=== PATIENT | female | born 1940 | race Caucasian/White ===

== ENCOUNTER 2021-05-22 10:22 | Outpatient (CLI) | payer MEDICARE, SELFPAY ==
--- NOTE | 2021-05-22 10:28 | XRR_ITS ---
PROCEDURE INFORMATION: Exam: XR Chest Exam date and time: 05/22/2021 10:28 AM Age: 80 years old Clinical indication: Cough and shortness of breath; Additional info: Chronic cough TECHNIQUE: Imaging protocol: XR of the chest. Views: 2 views. COMPARISON: CR XR ribs RT mn 3V w CXR1V [id number] 08/30/2020 3:00 PM FINDINGS: Lungs: Unremarkable. No consolidation. Pleural spaces: Unremarkable. No pleural effusion. No pneumothorax. Heart/Mediastinum: Unremarkable. No cardiomegaly. Bones/joints: Unremarkable. XR/XR chest 2V* [id number] IMPRESSION: No acute findings. Radiation Dose CTDIVOL = (mGy): DLP = (mGy-cm)
== END 2021-05-22 10:23 | disposition home or self-care (01) ==
PROVIDERS: PCP Family Medicine; Visit Provider Otolaryngology
DX: R05.3 Chronic cough (principal)
CPT/HCPCS: 71046

== ENCOUNTER 2021-08-13 15:11 | Observation (INO) | payer MEDICARE, OTHER, SELFPAY ==
[2021-08-13] VITALS (14 sets, daily range): BP systolic 135–150; BP diastolic 61–90; PULSE 74–78; RESP 16–24; TEMP 36.1–36.8; O2SAT 91–99; BMI 36.1
--- NOTE | 2021-08-13 15:16 | CTR_ITS ---
PROCEDURE INFORMATION: Exam: CT Head Without Contrast Exam date and time: 08/13/2021 3:16 PM Age: 81 years old Clinical indication: Weakness, extremity; Left; Additional info: Left sided weakness TECHNIQUE: Imaging protocol: Computed tomography of the head without contrast. Radiation optimization: All CT scans at this facility use at least one of these dose optimization techniques: automated exposure control; mA and/or kV adjustment per patient size (includes targeted exams where dose is matched to clinical indication); or iterative reconstruction. Other technique: STROKE PROTOCOL was implemented. COMPARISON: No relevant prior studies available. RADIATION DOSE METRICS: Total DLP (mGy-cm): 630.07 FINDINGS: Brain: No hemorrhage. No edema. Moderate diffuse cerebral atrophy and sequela of chronic small vessel ischemic disease. No mass effect. Cerebral ventricles: No ventriculomegaly. Paranasal sinuses: Visualized sinuses are unremarkable. No fluid levels. Mastoid air cells: Visualized mastoid air cells are well aerated. Bones/joints: Unremarkable. No acute fracture. Soft tissues: Unremarkable. CT/CT head wo con* [id number] IMPRESSION: No acute intracranial abnormality. ASSESSMENT: ASPECTS ([place] Stroke Program Early CT Score) is 10.
--- NOTE | 2021-08-13 15:17 | CTR_ITS ---
PROCEDURE INFORMATION: Exam: CT Angiography Head With Contrast, Arteriography Exam date and time: 08/13/2021 3:17 PM Age: 81 years old Clinical indication: Weakness; Additional info: Weakness; Left side weakness and expressive aphasia, potential CVA TECHNIQUE: Imaging protocol: Computed tomography angiography of the head with contrast. Exam focused on the arteries. 3D rendering (Not supervised by radiologist): MIP and/or 3D reconstructed images were created by the technologist. Radiation optimization: All CT scans at this facility use at least one of these dose optimization techniques: automated exposure control; mA and/or kV adjustment per patient size (includes targeted exams where dose is matched to clinical indication); or iterative reconstruction. Contrast material: VISI 320; Contrast volume: 95 ml; Contrast route: INTRAVENOUS (IV); COMPARISON: CT head wo con* [id number] 08/13/2021 3:15 PM RADIATION DOSE METRICS: Total DLP (mGy-cm): 2172.98 FINDINGS: ANTERIOR CIRCULATION: Right internal carotid artery: Unremarkable. Intracranial segment is patent with no significant stenosis. No aneurysm. Right middle cerebral artery: Unremarkable. No occlusion or significant stenosis. No aneurysm. Right anterior cerebral artery: Unremarkable. No occlusion or significant stenosis. No aneurysm. Left internal carotid artery: Unremarkable. Intracranial segment is patent with no significant stenosis. No aneurysm. Left middle cerebral artery: Unremarkable. No occlusion or significant stenosis. No aneurysm. Left anterior cerebral artery: Unremarkable. No occlusion or significant stenosis. No aneurysm. POSTERIOR CIRCULATION: Right vertebral artery: Unremarkable. No occlusion or significant stenosis. No aneurysm. Left vertebral artery: Unremarkable. No occlusion or significant stenosis. No aneurysm. Basilar artery: Unremarkable. No occlusion or significant stenosis. No aneurysm. Right posterior cerebral artery: Unremarkable. No occlusion or significant stenosis. No aneurysm. Left posterior cerebral artery: Unremarkable. No occlusion or significant stenosis. No aneurysm. Brain: No definite mass, mass effect, or midline shift. Cerebral ventricles: No ventriculomegaly. Bones/joints: Unremarkable. No acute fracture. Soft tissues: Unremarkable. PROCEDURE INFORMATION: Exam: CT Angiography Neck With Contrast Exam date and time: 08/13/2021 3:17 PM Age: 81 years old Clinical indication: Weakness; Additional info: Weakness; Left side weakness and expressive aphasia, potential CVA TECHNIQUE: Imaging protocol: Computed tomography angiography of the neck with contrast. 3D rendering (Not supervised by radiologist): MIP and/or 3D reconstructed images were created by the technologist. Radiation optimization: All CT scans at this facility use at least one of these dose optimization techniques: automated exposure control; mA and/or kV adjustment per patient size (includes targeted exams where dose is matched to clinical indication); or iterative reconstruction. Contrast material: VISI 320; Contrast volume: 95 ml; Contrast route: INTRAVENOUS (IV); COMPARISON: CT head wo con* [id number] 08/13/2021 3:15 PM RADIATION DOSE METRICS: Total DLP (mGy-cm): 2172.98 FINDINGS: Right common carotid artery: No stenosis. No dissection or occlusion. Right internal carotid artery: Mild stenosis at the origin of the right internal carotid artery with less than 50% luminal narrowing. No dissection or occlusion. Right external carotid artery: No occlusion or stenosis of the origin. Left common carotid artery: No stenosis. No dissection or occlusion. Left internal carotid artery: Mild stenosis at the origin of the left internal carotid artery with less than 50% luminal narrowing. No dissection or occlusion. Left external carotid artery: No occlusion or stenosis of the origin. Right vertebral artery: No stenosis. No dissection or occlusion. Left vertebral artery: No stenosis. No dissection or occlusion. Soft tissues: Normal. No significant soft tissue swelling. Bones/joints: No acute fracture. CT/CT angio headneck* [id number] IMPRESSION: No large vessel stenosis or occlusion. IMPRESSION: Mild stenosis at the origins of both internal carotid arteries. No significant stenosis or occlusion. REFERENCES: NASCET CRITERIA. The degree of internal carotid artery stenosis is based on NASCET criteria. Normal is no stenosis. Mild is less than 50% stenosis. Moderate is 50-69% stenosis. Severe is 70% to 99% stenosis. Total occlusion is no detectable patent lumen.
--- NOTE | 2021-08-13 15:18 | ECG_ITS ---
[facility] Test Date: 2021-08-13 Pat Name: Shena Moreno Department: Room: Gender: Female Splitter Head: : 1940 Requested By: Hieu Yost Order Number: [id number] Monika MD: Roland Colunga M.D. 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 [id number]
--- NOTE | 2021-08-13 15:18 | XRR_ITS ---
PROCEDURE INFORMATION: Exam: XR Chest Exam date and time: 08/13/2021 3:18 PM Age: 81 years old Clinical indication: Other: Weakness; Additional info: L side weakness TECHNIQUE: Imaging protocol: XR of the chest. Views: 1 view. COMPARISON: CR XR chest 2V* [id number] 05/22/2021 10:39 AM FINDINGS: Lungs: Diffuse coarsening of the lung parenchyma. No consolidation. Pleural spaces: No pleural effusion. No pneumothorax. Heart/Mediastinum: Mild cardiomegaly. Bones/joints: Visualized osseous structures are intact. XR/XR chest 1V portable [id number] IMPRESSION: Mild cardiomegaly. No acute findings.
--- NOTE | 2021-08-13 15:21 | W.ED.NEUROSD ---
HPI - Neuro Symptoms/Deficit General: Chief Complaint: Neuro Symptoms/Deficit Stated Complaint: LEFT SIDED WEAKNESS; DYSPHASIA Time Seen by Provider: 08/13/21 15:18 Source: EMS Mode of arrival: EMS Limitations: no limitations History of Present Illness: Due toAccording to EMS, patient had witnessed left upper and lower extremity weakness with expressive aphasia the started at 1420 today. Patient reportedly had blood pressure 150/78 in route with heart rate of 80 and atrial fibrillation with occasional PVCs on their monitor. Oxygen saturation was 92% on room air for them. When paramedics, possible history includes hypothyroidism, anxiety, hypertension. Patient states that when she was at home she was having trouble putting a bag in the freezer with her left hand. She states she felt numbness in her left upper extremity and hand. She states she has chronic numbness and tingling in her feet. Diabetic neuropathy. She is a insulin-dependent diabetic. see nursing assessment. Last Observed Normal: 14:20 Associated symptoms: Reports headache(s) (Behind the left brow); Deny chest pain, nausea or vomiting Review of Systems Narrative: Patient awake alert and oriented x3 at this time. According to family, patient had expressive aphasia earlier but this is cleared now. Const: Denies: fever(s) or chills Eyes: Denies: change in vision ENMT: Denies: throat pain Card: Denies: chest pain, palpitations, edema or lightheadedness Resp: Denies: dyspnea GI: Denies: abdominal pain, nausea or vomiting : Denies: flank pain Musc: Denies: neck pain, back pain, extremity pain, extremity swelling or joint pain Skin/Breast: Denies: rash or pruritus Neuro: Reports: headache(s) (Behind the left brow), weakness in extremities, lack of coordination and other (Expressive aphasia; paresthesias and weakness to the left upper extremity) Psych: Denies: anxiety Aaron/Lymph: Denies: enlarged lymph nodes PFSH ED PFSH: Family History Other Diabetes Heart disease NIH stroke score NIHSS: Level Of Consciousness - 1a: 0 Level Of Consciousness Questions - 1b: Both Correct Level Of Consciousness Commands - 1c: Both Correct Best Gaze - 2: Normal Visual Keyes - 3: No Visual Loss Facial Palsy - 4: Minor Paralysis Motor Arm Right - 5: No Drift Motor Arm Left - 5: Drift (Mild) Motor Leg Right - 6: No Drift Motor Leg Left - 6: No Drift Limb Ataxia - 7: Present In One Limb (Mild) Sensory - 8: Mild To Moderate Loss Best Language - 9: No Aphasia Dysarthia - 10: Normal Extinction And Inattention - 11: 0 Score: Total Score: 4 Physical Exam Const: COMMON NORMALS: no acute distress, patient oriented x3, no limitations, alert and well nourished GENERAL APPEARANCE: cooperative NUTRITIONAL APPEARANCE: obese ORIENTATION/CONSCIOUSNESS: Yes oriented to person and Yes oriented to time HENMT: COMMON NORMALS: normocephalic and atraumatic HEAD & SCALP: normocephalic and atraumatic FACE & SINUS: normal facial exam Eye: COMMON NORMALS: EOMs intact bilaterally Neck/C-Spine: COMMON NORMALS: full ROM, no lymphadenopathy, supple and no meningeal signs GENERAL: Yes normal visual inspection CAROTIDS: No bruit Lymph: LYMPHATIC: no lymphadenopathy noted Chest: COMMONS NORMALS: normal inspection of the chest and normal palpation of entire chest wall CHEST: No Ecchymosis present and No rash Resp: COMMON NORMALS: normal respiratory effort, No retractions and clear to auscultation bilaterally EFFORT & INSPECTION: No respiratory distress AUSCULTATION: clear to auscultation bilaterally Cardio: COMMON NORMALS: regular rate, regular rhythm and Peripheral pulses 2+ throughout JUGULAR VENOUS DISTENTION: no JVD RATE: regular rate RHYTHM: regular rhythm and other (Occasional ectopy) PERIPHERAL PULSES: Peripheral pulses 2+ throughout GI: COMMON NORMALS: Normal to inspection, nondistended, normoactive bowel sounds present and non-tender (Obese) : COMMON NORMALS: Yes no CVA tenderness BLADDER/KIDNEY EXAM: Yes no CVA tenderness Back/Pelvis: COMMON NORMALS: no CVA tenderness Extremity: COMMON NORMALS: normal to inspection, full ROM and capillary refill normal Neuro: LYNSEY COMA SCALE: other (15) COMMON NORMALS: patient oriented x3, CN's II-XII intact bilaterally, no focal motor deficits and no sensory deficits noted SENSORIUM/ORIENTATION: Yes alert, Yes oriented to person and Yes oriented to time MENINGEAL SIGNS: Yes no meningeal signs OTHER: Patient has minimal ataxia to the left upper extremity. Patient has 4+ out of 5 strength in the left upper and lower extremity. Patient states she has numbness in the left upper extremity. She also has chronic numbness and tingling in both feet due to diabetic neuropathy. She has minimal flattening of the nasolabial fold to the left side of the face with smile. Speech is normal. Psych: COMMON NORMALS: mental status grossly normal and Normal thought process present THOUGHT PROCESS: Normal thought process present Skin: COMMON NORMALS: no rashes or lesions noted and no wounds GENERAL SKIN EXAM: no rashes or lesions noted Course Vital Signs: Vital signs: Vital Signs Temperature 98.2 F 08/13/21 15:31 Pulse Rate 77 08/13/21 17:10 Respiratory Rate 18 08/13/21 17:10 Blood Pressure 150/72 08/13/21 17:10 Pulse Oximetry 94 08/13/21 17:10 MDM - Neuro Symptoms/Deficit Medical Decision Making Family states patient did have expressive aphasia earlier. Family states speech is normal now. Family also states use of the left upper and lower extremities have improved dramatically. Patient still has deficits minimally in the left lower extremity. Patient has mild deficit in the left upper extremity. Lab Data I reviewed the patient's lab results. : 08/13/21 15:00 08/13/21 15:[address] 08/13/21 15:16 IMPRESSION: No acute intracranial abnormality. ASSESSMENT: ASPECTS ([place] Stroke Program Early CT Score) is 10. Head/Neck CTA 08/13/21 15:17 IMPRESSION: No large vessel stenosis or occlusion. IMPRESSION: Mild stenosis at the origins of both internal carotid arteries. No significant stenosis or occlusion. REFERENCES: NASCET CRITERIA. The degree of internal carotid artery stenosis is based on NASCET criteria. Normal is no stenosis. Mild is less than 50% stenosis. Moderate is 50-69% stenosis. Severe is 70% to 99% stenosis. Total occlusion is no detectable patent lumen. Chest X-Ray 08/13/21 15:18 IMPRESSION: Mild cardiomegaly. No acute findings. Laboratory Results WBC 10.6 10^3/uL (4.0-10.0) H 08/13/21 15:00 RBC 5.08 10^6/uL (4.1-5.3) 08/13/21 15:00 Hgb 14.4 g/dL (11.5-15.3) 08/13/21 15:00 Hct 44.1 % (37.0-47.0) 08/13/21 15:00 MCV 86.8 fl (81-99) 08/13/21 15:00 MCH 28.3 pg (28.0-34.0) 08/13/21 15:00 MCHC 32.7 g/dL (30.0-36.0) 08/13/21 15:00 RDW 14.0 % (12.1-15.1) 08/13/21 15:00 Plt Count 313 10^3/cmm (130-400) 08/13/21 15:00 MPV 10.2 fL (7.4-10.4) 08/13/21 15:00 Neut % (Auto) 57.9 % 08/13/21 15:00 Lymph % (Auto) 27.2 % 08/13/21 15:00 Dickey % (Auto) 9.1 % 08/13/21 15:00 Eos % (Auto) 4.6 % 08/13/21 15:00 Baso % (Auto) 0.8 % 08/13/21 15:00 Neut # (Auto) 6.16 10^3/uL (1.8-7.7) 08/13/21 15:00 Lymph # (Auto) 2.9 10^3/uL (0.8-4.8) 08/13/21 15:00 Dickey # (Auto) 1.0 10^3/uL (0.2-0.9) H 08/13/21 15:00 Eos # (Auto) 0.5 10^3/uL (0.0-0.8) 08/13/21 15:00 Baso # (Auto) 0.1 10^3/uL (0.0-0.1) 08/13/21 15:00 Nucleated RBC % (auto) 0 % 08/13/21 15:00 Nucleated RBCs # 0.0 /100WBC 08/13/21 15:00 PT 13.80 SECONDS (12.1-14.9) 08/13/21 15:00 INR 1.03 (0.8-1.2) 08/13/21 15:00 APTT 27.4 SECONDS (23.9-36.7) 08/13/21 15:00 Sodium 137 mmol/L (136-145) 08/13/21 15:00 Potassium 3.5 mmol/L (3.5-5.1) 08/13/21 15:00 Chloride 99 mmol/L (98-107) 08/13/21 15:00 Carbon Dioxide 27 mmol/L (22-29) 08/13/21 15:00 Anion Gap 14.5 (5-19) 08/13/21 15:00 BUN 13 mg/dL (8-23) 08/13/21 15:00 Creatinine 0.5 mg/dL (0.5-0.9) 08/13/21 15:00 GFR Calculation Not Reportable 08/13/21 15:00 Glucose 207 mg/dL (65-115) H 08/13/21 15:00 POC Glucose 172 mg/dL (70-110) H 08/13/21 15:26 Calculated Osmolality 290 mOsm/kg (285-295) 08/13/21 15:00 Calcium 9.6 mg/dL (8.5-10.5) 08/13/21 15:00 Magnesium 1.7 mg/dL (1.7-2.3) 08/13/21 15:00 Total Bilirubin 0.5 mg/dL (0.15-1.2) 08/13/21 15:00 AST 14 U/L (0-32) 08/13/21 15:00 ALT 15 U/L (0-33) 08/13/21 15:00 Alkaline Phosphatase 97 IU/L (35-105) 08/13/21 15:00 Troponin T Baseline 15 ng/L (0-10) H 08/13/21 15:00 Total Protein 6.7 g/dL (6.6-8.7) 08/13/21 15:00 Albumin 4.2 g/dL (3.5-5.2) 08/13/21 15:00 Globulin 2.5 g/dL (1.3-4.6) 08/13/21 15:[address] Head: Radiologist's impression: PROCEDURE INFORMATION: Exam: CT Head Without Contrast Exam date and time: 08/13/2021 3:16 PM Age: 81 years old Clinical indication: Weakness, extremity; Left; Additional info: Left sided weakness TECHNIQUE: Imaging protocol: Computed tomography of the head without contrast. Radiation optimization: All CT scans at this facility use at least one of these dose optimization techniques: automated exposure control; mA and/or kV adjustment per patient size (includes targeted exams where dose is matched to clinical indication); or iterative reconstruction. Other technique: STROKE PROTOCOL was implemented. COMPARISON: No relevant prior studies available. RADIATION DOSE METRICS: Total DLP (mGy-cm): 630.07 FINDINGS: Brain: No hemorrhage. No edema. Moderate diffuse cerebral atrophy and sequela of chronic small vessel ischemic disease. No mass effect. Cerebral ventricles: No ventriculomegaly. Paranasal sinuses: Visualized sinuses are unremarkable. No fluid levels. Mastoid air cells: Visualized mastoid air cells are well aerated. Bones/joints: Unremarkable. No acute fracture. Soft tissues: Unremarkable. CT/CT head wo con* [id number] IMPRESSION: No acute intracranial abnormality. ? ASSESSMENT: ASPECTS ([place] Stroke Program Early CT Score) is 10. ? Dictated By: Thierno Pryor DO Signed By: Thierno Pryor DO Signed Date/Time: 08/13/[address]: Radiologist's impression: PROCEDURE INFORMATION: Exam: CT Angiography Neck With Contrast Exam date and time: 08/13/2021 3:17 PM Age: 81 years old Clinical indication: Weakness; Additional info: Weakness; Left side weakness and expressive aphasia, potential CVA TECHNIQUE: Imaging protocol: Computed tomography angiography of the neck with contrast. 3D rendering (Not supervised by radiologist): MIP and/or 3D reconstructed images were created by the technologist. Radiation optimization: All CT scans at this facility use at least one of these dose optimization techniques: automated exposure control; mA and/or kV adjustment per patient size (includes targeted exams where dose is matched to clinical indication); or iterative reconstruction. Contrast material: VISI 320; Contrast volume: 95 ml; Contrast route: INTRAVENOUS (IV);? COMPARISON: CT head wo con* [id number] 08/13/2021 3:15 PM RADIATION DOSE METRICS: Total DLP (mGy-cm): 2172.98 FINDINGS: Right common carotid artery: No stenosis. No dissection or occlusion. Right internal carotid artery: Mild stenosis at the origin of the right internal carotid artery with less than 50% luminal narrowing. No dissection or occlusion. Right external carotid artery: No occlusion or stenosis of the origin.? Left common carotid artery: No stenosis. No dissection or occlusion. Left internal carotid artery: Mild stenosis at the origin of the left internal carotid artery with less than 50% luminal narrowing. No dissection or occlusion. Left external carotid artery: No occlusion or stenosis of the origin.? Right vertebral artery: No stenosis. No dissection or occlusion. Left vertebral artery: No stenosis. No dissection or occlusion. Soft tissues: Normal. No significant soft tissue swelling. Bones/joints: No acute fracture. CT/CT angio headneck* [id number] IMPRESSION: No large vessel stenosis or occlusion. ? ? IMPRESSION: Mild stenosis at the origins of both internal carotid arteries. No significant stenosis or occlusion. ? REFERENCES: NASCET CRITERIA. The degree of internal carotid artery stenosis is based on NASCET criteria. Normal is no stenosis. Mild is less than 50% stenosis. Moderate is 50-69% stenosis. Severe is 70% to 99% stenosis. Total occlusion is no detectable patent lumen. ? Dictated By: Thierno Pryor DO Signed By: Thierno Pryor DO Signed Date/Time: 08/13/21 1541 CXR: Radiologist's impression: PROCEDURE INFORMATION: Exam: XR Chest Exam date and time: 08/13/2021 3:18 PM Age: 81 years old Clinical indication: Other: Weakness; Additional info: L side weakness TECHNIQUE: Imaging protocol: XR of the chest. Views: 1 view. COMPARISON: CR XR chest 2V* [id number] 05/22/2021 10:39 AM FINDINGS: Lungs: Diffuse coarsening of the lung parenchyma. No consolidation. Pleural spaces: No pleural effusion. No pneumothorax. Heart/Mediastinum: Mild cardiomegaly. Bones/joints: Visualized osseous structures are intact. XR/XR chest 1V portable [id number] IMPRESSION: Mild cardiomegaly. No acute findings. ? Dictated By: Thierno Pryor DO Signed By: Thierno Pryor DO Signed Date/Time: 08/13/21 1609 EKG Data EKG 1: I personally reviewed and interpreted this EKG as follows: EKG interpretation date: 08/13/21 EKG interpretation time: 15:45 Prior EKG tracings: not available for review Interpretation: EKG shows normal sinus rhythm with first-degree AV block, early repolarization. Normal P wave, normal T wave. Nonspecific ST-T changes with early repolarization. Prolonged QT interval of QT of 0.445 seconds. Normal axis. Other Data 1541: Telemetry shows normal sinus rhythm with occasional PACs heart rate 78. 1626: nurse states pt passed dysphagia screen. awaiting tele-neuro consult. 1730: Dr. Ornelas teleneurologist from [facility] examined the patient via telemedicine. He stated the patient had NIH score or of 1 at the time of his exam. He said there was mild ataxia in the left upper extremity. He states the rest of the symptoms had resolved. He does not right recommend thrombolytics. He does recommend observation in the hospital. I did discuss the case with the hospitalist Dr. Whitfield. He will see the patient emergency room. I did write bridge orders. Discharge Plan Discharge Patient Disposition: Placed in Observation Clinical Impression: Cerebrovascular accident Qualifiers: CVA mechanism: unspecified Qualified Code(s): I63.9 - Cerebral infarction, unspecified Diabetes mellitus Qualifiers: Diabetes mellitus type: type 2 Diabetes mellitus senior living insulin use: with senior living use Diabetes mellitus complication status: with hyperglycemia Qualified Code(s): E11.65 - Type 2 diabetes mellitus with hyperglycemia Coding Level of Care Code ED Polishing Wheel Setter for g Fwd Exam Comprehensive
[2021-08-13] MEDS: iodixanol 320 mg/mL 100mL Btl IV (15:22)
[2021-08-13 15:28] LABS: Basophils # 0.1 10^3/uL (0.0-0.1); Basophils % 0.8 %; Eosinophils # 0.5 10^3/uL (0.0-0.8); Eosinophils % 4.6 %; Hematocrit 44.1 % (37.0-47.0); Hemoglobin 14.4 g/dL (11.5-15.3); Lymphocytes # 2.9 10^3/uL (0.8-4.8); Lymphocytes % 27.2 %; Mean Corpuscular HGB Conc 32.7 g/dL (30.0-36.0); Mean Corpuscular Hemoglobin 28.3 pg (28.0-34.0); Mean Corpuscular Volume 86.8 fl (81-99); Mean Platelet Volume 10.2 fL (7.4-10.4); Monocytes % 9.1 %; Neutrophils # 6.16 10^3/uL (1.8-7.7); Neutrophils % 57.9 %; Nucleated Red Blood Cells % 0 %; Platelet Count 313 10^3/cmm (130-400); Red Blood Count 5.08 10^6/uL (4.1-5.3); White Blood Count 10.6 10^3/uL (4.0-10.0)
[2021-08-13 15:30] LABS: Glucose Point of Care 172 mg/dL (70-110)
[2021-08-13 15:48] LABS: INR 1.03 (0.8-1.2)
[2021-08-13 15:50] LABS: Partial Thromboplastin Time 27.4 SECONDS (23.9-36.7)
[2021-08-13 15:59] LABS: Alanine Aminotransferase 15 U/L (0-33); Albumin Level 4.2 g/dL (3.5-5.2); Alkaline Phosphatase 97 IU/L (35-105); Anion Gap 14.5 (5-19); Aspartate Amino Transferase 14 U/L (0-32); Blood Urea Nitrogen 13 mg/dL (8-23); Calcium 9.6 mg/dL (8.5-10.5); Carbon Dioxide 27 mmol/L (22-29); Chloride 99 mmol/L (98-107); Globulin 2.5 g/dL (1.3-4.6); Glucose 207 mg/dL (65-115); Magnesium 1.7 mg/dL (1.7-2.3); Osmolality Calculated 290 mOsm/kg (285-295); Potassium 3.5 mmol/L (3.5-5.1); Sodium 137 mmol/L (136-145); Total Bilirubin 0.5 mg/dL (0.15-1.2); Total Protein 6.7 g/dL (6.6-8.7); Troponin(5th) Baseline 15 ng/L (0-10)
[2021-08-13] MEDS: acetaminophen 325 mg Tablet 650 MG PO (17:10)
--- NOTE | 2021-08-13 17:11 | PC.NURSE ---
Telehealth in process with [facility] .
--- NOTE | 2021-08-13 17:40 | PC.NURSE ---
patient assisted to bed nathan per myself and Kale Rn with no difficulties. patient urinated approx 200 ml of clear, yellow urine. patient re-positioned in bed . patient in no obivous distress. Patinet on case monitor. Side rails raised x 2 and bed inl ow, locked position. call light within reach. Family at bedside.
[2021-08-13 17:42] LABS: Troponin 5 2HR 13.46 ng/L (0-10)
[2021-08-13 17:47] LABS: Troponin 5 2HR Delta -1.54 ABS# (0-10)
[2021-08-13] MEDS: clopidogrel 75 mg Tablet PO (17:58)
--- NOTE | 2021-08-13 18:18 | P.HP_ITS ---
Providers/Chief Complaint Primary Care Provider: Nuris Moran DO Chief Complaint: LEFT SIDED WEAKNESS; DYSPHASIA History of Present Illness History as per patient,communication with ERP and chart review. Shena Moreno is a 81 year old female with past medical history of hypertension, hypothyroidism, insulin-dependent type 2 diabetes mellitus, migraine headache who was brought into the ER via EMS today after history taken through the patient, patient had witnessed left upper and lower extremity weakness with expressive aphasia the started at 1420 today. During the stay in the ER patient remained hemodynamically stable and continued to improve. By the time I had seen the patient patient's weakness had improved and had minimal weakness in the left upper extremities. 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 CT imaging ordered as below. Timeframe as per my review of the chart is as follows: 162: Nurse states pt passed dysphagia screen.? Awaiting tele-neuro consult. 1729:? Dr. Ornelas teleneurologist from [facility] examined the patient via telemedicine.? He stated the patient had NIH score or of 1 at the time of his exam.? He said there was mild ataxia in the left upper extremity.? He states the rest of the symptoms had resolved.? He does not right recommend thrombolytics.? He does recommend observation in the hospital.? Review of Systems General: Reports: 10 or more systems reviewed and unremarkable except in HPI and below Const: Denies: fever(s), chills, body aches, change in appetite, change in weight, malaise, night sweats, diaphoresis, change in sleep pattern, daytime s leepiness or snoring Eyes: Denies: change in vision, blurry vision, photophobia, eye discomfort or eye discharge ENMT: Denies: throat pain, enlarged tonsils, hoarseness, mouth pain, oral sores, dry mouth, tinnitus, nasal congestion or post nasal drip Card: Denies: chest pain, palpitations, irregular heart rhythm, edema, swelling of feet/ankles, lightheadedness, syncope, pre-syncope, dyspnea on exertion, orthopnea, leg pain with exertion or acrocyanosis Resp: Denies: dyspnea, productive cough, non-productive cough, wheezing, stridor, pain on inspiration, change in phlegm color, hemoptysis or chest congestion GI: Denies: abdominal pain, nausea, vomiting, hematemesis, coffee ground emesis, dysphagia, heartburn, diarrhea, constipation, bloating, GI cramping, change in bowel habits, pain on defecation, hematochezia or melena : Denies: flank pain, dysuria, urinary frequency, urinary urgency, urinary hesitancy, nocturia or hematuria Musc: Denies: neck pain, back pain, extremity pain, joint pain, joint swelling, joint redness, joint stiffness or limited range of motion Neuro: Denies: headache(s), numbness in extremities, weakness in extremities, sensory changes, lack of coordination, difficulty walking, frequent falls, dizziness, vertigo, confusion, Slurred speech present, difficulty communicating thoughts or seizure-like activity Psych: Denies: anxiety, depression, mood swings, panic attacks, hopelessness or irritability Endo: Denies: polyuria, polydipsia, tired all the time, cold intolerance, excessive sweating, flushing or heat intolerance Aaron/Lymph: Denies: easy bruising or easy bleeding All/Imm: Denies: tongue swelling, facial swelling or acute wheezing Medications/Allergies Home Medications Medication Instructions Recorded Confirmed Last Taken Type albuterol sulfate 90 mcg/actuation 2 puff INHALATION Q4H PRN gm 07/10/19 08/13/21 Unknown History aerosol inhaler (Proventil HFA) blood sugar diagnostic (OneTouch #10 each 07/10/19 08/13/21 Unknown History Ultra Blue Test Strip) cetirizine 10 mg tablet (All Day 10 mg PO DAILY tab 07/10/19 08/13/21 08/12/21 History Allergy (cetirizine)) cholecalciferol (vitamin D3) 125 5,000 unit PO .COMPLEX cap 07/10/19 08/13/21 Unknown History mcg (5,000 unit) capsule dapagliflozin 10 mg tablet 10 mg PO QAM 07/10/19 08/13/21 08/13/21 History (Farxiga) fluticasone propionate 50 2 spray INTRANASAL QDAY 07/10/19 08/13/21 Unknown History mcg/actuation nasal spray,suspension hard/soft/gas permeable prods #12 ml 07/10/19 08/13/21 Unknown History (Systane Contacts) losartan 25 mg tablet (Cozaar) 25 mg PO DAILY 07/10/19 08/13/21 08/12/21 History pantoprazole 20 mg tablet,delayed 20 mg PO DAILY 07/10/19 08/13/21 08/12/21 History release pen needle, diabetic 31 gauge x #30 each 07/10/19 08/13/21 Unknown History 11/06 (Comfort EZ Pen [place]) polyethylene glycol 3350 17 17 gm PO DAILY PRN 07/10/19 08/13/21 Unknown History gram/dose oral powder (Miralax) hydroxyzine HCl 25 mg tablet 25 mg PO ONCE PRN #30 tab 07/14/19 08/13/21 Unknown Rx atorvastatin 10 mg tablet 10 mg PO DAILY 08/13/21 08/13/21 08/12/21 History duloxetine 30 mg capsule,delayed 30 mg PO BEDTIME 08/13/21 08/13/21 08/12/21 History release insulin glargine U-300 conc 300 36 unit SUBCUT QDAY 08/13/21 08/13/21 08/13/21 History unit/mL (3 mL) subcutaneous pen (Toujeo Max U-300 SoloStar) levothyroxine 50 mcg tablet 50 mcg PO DAILY 08/13/21 08/13/21 08/13/21 History semaglutide (Ozempic) 0.5 mg SUBCUT Q7D 08/13/21 08/13/21 08/13/21 History Allergies Allergy/AdvReac Type Severity Reaction Status Date / Time CLEMENTE Inhibitors Allergy ADR-Cough Verified 01/27/20 13:27 aspirin Allergy ADR-Nausea Verified 01/27/20 13:27 codeine Allergy ALGY-Swell Verified 01/27/20 13:27 Lip/Tongue/Throat metformin Allergy ADR-Diarrhe Verified 01/27/20 13:27 a nitrofurantoin Allergy ALGY-Rash Verified 01/27/20 13:27 [From Macrobid] PFSH Acute PFSH: Medical History Anxiety Bile reflux esophagitis Diabetes mellitus type 2 in obese DJD (degenerative joint disease) Hypertension, benign Hypothyroidism Insulin long-term use Myalgia Family History Other Diabetes Heart disease Vitals/I&O/Wt Last Vital Signs Temp 98.2 F 08/13/21 15:31 Pulse 77 08/13/21 17:10 Resp 18 08/13/21 17:10 BP 150/72 08/13/21 17:10 Pulse Ox 94 08/13/21 17:10 Weight last 48 hrs Weight 89.63 kg Physical Exam Narrative: General: No acute distress, AO x3 HEENT: PERRLA, pupils bilaterally equal and reactive Chest: Normal vesicular breath sounds, no added sounds, equal good air entry bilaterally CVS: S1-S2 regular, no murmurs, no tachycardia, no gallops, no rubs Abdomen: Soft, nontender, no organomegaly, bowel sounds present Neuro: patient oriented x3, CN's II-XII intact bilaterally, no focal motor deficits and no sensory deficits noted? SENSORIUM/ORIENTATION: Yes alert, Yes oriented to person and Yes oriented to time? MENINGEAL SIGNS: No meningeal signs? OTHER: Patient has minimal ataxia to the left upper extremity.? Patient has 4+ out of 5 strength in the left upper and lower extremity.? Patient states she has numbness in the left upper extremity.? She also has chronic numbness and tingling in both feet due to diabetic neuropathy.? She has minimal flattening of the nasolabial fold to the left side of the face with smile.? Speech is normal. Data : 08/14/21 02:37 08/14/21 02:37 Other Labs: Radiology Impressions Head CT 08/13/21 15:16 IMPRESSION: No acute intracranial abnormality. ASSESSMENT: ASPECTS ([place] Stroke Program Early CT Score) is 10. Head/Neck CTA 08/13/21 15:17 IMPRESSION: No large vessel stenosis or occlusion. IMPRESSION: Mild stenosis at the origins of both internal carotid arteries. No significant stenosis or occlusion. REFERENCES: NASCET CRITERIA. The degree of internal carotid artery stenosis is based on NASCET criteria. Normal is no stenosis. Mild is less than 50% stenosis. Moderate is 50-69% stenosis. Severe is 70% to 99% stenosis. Total occlusion is no detectable patent lumen. Chest X-Ray 08/13/21 15:18 IMPRESSION: Mild cardiomegaly. No acute findings. Laboratory Results WBC 10.6 10^3/uL (4.0-10.0) H 08/13/21 15:00 RBC 5.08 10^6/uL (4.1-5.3) 08/13/21 15:00 Hgb 14.4 g/dL (11.5-15.3) 08/13/21 15:00 Hct 44.1 % (37.0-47.0) 08/13/21 15:00 MCV 86.8 fl (81-99) 08/13/21 15:00 MCH 28.3 pg (28.0-34.0) 08/13/21 15:00 MCHC 32.7 g/dL (30.0-36.0) 08/13/21 15:00 RDW 14.0 % (12.1-15.1) 08/13/21 15:00 Plt Count 313 10^3/cmm (130-400) 08/13/21 15:00 MPV 10.2 fL (7.4-10.4) 08/13/21 15:00 Neut % (Auto) 57.9 % 08/13/21 15:00 Lymph % (Auto) 27.2 % 08/13/21 15:00 [place] % (Auto) 9.1 % 08/13/21 15:00 Eos % (Auto) 4.6 % 08/13/21 15:00 Baso % (Auto) 0.8 % 08/13/21 15:00 Neut # (Auto) 6.16 10^3/uL (1.8-7.7) 08/13/21 15:00 Lymph # (Auto) 2.9 10^3/uL (0.8-4.8) 08/13/21 15:00 [place] # (Auto) 1.0 10^3/uL (0.2-0.9) H 08/13/21 15:00 Eos # (Auto) 0.5 10^3/uL (0.0-0.8) 08/13/21 15:00 Baso # (Auto) 0.1 10^3/uL (0.0-0.1) 08/13/21 15:00 Nucleated RBC % (auto) 0 % 08/13/21 15:00 Nucleated RBCs # 0.0 /100WBC 08/13/21 15:00 PT 13.80 SECONDS (12.1-14.9) 08/13/21 15:00 INR 1.03 (0.8-1.2) 08/13/21 15:00 APTT 27.4 SECONDS (23.9-36.7) 08/13/21 15:00 Sodium 137 mmol/L (136-145) 08/13/21 15:00 Potassium 3.5 mmol/L (3.5-5.1) 08/13/21 15:00 Chloride 99 mmol/L (98-107) 08/13/21 15:00 Carbon Dioxide 27 mmol/L (22-29) 08/13/21 15:00 Anion Gap 14.5 (5-19) 08/13/21 15:00 BUN 13 mg/dL (8-23) 08/13/21 15:00 Creatinine 0.5 mg/dL (0.5-0.9) 08/13/21 15:00 GFR Calculation Not Reportable 08/13/21 15:00 Glucose 207 mg/dL (65-115) H 08/13/21 15:00 POC Glucose 172 mg/dL (70-110) H 08/13/21 15:26 Calculated Osmolality 290 mOsm/kg (285-295) 08/13/21 15:00 Calcium 9.6 mg/dL (8.5-10.5) 08/13/21 15:00 Magnesium 1.7 mg/dL (1.7-2.3) 08/13/21 15:00 Total Bilirubin 0.5 mg/dL (0.15-1.2) 08/13/21 15:00 AST 14 U/L (0-32) 08/13/21 15:00 ALT 15 U/L (0-33) 08/13/21 15:00 Alkaline Phosphatase 97 IU/L (35-105) 08/13/21 15:00 Troponin T Baseline 15 ng/L (0-10) H 08/13/21 15:00 Troponin T 120 Minute 13.46 ng/L (0-10) H 08/13/21 16:56 Delta Troponin T -1.54 ABS# (0-10) L 08/13/21 16:56 Total Protein 6.7 g/dL (6.6-8.7) 08/13/21 15:00 Albumin 4.2 g/dL (3.5-5.2) 08/13/21 15:00 Globulin 2.5 g/dL (1.3-4.6) 08/13/21 15:00 A&P Assessment and plan (1) Cerebrovascular accident: Status: Acute Qualifiers: CVA mechanism: unspecified Qualified Code(s): I63.9 - Cerebral infarction, unspecified (2) Diabetes mellitus: Status: Acute Qualifiers: Diabetes mellitus complication status: with hyperglycemia Diabetes mellitus fci insulin use: with middle or intermediate school principal use Diabetes mellitus type: type 2 Qualified Code(s): E11.65 - Type 2 diabetes mellitus with hyperglycemia; 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 Recommendations of not to give TPA as patient is improving with NIH scale resolving. Aspirin 325 mg stat followed by 81 mg daily, Plavix 75 mg daily, statin [address] head, CTA head and neck results. MRI brain, echocardiogram. Check liver panel, A1c. Telemetry monitoring to rule out arrhythmia/A. fib. PT/OT/speech evaluation. Diet as per swallow evaluation. Every 4 neurochecks. Permissible hypertension. Goal blood pressure less than 180/100 mmHg. Hypertension: Permissive hypertension as above. Hold antihypertensives Will restart antihypertensives after 24 hours. Type 2 diabetes mellitus: Insulin sliding scale high-dose protocol. Continue Lantus at home dose. Lovenox for DVT prophylaxis. Cardiac carb consistent mechanical soft diet. Change as per swallow evaluation. Protonix for PUD prophylaxis. Case management consult for possible placement Attestations Medical Necessity Statement*: Less than 2 MN for CVA work up. 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
[2021-08-13 18:35] LABS: Iron 64 ug/dL (37-145); Percent Saturation 23.7 % (20-50); Thyroid Stimulating Hormone 6.06 uIU/mL (0.27-4.20); Total Iron Binding Capacity 269 mcg/dl; Unsaturated Iron Binding 205 ug/dL (112-347)
[2021-08-13 18:45] LABS: INR 0.97 (0.8-1.2)
[2021-08-13] MEDS: enoxaparin 40 mg/0.4 mL Syringe SUBCUT (19:10)
[2021-08-13] MEDS: duloxetine 20 mg Capsule PO (19:10)
[2021-08-13] MEDS: ferrous gluconate 324 mg Tablet PO (19:11)
[2021-08-13 19:30] LABS: Amphetamines Screen Urine Negative (Negative); Barbiturates Screen Urine Negative (Negative); Benzodiazepines Screen Urine Negative (Negative); Cocaine Screen Urine Negative (Negative); Opiate Screen Urine Negative (Negative); PCP Screen Urine Negative (Negative); THC Screen Urine Negative (Negative)
[2021-08-13 20:38] LABS: Glucose Point of Care 136 mg/dL (70-110)
[2021-08-13] MEDS: atorvastatin 40 mg Tablet 80 MG PO (20:45)
[2021-08-13 21:20] LABS: Add Urine Microscopic? YES; Bilirubin Urine Neg (Negative); Blood Urine Neg (Negative); Glucose Urine UA 4+ (Normal); Ketones Urine Negative (Negative); Leukocyte Esterase Urine Negative (Negative); Nitrate Urine Positive (Negative); Protein Urine Neg (Negative); Specific Gravity, Urine 1.005 (1.005-1.030); Urine Appearance Clear (CLEAR); Urine Color Yellow (Yellow); Urobilinogen Urine Norm (Negative); pH Urine 5 (5-7)
[2021-08-13 21:22] LABS: Add Urine Culture? Yes; Bacteria Urine 4+ /hpf; Squamous Epithelial Cell Urine 0-4 /hpf (0-5)
[2021-08-13 21:56] LABS: Troponin 5 6HR 14.82 ng/L (0-10)
[2021-08-13 22:10] LABS: Troponin 5 6HR Delta -0.18 ng/L (0-12)
[2021-08-13] MEDS: cefTRIAXone 1,000 MG in sodium chloride 0.9% (plus) 50 ML 100 MG IV (23:52)
[2021-08-14] VITALS (16 sets, daily range): BP systolic 138–178; BP diastolic 61–94; PULSE 65–81; RESP 15–26; TEMP 36.1–37; O2SAT 87–96
[2021-08-14] MEDS: sodium chloride 0.9% (100 ml) 100 ML (00:20)
[2021-08-14 03:36] LABS: Basophils # 0.1 10^3/uL (0.0-0.1); Basophils % 0.8 %; Eosinophils # 0.4 10^3/uL (0.0-0.8); Eosinophils % 4.8 %; Hematocrit 41.8 % (37.0-47.0); Hemoglobin 13.5 g/dL (11.5-15.3); Lymphocytes # 2.6 10^3/uL (0.8-4.8); Lymphocytes % 29.5 %; Mean Corpuscular HGB Conc 32.3 g/dL (30.0-36.0); Mean Corpuscular Hemoglobin 28.4 pg (28.0-34.0); Mean Corpuscular Volume 87.8 fl (81-99); Mean Platelet Volume 10.3 fL (7.4-10.4); Monocytes # 0.9 10^3/uL (0.2-0.9); Neutrophils # 4.72 10^3/uL (1.8-7.7); Neutrophils % 54.4 %; Nucleated Red Blood Cells % 0 %; Platelet Count 284 10^3/cmm (130-400); Red Blood Count 4.76 10^6/uL (4.1-5.3); Red Cell Distribution Width 14.2 % (12.1-15.1); White Blood Count 8.7 10^3/uL (4.0-10.0)
[2021-08-14 03:58] LABS: Estmated Average Glucose 183
[2021-08-14 04:10] LABS: Alanine Aminotransferase 12 U/L (0-33); Albumin Level 3.8 g/dL (3.5-5.2); Alkaline Phosphatase 81 IU/L (35-105); Anion Gap 12.5 (5-19); Aspartate Amino Transferase 12 U/L (0-32); Blood Urea Nitrogen 13 mg/dL (8-23); Calcium 9.1 mg/dL (8.5-10.5); Carbon Dioxide 29 mmol/L (22-29); Chloride 104 mmol/L (98-107); Chol HDL Ratio 3.02 mg/dL (0.0-4.40); Cholesterol 190 mg/dL (0-200); Globulin 2.4 g/dL (1.3-4.6); Glucose 147 mg/dL (65-115); HDL Cholesterol 63 mg/dL (60-100); LDL Cholesterol Calculated 103 mg/dL (50-129); Osmolality Calculated 297 mOsm/kg (285-295); Potassium 3.5 mmol/L (3.5-5.1); Sodium 142 mmol/L (136-145); Total Bilirubin 0.4 mg/dL (0.15-1.2); Total Protein 6.2 g/dL (6.6-8.7); Triglycerides 122 mg/dL (0-150); VLDL Cholestrol Calculation 24 mg/dL (0-30)
--- NOTE | 2021-08-14 06:00 | USCV_ITS ---
Shena Moreno Age: 81 Gender: F : 1940 Exam Date: 08/14/2021 06:12 Ordering Phys: Wilder Whitfield MD Technologist: Exam Location: [facility] [place] Indication: CVA BP: 156 / 81 HR: 67 Rhythm: Atrial fibrillation Technical Quality: Adequate MEASUREMENTS (Male / Female) Normal Values 2D ECHO LV Diastolic Diameter PLAX 3.2 cm 4.2 - 5.9 / 3.9 - 5.3 cm LV Systolic Diameter PLAX 2.1 cm IVS Diastolic Thickness 1.1 cm 0.6 - 1.0 / 0.6 - 0.9 cm IVS Systolic Thickness 1.7 cm LVPW Diastolic Thickness 1.1 cm 0.6 - 1.0 / 0.6 - 0.9 cm LVPW Systolic Thickness 1.2 cm LVOT Diameter 2.0 cm LV Ejection Fraction 2D Teich 64.7 % LV Ejection Fraction MOD 2C 44.3 % LV Ejection Fraction 2C AL 47.0 % LA Diameter 3.5 cm Aorta at Sinotubular Diameter 2.9 cm M-MODE Aortic Annulus Diameter 4.1 cm LA Ao Ratio MM 0.8 DOPPLER AV Peak Velocity 191.0 cm/s LVOT Peak Velocity 97.0 cm/s AV Area Cont Eq vti 1.6 cm squared AV Area Cont Eq pk 1.6 cm squared MV Area PHT 3.9 cm squared Mitral E to A Ratio 1.0 MV E' Velocity 60.0 cm/s Mitral E to MV E' Ratio 16.7 Mitral E to LV E' Lateral Ratio 13.5 Mitral E to LV E' Septal Ratio 22.4 TR Peak Velocity 195.0 cm/s TR Peak Gradient 15.2 mmHg TV Peak E Velocity 69.0 cm/s Right Atrial Pressure 3.0 mmHg Pulmonary Artery Systolic Pressu 18.2 mmHg PV Peak Velocity 103.0 cm/s FINDINGS Left Ventricle Normal left ventricular cavity size. Low normal left ventricular systolic function. Left ventricular ejection fraction is estimated at 50- 55 %. Although no diagnostic regional wall motion normality could be artifact, this possibility cannot be completely excluded based on the study. Grade II diastolic dysfunction, moderately elevated filling pressures. Right Ventricle Normal right ventricular size and systolic function. Right ventricular systolic pressure 18.2 mmHg. Right Atrium Normal right atrial size. Left Atrium Moderately increased left atrial size. Mitral Valve Moderate mitral annular calcification. Thickened mitral valve. No mitral valve stenosis. Trace mitral valve regurgitation. Aortic Valve Thickened and calcified trileaflet aortic valve. Mild aortic valve stenosis, mean gradient 7.3 mmHg, RERE 1.6 cm squared. No aortic valve regurgitation. Tricuspid Valve Structurally normal tricuspid valve. Trace tricuspid valve regurgitation. Pulmonic Valve Pulmonic valve not well visualized. Pericardium No pericardial effusion. Aorta Normal size aortic root and proximal ascending aorta. CONCLUSIONS 1. Normal left ventricular cavity size and low normal systolic function. Left ventricular ejection fraction is estimated at 50- 55 %. Although no diagnostic regional wall motion normality could be artifact, this possibility cannot be completely excluded based on the study. Grade II diastolic dysfunction, moderately elevated filling pressures. 2. Normal right ventricular size and systolic function. 3. Mild aortic valve stenosis, mean gradient 7.3 mmHg, RERE 1.6 cm squared. 4. No prior similar studies to compare. Day Whitley MD (Electronically Signed) Final Date: 14 August 2021 12:41 S
[2021-08-14 06:47] LABS: Glucose Point of Care 112 mg/dL (70-110)
[2021-08-14] MEDS: aspirin 81 mg EC Tablet PO (09:09)
[2021-08-14] MEDS: levothyroxine 75 mcg Tablet PO (09:09)
[2021-08-14] MEDS: ferrous gluconate 324 mg Tablet PO (09:09)
[2021-08-14] MEDS: acetaminophen 325 mg Tablet 650 MG PO (09:09)
[2021-08-14] MEDS: duloxetine 20 mg Capsule PO (09:09)
--- NOTE | 2021-08-14 09:13 | PC.CHAP ---
Pastoral Care Encounter/Spiritual Assessment Type of Contact [] Declined marketing sales representative visit [] Patient/Family/Request visit [] Outpatient visit [] Follow-up visit [] Physician referral [] Code/Alert [x] Routine visit [] Staff referral [] Actively dying [] Patient sleeping [x] Family support [] [] Out of room [] Palliative care [] [x] Receiving care in room [] Pre-surgical visit [] Trauma [] Long length of stay [] ICU visit [] Other: Relational/Emotional Strength [] Patient feels connected with others/family/visitors/staff [] Distress [] Loneliness/isolation [] Abandonment Spirituality of Patient [] Person of Marsha [] Attends Gnosticism of their Marsha [] Believes in Prayer [] Reads Bible or Yazdanism materials [] There are Spiritual issues to be addressed Floor Mechanic Interventions [x] Prayer [] Active listening [] Non-anxious presence [] Spiritual/emotional support [] Crisis/trauma care [] Spiritual counseling [] Bereavement support [] Provided bereavement packet [] Provided Bible/devotional materials [] Provided toy/stuffed animal, coloring book to patient or family member [] Provided Communion [] Anointing/[place] [] Salvation [x] Completed spiritual assessment [] Other: Impact on Illness or Injury [] Angry [] Fearful [] Anxious [] Often cries [] Exhaustion [] Unable to work [] Unable to attend bahai [] Unable to walk/stand [] Unable to read [] Unable to drive [] Unable to eat/drink [] Unable to sleep [] Unable to be with family [] Patient intubated [] Other: Summary Time spent with patient
--- NOTE | 2021-08-14 09:57 | PC.NURSE ---
Patient is resting in bed with visitors at bedside.
--- NOTE | 2021-08-14 10:15 | MR_ITS ---
WS: [id number] MRI HEAD WITH CONTRAST TECHNIQUE: Sagittal T1, T2 axial, T2 axial FLAIR, axial susceptibility weighted imaging, axial diffus ion weighted images, and coronal T2 images were obtained. Pre and post-T1 axial and post T1 coronal i mages. ADC and FSPGR images. CLINICAL INFORMATION: stroke COMPARISON: None. FINDINGS: Patchy areas of restricted diffusion involving the RIGHT frontoparietal junction extending into the R IGHT parietal cortex consistent with acute ischemia. Additional punctate foci of restricted diffusion involving the posterior RIGHT parietal lobe and RIGHT temporal lobe. Additional punctate focus of re stricted diffusion within the LEFT cerebellum. Ischemia within the RIGHT MCA and LEFT vertebral arter y territories. Consider embolic etiologies. Mild associated edema with the larger areas of ischemia at the RIGHT frontoparietal junction. No sign ificant mass effect or midline shift. No acute intracranial hemorrhage. No hemosiderin on susceptibly weighted images. Normal vascular flow voids at the skull base. No extra -axial fluid collections. Mild mucosal thickening in the paranasal sinuses with a small amount of flu id. Mastoid air cells well aerated. Moderate small vessel changes with mild parenchymal volume loss. Chronic lacunar infarct RIGHT basal ganglia. Moderate symmetric atrophy temporal lobes and hippocampal formations. Normal optic chiasm an d pituitary infundibulum. No abnormal gadolinium enhancement. Normal dural venous sinuses. MR/MR head wo/w con [id number] IMPRESSION: 1. Patchy restricted diffusion consistent with acute ischemia involving the RI GHT frontoparietal cortex, RIGHT parietal lobe, and RIGHT temporal lobe. Single additional punctate focus of acute ischemia in the LEFT cerebellum. Consider e mbolic infarcts. 2. Mild edema associated with the larger areas of acute ischemia in the RIGHT frontoparietal junction. No mass effect or midline shift. 3. No intracranial hemorrhage. 4. Moderate small vessel changes with moderate parenchymal volume loss. 5. No other acute findings. Notified Wilder Whitfield MD at 08/14/2021 11:59 AM.
[2021-08-14 11:50] LABS: NT Pro B Type Natriuretic Pept 321 pg/mL (0-450)
[2021-08-14 11:55] LABS: Glucose Point of Care 167 mg/dL (70-110)
[2021-08-14] MEDS: clopidogrel 75 mg Tablet PO (12:10)
[2021-08-14] MEDS: insulin lispro 100 unit/1 mL SUBCUT (12:10)
[2021-08-14] MEDS: predniSONE 20 mg Tablet 40 MG PO (12:11)
[2021-08-14 12:19] LABS: Free T4 Free Thyroxine 1.07 ng/dL (0.82-1.77); T3 Free 2.3 PG/ML (2.0-4.4)
--- NOTE | 2021-08-14 12:56 | PC.NURSE ---
SN Elsi gave patient PO morning meds under my supervision.
[2021-08-14] MEDS: FUROsemide 20 mg Tablet PO (13:44)
[2021-08-14 14:36] LABS: Adenovirus Not Detected (NOT DETECT); Chlamydia Pneumoniae Not Detected (NOT DETECT); Coronavirus 229E,HKU1,NL63,OC4 Not Detected (NOT DETECT); Human Metapneumovirus Not Detected (NOT DETECT); Human Rhinovirus/Enterovirus Not Detected (NOT DETECT); Influenza A Not Detected (NOT DETECT); Influenza A H1 Not Detected (NOT DETECT); Influenza A H1-2009 Not Detected (NOT DETECT); Influenza A H3 Not Detected (NOT DETECT); Influenza B Not Detected (NOT DETECT); Mycoplasma Pneumoniae Not Detected (NOT DETECT); Parainfluenza Virus Type 1 Not Detected (NOT DETECT); Parainfluenza Virus Type 2 Not Detected (NOT DETECT); Parainfluenza Virus Type 3 Not Detected (NOT DETECT); Parainfluenza Virus Type 4 Not Detected (NOT DETECT); Respiratory Syncytial Virus A Not Detected (NOT DETECT); Respiratory Syncytial Virus B Not Detected (NOT DETECT); SARS-COV-2 Not Detected (NOT DETECT)
--- NOTE | 2021-08-14 15:19 | P.DS_ITS ---
Discharge Providers Date of Admission: 08/13/21 17:35 Date of Discharge: August 14, 2021 Attending Provider at Admission: Wilder Whitfield MD Attending Provider at Discharge: Wilder Whitfield MD Primary Care Provider: Nuris Moran DO Diagnoses at Discharge Discharge Diagnosis (1) Embolic stroke: Status: Acute (2) Cerebrovascular accident: Status: Acute Qualifiers: CVA mechanism: unspecified Qualified Code(s): I63.9 - Cerebral infarcti on, unspecified (3) Afib: Status: Suspected (4) Hypoxia: Status: Acute (5) Diabetes mellitus: Status: Acute Qualifiers: Diabetes mellitus complication status: with hyperglycemia Diabetes mellitus fpc insulin use: with manager intermediate use Diabetes mellitus type: type 2 Qualified Code(s): E11.65 - Type 2 diabetes mellitus with hyperglycemia; 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 Shena Moreno is a 81 year old female with past medical history of hypertension, hypothyroidism, insulin-dependent type 2 diabetes mellitus, migraine headache who was brought into the ER via EMS today after history taken through the patient, patient had witnessed left upper and lower extremity weakness with expressive aphasia the started at 1420 today.? During the stay in the ER patient remained hemodynamically stable and continued to improve.? By the time I had seen the patient patient's weakness had improved and had minimal weakness in the left upper extremities.? Patient did have some PVCs on the shelter monitor. Patient has remote past history of smoking. She does state that she has significant exposure to secondhand smoke with her parents, ex- and brother. She complains of occasional difficulty in breathing more so when she lies down. Denies any chest pain on exertion. Denies any difficulty in breathing on exertion. Has never been diagnosed of sleep apnea. Complains of occasional wheezing. CT imaging ordered as below. Timeframe as per my review of the chart is as follows: 162: Nurse states pt passed dysphagia screen.? Awaiting tele-neuro consult. 1729:? Dr. Ornelas teleneurologist from [facility] examined the patient via telemedicine.? He stated the patient had NIH score or of 1 at the time of his exam.? He said there was mild ataxia in the left upper extremity.? He states the rest of the symptoms had resolved.? He does not right recommend thrombolytics.? He does recommend observation in the hospital.? Hospital Course Hospital Course Patient admitted to hospital further evaluation and management of stroke. She was evaluated by neurologist, PT and speech therapy. Patient did not have any further neurological complications during hospitalization. She remains on sinus rhythm on telemetry. MRI was done which was consistent with multiple acute infarcts consistent with the possibility of embolic stroke. During hospitalization patient was found to be mildly hypoxic overnight. Chest x-ray was done which was negative for consolidation. COVID-19 was ruled out. proBNP was within normal limits. Echocardiogram was done which showed a normal EF with grade 2 diastolic dysfunction. Hypoxia is believed to be secondary to undiagnosed diastolic heart failure and COPD given history of primary and secondary smoking exposure. She is discharged hemodynamically stable condition with advised to follow-up sustainable communities designer, broadcast program director and neurologist within next 2 weeks. She is being discharged with event monitor. Pulmonary function test has been ordered as an outpatient. She is advised to follow-up with a primary care provider within next 2 weeks for repeat BMP. She is to take Lasix and potassium every other day. She has been discharged on prednisone for 5 days for possibility of COPD exacerbation along with inhalation treatment with Advair and Spiriva. Physical Exam Narrative: General: No acute distress, AO x3 HEENT: PERRLA, pupils bilaterally equal and reactive Chest: Normal vesicular breath sounds, no added sounds, equal good air entry bilaterally CVS: S1-S2 regular, no murmurs, no tachycardia, no gallops, no rubs Abdomen: Soft, nontender, no organomegaly, bowel sounds present Neuro: patient oriented x3, CN's II-XII intact bilaterally, no focal motor defic its and no sensory deficits noted? SENSORIUM/ORIENTATION: Yes alert, Yes oriented to person and Yes oriented to time? MENINGEAL SIGNS: No meningeal signs? OTHER: Patient has minimal ataxia to the left upper extremity.? Patient has 4+ out of 5 strength in the left upper and lower extremity.? Patient states she has numbness in the left upper extremity.? She also has chronic numbness and tingling in both feet due to diabetic neuropathy.? She has minimal flattening of the nasolabial fold to the left side of the face with smile.? Speech is normal. Discharge Data Studies Completed and Pending Completed Studies During Hospitalization Category Date Time Status CT angio headneck* [id number] Stat Cat Scan 08/13/21 15:[address] head wo con* [id number] Urgent Cat Scan 08/13/21 15:16 Completed XR chest 1V portable [id number] Stat Exams 08/13/21 15:18 Completed MR head wo/w con [id number] Routine MRI 08/14/21 10:15 Completed CV. echo complete* [id number] Routine Ultrasound 08/14/21 06:00 Completed Radiology Impressions Head CT 08/13/21 15:16 IMPRESSION: No acute intracranial abnormality. ASSESSMENT: ASPECTS ([place] Stroke Program Early CT Score) is 10. Head/Neck CTA 08/13/21 15:17 IMPRESSION: No large vessel stenosis or occlusion. IMPRESSION: Mild stenosis at the origins of both internal carotid arteries. No significant stenosis or occlusion. REFERENCES: NASCET CRITERIA. The degree of internal carotid artery stenosis is based on NASCET criteria. Normal is no stenosis. Mild is less than 50% stenosis. Moderate is 50-69% stenosis. Severe is 70% to 99% stenosis. Total occlusion is no detectable patent lumen. Chest X-Ray 08/13/21 15:18 IMPRESSION: Mild cardiomegaly. No acute findings. Head MRI 08/14/21 10:15 IMPRESSION: 1. Patchy restricted diffusion consistent with acute ischemia involving the RIGHT frontoparietal cortex, RIGHT parietal lobe, and RIGHT temporal lobe. Single additional punctate focus of acute ischemia in the LEFT cerebellum. Consider embolic infarcts. 2. Mild edema associated with the larger areas of acute ischemia in the RIGHT frontoparietal junction. No mass effect or midline shift. 3. No intracranial hemorrhage. 4. Moderate small vessel changes with moderate parenchymal volume loss. 5. No other acute findings. Notified Wilder Whitfield MD at 08/14/2021 11:59 AM. Echocardiogram: CONCLUSIONS ?1. Normal left ventricular cavity size and low normal systolic?function. Left ventricular ejection fraction is estimated at 50-?55 %.? Although no diagnostic regional wall motion normality?could be artifact, this possibility cannot be completely?excluded based on the study.? Grade II diastolic dysfunction,?moderately elevated filling pressures. ?2. Normal right ventricular size and systolic function. ?3. Mild aortic valve stenosis, mean gradient 7.3 mmHg, RERE 1.6?cm squared. ?4. No prior similar studies to compare. ?Day Whitley MD ?(Electronically Signed) ?Final Date:? ? ? 14 August 2021 ? 12:41 Laboratory Results WBC 8.7 10^3/uL (4.0-10.0) 08/14/21 02:37 RBC 4.76 10^6/uL (4.1-5.3) 08/14/21 02:37 Hgb 13.5 g/dL (11.5-15.3) 08/14/21 02:37 Hct 41.8 % (37.0-47.0) 08/14/21 02:37 MCV 87.8 fl (81-99) 08/14/21 02:37 MCH 28.4 pg (28.0-34.0) 08/14/21 02:37 MCHC 32.3 g/dL (30.0-36.0) 08/14/21 02:37 RDW 14.2 % (12.1-15.1) 08/14/21 02:37 Plt Count 284 10^3/cmm (130-400) 08/14/21 02:37 MPV 10.3 fL (7.4-10.4) 08/14/21 02:37 Neut % (Auto) 54.4 % 08/14/21 02:37 Lymph % (Auto) 29.5 % 08/14/21 02:37 [place] % (Auto) 10.0 % 08/14/21 02:37 Eos % (Auto) 4.8 % 08/14/21 02:37 Baso % (Auto) 0.8 % 08/14/21 02:37 Neut # (Auto) 4.72 10^3/uL (1.8-7.7) 08/14/21 02:37 Lymph # (Auto) 2.6 10^3/uL (0.8-4.8) 08/14/21 02:37 [place] # (Auto) 0.9 10^3/uL (0.2-0.9) 08/14/21 02:37 Eos # (Auto) 0.4 10^3/uL (0.0-0.8) 08/14/21 02:37 Baso # (Auto) 0.1 10^3/uL (0.0-0.1) 08/14/21 02:37 Nucleated RBC % (auto) 0 % 08/14/21 02:37 Nucleated RBCs # 0.0 /100WBC 08/14/21 02:37 PT 13.10 SECONDS (12.1-14.9) 08/13/21 18:29 INR 0.97 (0.8-1.2) 08/13/21 18:29 APTT 27.4 SECONDS (23.9-36.7) 08/13/21 15:00 Sodium 142 mmol/L (136-145) 08/14/21 02:37 Potassium 3.5 mmol/L (3.5-5.1) 08/14/21 02:37 Chloride 104 mmol/L (98-107) 08/14/21 02:37 Carbon Dioxide 29 mmol/L (22-29) 08/14/21 02:37 Anion Gap 12.5 (5-19) 08/14/21 02:37 BUN 13 mg/dL (8-23) 08/14/21 02:37 Creatinine 0.5 mg/dL (0.5-0.9) 08/14/21 02:37 GFR Calculation Not Reportable 08/14/21 02:37 Glucose 147 mg/dL (65-115) H 08/14/21 02:37 POC Glucose 167 mg/dL (70-110) H 08/14/21 11:42 Estimat Average Glucose 183 08/14/21 02:37 Hemoglobin A1c 8.0 % (4.0-6.0) H 08/14/21 02:37 Calculated Osmolality 297 mOsm/kg (285-295) H 08/14/21 02:37 Calcium 9.1 mg/dL (8.5-10.5) 08/14/21 02:37 Magnesium 1.7 mg/dL (1.7-2.3) 08/13/21 15:00 Iron 64 ug/dL (37-145) 08/13/21 16:56 TIBC 269 mcg/dl 08/13/21 16:56 % Saturation 23.7 % (20-50) 08/13/21 16:56 Unsat Iron Binding 205 ug/dL (112-347) 08/13/21 16:56 Total Bilirubin 0.4 mg/dL (0.15-1.2) 08/14/21 02:37 AST 12 U/L (0-32) 08/14/21 02:37 ALT 12 U/L (0-33) 08/14/21 02:37 Alkaline Phosphatase 81 IU/L (35-105) 08/14/21 02:37 Troponin T Baseline 15 ng/L (0-10) H 08/13/21 15:00 Troponin T 120 Minute 13.46 ng/L (0-10) H 08/13/21 16:56 Delta Troponin T -1.54 ABS# (0-10) L 08/13/21 16:56 Troponin T Hi Sens 6Hr 14.82 ng/L (0-10) H 08/13/21 21:05 Troponin T Hi Sens 6Hr Delta -0.18 ng/L (0-12) L 08/13/21 21:05 NT-Pro-B Natriuret Pep 321 pg/mL (0-450) 08/14/21 02:37 Total Protein 6.2 g/dL (6.6-8.7) L 08/14/21 02:37 Albumin 3.8 g/dL (3.5-5.2) 08/14/21 02:37 Globulin 2.4 g/dL (1.3-4.6) 08/14/21 02:37 Triglycerides 122 mg/dL (0-150) 08/14/21 02:37 Cholesterol 190 mg/dL (0-200) 08/14/21 02:37 LDL Cholesterol, Calc 103 mg/dL (50-129) 08/14/21 02:37 Total VLDL Cholesterol 24 mg/dL (0-30) 08/14/21 02:37 HDL Cholesterol 63 mg/dL (60-100) 08/14/21 02:37 Cholesterol/HDL Ratio 3.02 mg/dL (0.0-4.40) 08/14/21 02:37 TSH 6.06 uIU/mL (0.27-4.20) H 08/13/21 16:56 Free T4 1.07 ng/dL (0.82-1.77) 08/14/21 02:37 Free T3 2.3 PG/ML (2.0-4.4) 08/14/21 02:37 Urine Color Yellow (Yellow) 08/13/21 19:15 Urine Appearance Clear (CLEAR) 08/13/21 19:15 Urine pH 5 (5-7) 08/13/21 19:15 Ur Specific [place] 1.005 (1.005-1.030) 08/13/21 19:15 Urine Protein Neg (Negative) 08/13/21 19:15 Urine Glucose (UA) 4+ (Normal) H 08/13/21 19:15 Urine Ketones Negative (Negative) 08/13/21 19:15 Urine Blood Neg (Negative) 08/13/21 19:15 Urine Nitrate Positive (Negative) H 08/13/21 19:15 Urine Bilirubin Neg (Negative) 08/13/21 19:15 Urine Urobilinogen Norm mg/dL (Negative) 08/13/21 19:15 Ur Leukocyte Esterase Negative (Negative) 08/13/21 19:15 Urine RBC 5-10 /hpf (0-2) H 08/13/21 19:15 Urine WBC 5-10 /hpf (0-5) H 08/13/21 19:15 Ur Squamous Epith Cells 0-4 /hpf (0-5) H 08/13/21 19:15 Amorphous Sediment Not Reportable 08/13/21 19:15 Urine Bacteria 4+ /hpf (NONE) H 08/13/21 19:15 Urine Yeast Trace /hpf 08/13/21 19:15 Urine Opiates Screen Negative ng/mL (Negative) 08/13/21 19:15 Ur Barbiturates Screen Negative ng/mL (Negative) 08/13/21 19:15 Ur Phencyclidine Scrn Negative ng/mL (Negative) 08/13/21 19:15 Ur Amphetamines Screen Negative ng/mL (Negative) 08/13/21 19:15 U Benzodiazepines Scrn Negative ng/mL (Negative) 08/13/21 19:15 Urine Cocaine Screen Negative ng/mL (Negative) 08/13/21 19:15 U Marijuana (THC) Screen Negative ng/mL (Negative) 02/20/22 19:15 Coronavirus 229E (PCR) Not detected (NOT DETECT) 08/14/21 12:05 SARS-CoV-2 (PCR) Not detected (NOT DETECT) 08/14/21 12:05 Vitals Last Vital Signs Temp 98.0 F 08/14/21 07:05 Pulse 79 08/14/21 14:00 Resp 19 H 08/14/21 14:00 BP 163/94 08/14/21 14:00 Pulse Ox 95 08/14/21 10:01 Discharge Plan Discharge Patient Disposition: Home Health Service Condition: Stable Prescriptions: New levothyroxine 75 mcg Tablet 75 mcg PO DAILY 30 Days Qty: 30 0RF Plavix 75 mg tablet 75 mg PO DAILY Qty: 90 0RF Xarelto 20 mg tablet 20 mg PO DAILY Qty: 90 0RF Rx Instructions: must administer with evening meal atorvastatin 40 mg tablet 40 mg PO DAILY Qty: 90 0RF Advair Diskus 250-50 mcg/dose Blister With Device 1 puff inhalation BID.RESPIRATORY Qty: 60 0RF prednisone 20 mg Tablet 40 mg PO DAILY Qty: 5 0RF Lasix 20 mg tablet 20 mg PO Q48H Qty: 30 0RF potassium chloride 10 mEq capsule, extended release 10 meq PO Q48H Qty: 30 0RF Rx Instructions: On the days of lasix Continued (DME) OneTouch Ultra Blue Test Strip Strip See Rx Instructions .ROUTE .MEDSUPPLY Qty: 10 0RF Rx Instructions: As directed (DME) pen needle, diabetic [Comfort EZ Pen [place]] 31 gauge x 5/16 needle See Rx Instructions .ROUTE .MEDSUPPLY Qty: 30 0RF Rx Instructions: As directed pantoprazole 20 mg tablet,delayed release (DR/EC) 20 mg PO DAILY 0RF albuterol sulfate [Proventil HFA] 90 mcg/actuation HFA aerosol inhaler 2 puff INHALATION Q4H PRN (Reason: Shortness Of Breath) 0RF Farxiga 10 mg tablet 10 mg PO QAM 0RF polyethylene glycol 3350 [Miralax] 17 gram/dose powder 17 gm PO DAILY PRN (Reason: Constipation) 0RF cholecalciferol (vitamin D3) 5,000 unit capsule 5,000 unit PO .COMPLEX 0RF Rx Instructions: 5,000 units PO 1 cap on the and of each month; losartan [Cozaar] 25 mg tablet 25 mg PO DAILY 0RF fluticasone propionate 50 mcg/actuation spray,suspension 2 spray INTRANASAL QDAY 0RF cetirizine [All Day Allergy (cetirizine)] 10 mg tablet 10 mg PO DAILY 0RF (DME) Systane Contacts Drops See Rx Instructions .ROUTE .MEDSUPPLY Qty: 12 0RF Rx Instructions: As directed hydroxyzine HCl 25 mg tablet 25 mg PO ONCE PRN (Reason: anxiety) Qty: 30 2RF duloxetine 30 mg capsule,delayed release(DR/EC) 30 mg PO BEDTIME 0RF Ozempic 0.25 mg or 0.5 mg(2 mg/1.5 mL) Pen Injector 0.5 mg SUBCUT Q7D 0RF Rx Instructions: ON SUNDAYS Toujeo Max U-300 SoloStar 300 unit/mL (3 mL) insulin pen 36 unit SUBCUT QDAY 0RF Changed Toujeo Max U-300 SoloStar 300 unit/mL (3 mL) insulin pen 40 unit SUBCUT QDAY Qty: 0 0RF Discontinued levothyroxine 50 mcg tablet 50 mcg PO DAILY 0RF atorvastatin 10 mg tablet 10 mg PO DAILY 0RF Discharge Orders: Discharge Order (Routine); Ordered 08/14/21 Ordered By: Wilder Whitfield Other Ambulatory Orders: MCT/Event Monitor 21 Days (Routine) Timeframe: 1 Week Facility: [facility] - Location: Radiology Ordered By: Wilder Whitfield Pulmonary Function Screen with Bronchodilator (Routine) Timeframe: 1 Week Facility: [facility] - Location: Respiratory Therapy Ordered By: Wilder Whitfield Referrals: [facility] [Outside] [facility] [Outside] Maribel Pringle MD [Physician] - 2 weeks JenniferrCb MD [Physician] - 2 weeks (SOB, possible COPD, chronic primary and secondary smoking exposure) Omar Michael MD [Physician] - 2 weeks Day Whitley MD [Physician] - 1 month (embolic stroke, cardiac event monitor, possible afib) Discharge Diet: Cardiac and Diabetic Discharge Activity: Resume usual activity and Increase activity as tolerated Patient Instructions: Diabetes and Diet, Self Care Measures After a Stroke (DC), Diabetic Hyperglycemia (DC), Opioid Safety Activity Restrictions/Additional Instructions: Please follow-up with the specialists including broadcast program director, sustainable communities designer and neurologist within next 2 weeks in 1 month onset appointment. Please get event monitor check in 3 weeks. Please get pulmonary function test done in 1 week before you follow-up with your broadcast program director. Xarelto is a blood thinner which he should be on going forward. Please check BMP in next 1 week. Take Lasix 20 mg every other day. On the day of Lasix also take 10 mEq of potassium. Discharge Attestations Time Spent in Discharge Care*: greater than 30 min Specific Discharge Activities: educating patient, educating and/or supporting family/caregiver, discussing with pcp/other providers, discussing with briefcase sewer/social workers/dc planners, documenting/other paperwork and evaluating patient/reviewing data Status at Discharge: Cognitive status at discharge: cognitively intact , Behavioral status at discharge: cooperative , Functional status at discharge: independent ambulation , Overall status at discharge: patient is progressing back to baseline Quality Metrics Clinical Quality Measures [ Cerebrovascular Accident { Contraindication to Antithrombotic: None; antithrombotic prescribed; Contraindication to Anticoagulation: None; anticoagulation prescribed; Contraindication to Statin: None; Statin prescribed; Contraindication to tPA: Treatment not indicated;}] Coding Level of Care Code Acute g FW VT note History Comprehensive Exam Comprehensive Medical Decision Making High Complexity Diagnoses Cerebrovascular accident I63.9 CVA mechanism: unspecified Diabetes mellitus E11.65; Z79.4 Diabetes mellitus complication status: with hyperglycemia Diabetes mellitus fpc insulin use: with fpc use Diabetes mellitus type: type 2 Hypertension, benign I10 Hypothyroidism E03.9 Embolic stroke I63.9 Afib I48.91 Hypoxia R09.02 Diastolic heart failure I50.30 COPD (chronic obstructive pulmonary disease) J44.9
--- NOTE | 2021-08-14 17:21 | PC.NURSE ---
Discharge Note Patient discharged to home via private vehicle accompanied by family. Discharge instructions and patient education reviewed with patient and family. Mobile pharmacy medications and/or prescriptions provided. Patient and family member verbalized understanding of all teaching. All lines removed. Belongings/home medications returned.
== END 2021-08-14 17:48 | disposition home health service (06) ==
LOC: ER 17:37 → CSU 18:21
PROVIDERS: Admitting Provider Student in an Organized Health Care Education/Training Program; Emergency Provider Family Medicine; PCP Family Medicine; Visit Provider Student in an Organized Health Care Education/Training Program
DX: I63.9 Cerebral infarction, unspecified (principal); R29.701 NIHSS score 1; E11.65 Type 2 diabetes mellitus with hyperglycemia; Z79.4 Long term (current) use of insulin; E03.9 Hypothyroidism, unspecified; I48.91 Unspecified atrial fibrillation; R09.02 Hypoxemia; I11.0 Hypertensive heart disease with heart failure; I50.30 Unspecified diastolic (congestive) heart failure; J44.9 Chronic obstructive pulmonary disease, unspecified; M79.10 Myalgia, unspecified site; M19.90 Unspecified osteoarthritis, unspecified site; I44.0 Atrioventricular block, first degree
CPT/HCPCS: 36415; 36416; 70450; 70496; 70498; 70553; 71045; 80053; 80061; 80306; 81001; 82962; 83036; 83540; 83550; 83735; 83880; 84439; 84443; 84481; 84484; 85025; 85610; 85730; 87635; 92523; 92610; 93005; 93306; 94664; 96365; 96372; 97110; 97116; 97161; 97165; 99285; G0378; J0696; J1650; J1815; J7512; Q9967

== ENCOUNTER → 2021-08-23 10:46 | Outpatient (BNVA) | payer MEDICARE, SELFPAY | PROVIDERS: PCP Family Medicine; Visit Provider Internal Medicine Cardiovascular Disease | DX: I48.91 Unspecified atrial fibrillation (principal) ==

== ENCOUNTER → 2021-08-30 08:17 | Outpatient (BNVA) | payer MEDICARE, OTHER, SELFPAY | PROVIDERS: PCP Family Medicine; Referring Provider Student in an Organized Health Care Education/Training Program; Visit Provider Specialist | DX: I50.30 Unspecified diastolic (congestive) heart failure (principal); J44.9 Chronic obstructive pulmonary disease, unspecified; I10 Essential (primary) hypertension; Z86.73 Personal history of transient ischemic attack (TIA), and cerebral infarction without residual deficits; G47.10 Hypersomnia, unspecified; E11.9 Type 2 diabetes mellitus without complications; Z79.4 Long term (current) use of insulin | CPT/HCPCS: 99205 ==

== ENCOUNTER → 2021-09-04 10:54 | Outpatient (BNVA) | payer MEDICARE, SELFPAY | PROVIDERS: PCP Family Medicine; Visit Provider Internal Medicine Pulmonary Disease | DX: J44.9 Chronic obstructive pulmonary disease, unspecified (principal); M25.641 Stiffness of right hand, not elsewhere classified; M25.642 Stiffness of left hand, not elsewhere classified; R09.02 Hypoxemia; Z87.891 Personal history of nicotine dependence; E11.9 Type 2 diabetes mellitus without complications; I10 Essential (primary) hypertension; E03.9 Hypothyroidism, unspecified; Z79.4 Long term (current) use of insulin; F41.9 Anxiety disorder, unspecified | CPT/HCPCS: 85651; 86038; 86140; 86200; 86225; 86235; 86431; 99204 ==

== ENCOUNTER → 2021-10-12 09:55 | Outpatient (BNVA) | payer MEDICARE, OTHER, SELFPAY | PROVIDERS: PCP Family Medicine; Visit Provider Internal Medicine Cardiovascular Disease | DX: I63.9 Cerebral infarction, unspecified (principal); R06.00 Dyspnea, unspecified; I11.0 Hypertensive heart disease with heart failure; I50.30 Unspecified diastolic (congestive) heart failure; E03.9 Hypothyroidism, unspecified; J44.9 Chronic obstructive pulmonary disease, unspecified; Z87.891 Personal history of nicotine dependence | CPT/HCPCS: 99204 ==

== ENCOUNTER 2021-10-19 14:19 | Outpatient (CLI) | payer MEDICARE, OTHER, SELFPAY ==
--- NOTE | 2021-10-19 14:33 | XR_ITS ---
WS: [id number] CHEST 2 VIEWS HISTORY: COUGH COMPARISON: 08/13/2021 Lungs: Mild interstitial thickening in the mid and lower lung stiles. Hyperexpanded lungs with flatte dylan diaphragms. No focal area of dense consolidation. The opacifications have increased since the ricki or study. Cardiac size: Normal. Mediastinum/Aorta: Mild atherosclerosis aorta. Bones: Osteopenia. XR/XR chest 2V* [id number] IMPRESSION: 1. Prominent interstitial markings in the lower lung stiles. Findings most con sistent with mild pneumonitis. 2. Chronic emphysema.
== END 2021-10-19 14:20 | disposition home or self-care (01) ==
LOC: RAD 14:24
PROVIDERS: PCP Family Medicine; Visit Provider Family Medicine
DX: R05.9 Cough, unspecified (principal); J18.9 Pneumonia, unspecified organism; J43.9 Emphysema, unspecified; I70.0 Atherosclerosis of aorta; M85.80 Other specified disorders of bone density and structure, unspecified site
CPT/HCPCS: 71046

== ENCOUNTER 2021-11-13 11:01 | Outpatient (CLI) | payer MEDICARE, OTHER, SELFPAY ==
--- NOTE | 2021-11-13 11:20 | XR_ITS ---
WS: [id number] RIGHT ANKLE: 3 VIEW(S) TECHNIQUE: AP, oblique(s) and lateral. HISTORY: PAIN IN R ANKLE JOINTS OF R FOOT COMPARISON: 11/22/2020. Osteopenia. Joint space narrowing at the ankle. No fractures or dislocation. No osteochondral lesion. No joint effusion. Mild soft tissue edema along the medial malleolus. Moderate degenerative changes noted at the midfoot. Hypertrophic osteophytes extend to the dorsal yaquelin face of the foot. Moderate size calcaneal spur. Scattered vascular calcifications. XR/XR ankle RT min 3V* [id number] IMPRESSION: 1. No acute fracture. 2. Soft tissue edema medially. 3. 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
== END 2021-11-13 11:02 | disposition home or self-care (01) ==
PROVIDERS: PCP Family Medicine; Visit Provider Family Medicine
DX: M25.571 Pain in right ankle and joints of right foot (principal); M19.071 Primary osteoarthritis, right ankle and foot; M77.31 Calcaneal spur, right foot
CPT/HCPCS: 73610

== ENCOUNTER → 2021-11-21 15:08 | Outpatient (BNVA) | payer MEDICARE, SELFPAY | PROVIDERS: PCP Family Medicine; Visit Provider Internal Medicine Pulmonary Disease | DX: J44.9 Chronic obstructive pulmonary disease, unspecified (principal); M25.641 Stiffness of right hand, not elsewhere classified; M25.642 Stiffness of left hand, not elsewhere classified; R06.00 Dyspnea, unspecified; R09.02 Hypoxemia; E11.8 Type 2 diabetes mellitus with unspecified complications; I10 Essential (primary) hypertension | CPT/HCPCS: 99214 ==

== ENCOUNTER 2021-11-29 07:45 | Outpatient (CLI) | payer MEDICARE, SELFPAY ==
--- NOTE | 2021-11-29 14:18 | PFTS_ITS ---
Date of Study:11/29/21 Date of Dictation: MECHANICS: Forced vital capacity (FVC) is reduced. Forced expiratory volume in one second (FEV1) is normal. FEV1/FVC is normal. FLOW VOLUME LOOP: Narrow. LUNG VOLUMES: Not measured DIFFUSING CAPACITY FOR CARBON MONOXIDE: Mild reduced. INTERPRETATION: The prebronchodilator spirometry is consistent with mild restriction. No postbronchodilator spirometry was performed. Lung volumes are not measured due to claustrophobia. Gas exchange (DLCO) is mildly reduced. MTDD
== END 2021-11-29 07:46 | disposition home or self-care (01) ==
LOC: RT 07:46
PROVIDERS: PCP Family Medicine; Visit Provider Internal Medicine Pulmonary Disease
DX: J44.9 Chronic obstructive pulmonary disease, unspecified (principal); R06.00 Dyspnea, unspecified; R09.02 Hypoxemia
CPT/HCPCS: 94010; 94729

== ENCOUNTER → 2021-12-04 15:01 | Outpatient (BNVA) | payer MEDICARE, OTHER, SELFPAY | PROVIDERS: PCP Family Medicine; Visit Provider Specialist | DX: I48.91 Unspecified atrial fibrillation (principal); Z79.01 Long term (current) use of anticoagulants; Z86.73 Personal history of transient ischemic attack (TIA), and cerebral infarction without residual deficits; Z87.891 Personal history of nicotine dependence | CPT/HCPCS: 99214 ==

== ENCOUNTER → 2022-01-18 09:59 | Outpatient (BNVA) | payer MEDICARE, OTHER, SELFPAY | PROVIDERS: PCP Family Medicine; Visit Provider Internal Medicine Cardiovascular Disease | DX: R06.00 Dyspnea, unspecified (principal); Z86.73 Personal history of transient ischemic attack (TIA), and cerebral infarction without residual deficits; I11.0 Hypertensive heart disease with heart failure; I50.32 Chronic diastolic (congestive) heart failure | CPT/HCPCS: 99214 ==

== ENCOUNTER → 2022-06-22 10:25 | Outpatient (BNVA) | payer MEDICARE, OTHER, SELFPAY | PROVIDERS: PCP Family Medicine; Visit Provider Internal Medicine Cardiovascular Disease | DX: R06.00 Dyspnea, unspecified (principal); I11.0 Hypertensive heart disease with heart failure; I50.30 Unspecified diastolic (congestive) heart failure; E03.9 Hypothyroidism, unspecified; J44.9 Chronic obstructive pulmonary disease, unspecified; Z86.73 Personal history of transient ischemic attack (TIA), and cerebral infarction without residual deficits; Z87.891 Personal history of nicotine dependence | CPT/HCPCS: 99214 ==

== ENCOUNTER 2022-08-05 23:00 | Emergency (ER) | payer MEDICARE, OTHER, SELFPAY ==
[2022-08-05 23:00] VITALS: BP 151/127; PULSE 80; RESP 20; TEMP 36.8; O2SAT 93; BMI 34.0
--- NOTE | 2022-08-05 23:04 | CTR_ITS ---
PROCEDURE INFORMATION: Exam: CT Head Without Contrast Exam date and time: 08/05/2022 11:03 PM Age: 81 years old Clinical indication: Stroke-like symptoms; Lt upper extremity weakness; Additional info: L sided weakness TECHNIQUE: Imaging protocol: Computed tomography of the head without contrast. Radiation optimization: All CT scans at this facility use at least one of these dose optimization techniques: automated exposure control; mA and/or kV adjustment per patient size (includes targeted exams where dose is matched to clinical indication); or iterative reconstruction. Other protocol: This patient has received 2 known CTs and 0 known cardiac nuclear medicine studies in the 12 months prior to the current study. Other technique: STROKE PROTOCOL was implemented. COMPARISON: MR head wo/w con [id number] 08/14/2021 10:34 AM RADIATION DOSE METRICS: Total DLP (mGy-cm): 1165.28 FINDINGS: Brain: Chronic right frontoparietal encephalomalacia is unchanged. No acute infarct. No hemorrhage. Involutional changes of the brain, commensurate with age. No mass effect. Cerebral ventricles: No ventriculomegaly. Paranasal sinuses: Mild left maxillary sinus mucosal thickening with air-fluid level. Mastoid air cells: Visualized mastoid air cells are well aerated. Bones/joints: Unremarkable. No acute fracture. Soft tissues: Unremarkable. CT/CT head thrombolytic [id number] IMPRESSION: 1. No acute intracranial abnormality. 2. Possible acute left maxillary sinusitis changes. ASSESSMENT: ASPECTS ([place] Stroke Program Early CT Score) is 10.
[2022-08-05 23:06] LABS: Glucose Point of Care 89 mg/dL (70-110)
[2022-08-05 23:13] VITALS: BP 151/127; BP 176/80; PULSE 81; RESP 19; O2SAT 94
--- NOTE | 2022-08-05 23:15 | ECG_ITS ---
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 Measurements Intervals [place] Rate: 78 P: 63 TN: 263 QRS: 33 QRSD: 98 T: 72 QT: 385 QTc: 439 Interpretive Statements SINUS RHYTHM WITH FIRST DEGREE AV BLOCK WITH OCCASIONAL VENTRICULAR PREMATURE COMPLEXES MINIMAL ST DEPRESSION [0.025+ mV ST DEPRESSION] Compared to ECG 08/13/2021 15:41:06 ST (T wave) deviation now present Prolonged QT interval no longer present Electronically Signed On 08-06-2022 8:52:12 ART CRITIC by Roland Colunga M.D. [id number]
--- NOTE | 2022-08-05 23:26 | W.ED.NEUROSD ---
HPI - Neuro Symptoms/Deficit General: Chief Complaint: Neuro Symptoms/Deficit Stated Complaint: possible stroke Time Seen by Provider: 08/05/22 23:01 Source: patient and EMS History of Present Illness: 81-year-old female who evidently was in her normal state of health until around 10 PM. She was at home and awake. She developed a coarse left-sided upper extremity tremor at that point, and could not understand why she was striking herself. She also developed paresthesias to the left upper and lower extremity. No vision, language, or speech problems. No other weakness. She has a history of prior stroke, and atrial fibrillation. She is on Xarelto. Onset (ago): minute(s) Last Observed Normal: 22:00 Timing confirmed by: family member Location: left arm and left leg History of same: No Severity: mild Quality: weak, numb and other Relieving factors: none Exacerbating factors: none Associated symptoms: Reports headache(s); Deny chest pain, cough, diaphoresis, fevers/chills, nausea, seizures, vertigo or vomiting Treatments Prior to Arrival: none Review of Systems Const: Denies: diaphoresis Eyes: Denies: change in vision or blurry vision ENMT: Denies: throat pain Card: Denies: chest pain Resp: Denies: dyspnea GI: Denies: abdominal pain, nausea or vomiting Neuro: Reports: headache(s), numbness in extremities and lack of coordination; Denies: vertigo Psych: Reports: anxiety PFS ED PFSH: Medical History Anxiety Bile reflux esophagitis Diabetes mellitus Diabetes mellitus type 2 in obese Diastolic heart failure DJD (degenerative joint disease) Embolic stroke Hypertension, benign Hypothyroidism Insulin long-term use Myalgia Family History Father Heart disease Diabetes Brother Heart disease Diabetes Mother Heart disease Social History Smoking and tobacco status: former smoker Quit status (tobacco): has quit using tobacco Year quit tobacco: 62 years ago Former quit date comment: 1ppd x 3 years Second hand smoke exposure: Yes (parents and spouse ) NIH stroke score NIHSS: Level Of Consciousness - 1a: 0 Level Of Consciousness Questions - 1b: Both Correct Level Of Consciousness Commands - 1c: Both Correct Best Gaze - 2: Normal Visual Keyes - 3: No Visual Loss Facial Palsy - 4: Normal Motor Arm Right - 5: No Drift Motor Arm Left - 5: No Drift Motor Leg Right - 6: No Drift Motor Leg Left - 6: No Drift Limb Ataxia - 7: Present In One Limb Sensory - 8: Mild To Moderate Loss Best Language - 9: No Aphasia Dysarthia - 10: Normal Extinction And Inattention - 11: 0 Score: Total Score: 2 Physical Exam Const: GENERAL APPEARANCE: cooperative and frail appearing (Mildly) HENMT: COMMON NORMALS: normocephalic, atraumatic and Normal external nose present HEAD & SCALP: normocephalic and atraumatic FACE & SINUS: normal facial exam and face symmetric NOSE: Normal external nose present Eye: COMMON NORMALS: Equal, round and reactive pupils present and EOMs intact bilaterally PUPIL: Yes Equal, round and reactive pupils present Neck/C-Spine: GENERAL: Yes trachea midline Chest: CHEST: Yes Symmetrical chest wall rise Resp: COMMON NORMALS: clear to auscultation bilaterally AUSCULTATION: clear to auscultation bilaterally Cardio: COMMON NORMALS: regular rate and regular rhythm RATE: regular rate RHYTHM: regular rhythm GI: COMMON NORMALS: Normal to inspection, nondistended, normoactive bowel sounds present and Soft to palpation PALPATION: Yes Soft to palpation Neuro: DIDI COMA SCALE: document GCS findings [place] coma scale eye opening: Spontaneous [place] coma scale verbal response: Orientated [place] coma scale motor response: Obey commands Didi coma scale total score: 15 CRANIAL NERVES: Yes CN normal except as noted COORDINATION/BALANCE: No [id number] test normal and [id number]-he-[id number] test normal SPEECH: speech normal SENSORY EXAM: Yes extremities (Significant decreased left upper and lower) COORDINATION: [id number]-[id number] test abnormal and ymng-kr-awrd test normal Psych: COMMON NORMALS: mental status grossly normal, cooperative, normal affect and speech normal SPEECH: Yes normal speech Course Consultations: Consultation #1: Yary Time: 23:17 Vital Signs: Vital signs: Vital Signs Temperature 98.3 F 08/05/22 23:00 Pulse Rate 81 08/05/22 23:13 Respiratory Rate 19 H 08/05/22 23:13 Blood Pressure 151/127 08/05/22 23:13 Pulse Oximetry 94 08/05/22 23:13 Oxygen Delivery Me thod 08/05/22 23:13 MDM - Neuro Symptoms/Deficit Medical Decision Making Spoke with neurology on this patient's arrival, after her NIH score was determined. Score is 2. She is anticoagulated. She is therefore not a tPA candidate. Head CT was negative she has been mildly hypertensive here. The coarse tremor to the left upper extremity is resolved. Sensation is improved to the left upper and lower extremity as well. She developed no new symptoms here. She has walked with her walker and was able to tolerate this. She is essentially at baseline at this point. Urinalysis is negative. CBC is not remarkable. BMP is not remarkable. Creatinine is 0.4. She had complained of a headache since arrival. She is given Toradol for this. She will be allowed discharge home. To return for new or worsening symptoms. Lab Data 08/05/22 23:20 08/05/22 23:[address] 08/05/22 23:04 IMPRESSION: 1. No acute intracranial abnormality. 2. Possible acute left maxillary sinusitis changes. ASSESSMENT: ASPECTS ([place] Stroke Program Early CT Score) is 10. ADDENDUM: 08/05/224 Findings were discussed with DESMOND Lynn at 08/05/2022 11:23 PM ELECTRONEURODIAGNOSTIC TECHNICIAN. Laboratory Results WBC 9.2 10^3/uL (4.0-10.0) 08/05/22 23:20 RBC 5.01 10^6/uL (4.1-5.3) 08/05/22 23:20 Hgb 14.1 g/dL (11.5-15.3) 08/05/22:20 Hct 43.4 % (37.0-47.0) 08/05/22: MCV 86.6 fl (81-99) 08/05/22 23: MCH 28.1 pg (28.0-34.0) 08/05/22: MCHC 32.5 g/dL (30.0-36.0) 08/05/22 23:20 RDW 14.5 % (12.1-15.1) 08/05/22 23:20 Plt Count 298 10^3/cmm (130-400) 08/05/22 23:20 MPV 10.4 fL (7.4-10.4) 08/05/22 23:20 Neut % (Auto) 52.1 % 08/05/22 23:20 Lymph % (Auto) 34.0 % 08/05/22 23:20 [place] % (Auto) 8.6 % 08/05/22 23:20 Eos % (Auto) 4.2 % 08/05/22 23:20 Baso % (Auto) 0.8 % 08/05/22 23:20 Neut # (Auto) 4.80 10^3/uL (1.8-7.7) 08/05/22 23:20 Lymph # (Auto) 3.1 10^3/uL (0.8-4.8) 08/05/22 23:20 [place] # (Auto) 0.8 10^3/uL (0.2-0.9) 08/05/22 23:20 Eos # (Auto) 0.4 10^3/uL (0.0-0.8) 08/05/22 23:20 Baso # (Auto) 0.1 10^3/uL (0.0-0.1) 08/05/22 23:20 Nucleated RBC % (auto) 0 % 08/05/22 23:20 Nucleated RBCs # 0.0 /100WBC 08/05/22 23:20 PT 15.80 SECONDS (12.1-14.9) H 08/05/22 23:20 INR 1.22 (0.8-1.2) H 08/05/22 23:20 APTT 31.3 SECONDS (23.9-36.7) 08/05/22 23:20 Sodium 139 mmol/L (136-145) 08/05/22 23:20 Potassium 4.0 mmol/L (3.5-5.1) 08/05/22 23:20 Chloride 102 mmol/L (98-107) 08/05/22 23:20 Carbon Dioxide 26 mmol/L (22-29) 08/05/22 23:20 Anion Gap 15.0 (5-19) 08/05/22 23:20 BUN 10 mg/dL (8-23) 08/05/22 23:20 Creatinine 0.4 mg/dL (0.5-0.9) L 08/05/22 23:20 GFR Calculation Not Reportable 08/05/22 23:20 Glucose 92 mg/dL (65-115) 08/05/22 23:20 POC Glucose 89 mg/dL (70-110) 08/05/22 23:03 Calculated Osmolality 287 mOsm/kg (285-295) 08/05/22 23:20 Calcium 8.9 mg/dL (8.5-10.5) 08/05/22 23:20 Total Bilirubin 0.4 mg/dL (0.15-1.2) 08/05/22 23:20 AST 19 U/L (0-32) 08/05/22 23:20 ALT 13 U/L (0-33) 08/05/22 23:20 Alkaline Phosphatase 90 U/L (35-105) 08/05/22 23:20 Total Protein 6.3 g/dL (6.6-8.7) L 08/05/22 23:20 Albumin 3.9 g/dL (3.5-5.2) 08/05/22 23:20 Globulin 2.4 g/dL (1.3-4.6) 08/05/22 23:20 Urine Color Yellow (Yellow) 08/06/22 01:07 Urine Appearance Clear (CLEAR) 08/06/22 01:07 Urine pH 7 (5-7) 08/06/22 01:07 Ur Specific [place] 1.010 (1.005-1.030) 08/06/22 01:07 Urine Protein Neg (Negative) 08/06/22 01:07 Urine Glucose (UA) 4+ (Normal) H 08/06/22 01:07 Urine Ketones Negative (Negative) 08/06/22 01:07 Urine Blood Neg (Negative) 08/06/22 01:07 Urine Nitrate Negative (Negative) 08/06/22 01:07 Urine Bilirubin Neg (Negative) 08/06/22 01:07 Urine Urobilinogen Neg mg/dL (Negative) 08/06/22 01:07 Ur Leukocyte Esterase Negative (Negative) 08/06/22 01:07 Discharge Plan Discharge Patient Disposition: Home Clinical Impression: Paresthesia and pain of left extremity Condition: Stable Prescriptions: No Action (DME) OneTouch Ultra Blue Test Strip Strip See Rx Instructions .ROUTE .MEDSUPPLY Qty: 10 Rx Instructions: As directed (DME) pen needle, diabetic [Comfort EZ Pen Callery] 31 gauge x 5/16 needle See Rx Instructions .ROUTE .MEDSUPPLY Qty: 30 Rx Instructions: As directed pantoprazole 20 mg tablet,delayed release (DR/EC) 20 mg PO DAILY albuterol sulfate [Proventil HFA] 90 mcg/actuation HFA aerosol inhaler 2 puff INHALATION Q4H PRN (Reason: Shortness Of Breath) Farxiga 10 mg tablet 10 mg PO QAM cholecalciferol (vitamin D3) 5,000 unit capsule 5,000 unit PO .COMPLEX Rx Instructions: 5,000 units PO 1 cap on the and 16th of each month; losartan [Cozaar] 25 mg tablet 25 mg PO DAILY (DME) Systane Contacts Drops See Rx Instructions .ROUTE .MEDSUPPLY Qty: 12 Rx Instructions: As directed hydroxyzine HCl 25 mg tablet 25 mg PO DAILY PRN (Reason: anxiety) Toujeo Max U-300 SoloStar 300 unit/mL (3 mL) insulin pen 36 unit SUBCUT QDAY acetaminophen [Tylenol] 325 mg tablet 325 mg PO QID PRN Xarelto 20 mg tablet 20 mg PO DAILY Qty: 90 1RF Rx Instructions: must administer with evening meal at 340 be levothyroxine 75 mcg tablet 75 mcg PO DAILY duloxetine 30 mg capsule,delayed release(DR/EC) 30 mg PO BEDTIME Ozempic 0.25 mg or 0.5 mg(2 mg/1.5 mL) Pen Injector 0.5 mg SUBCUT Q7D Rx Instructions: ON SUNDAYS atorvastatin 40 mg tablet 40 mg PO DAILY Qty: 90 0RF Advair Diskus 250-50 mcg/dose Blister With Device 1 puff inhalation BID.RESPIRATORY Qty: 60 0RF Lasix 20 mg tablet 20 mg PO Q48H Qty: 30 0RF potassium chloride 10 mEq capsule, extended release 10 meq PO Q48H Qty: 30 0RF Rx Instructions: On the days of lasix Discharge Orders: Discharge ED (Routine); Ordered 08/06/22 Ordered By: Desmond Foster Referrals: Nuris Moran DO [Primary Care Provider] - 1-3 days Patient Instructions: Paresthesia (ED) Activity Restrictions/Additional Instructions: Return to the emergency department for worsening weakness, numbness, problems with speech or language, problems with vision, or any other concerning symptoms. See your doctor this week in follow-up. There may be more outpatient tests they wish to perform. Coding Level of Care Code ED Tie Loader for Barb Gore
[2022-08-05 23:33] LABS: Basophils # 0.1 10^3/uL (0.0-0.1); Basophils % 0.8 %; Eosinophils # 0.4 10^3/uL (0.0-0.8); Eosinophils % 4.2 %; Hematocrit 43.4 % (37.0-47.0); Hemoglobin 14.1 g/dL (11.5-15.3); Lymphocytes # 3.1 10^3/uL (0.8-4.8); Mean Corpuscular HGB Conc 32.5 g/dL (30.0-36.0); Mean Corpuscular Hemoglobin 28.1 pg (28.0-34.0); Mean Corpuscular Volume 86.6 fl (81-99); Mean Platelet Volume 10.4 fL (7.4-10.4); Monocytes # 0.8 10^3/uL (0.2-0.9); Monocytes % 8.6 %; Neutrophils % 52.1 %; Nucleated Red Blood Cells % 0 %; Platelet Count 298 10^3/cmm (130-400); Red Blood Count 5.01 10^6/uL (4.1-5.3); Red Cell Distribution Width 14.5 % (12.1-15.1); White Blood Count 9.2 10^3/uL (4.0-10.0)
[2022-08-05] MEDS: sodium chloride 0.9% 500 ML 999 ML IV (23:45)
[2022-08-05 23:46] LABS: INR 1.22 (0.8-1.2); Partial Thromboplastin Time 31.3 SECONDS (23.9-36.7)
[2022-08-05 23:53] LABS: Albumin Level 3.9 g/dL (3.5-5.2); Alkaline Phosphatase 90 U/L (35-105); Blood Urea Nitrogen 10 mg/dL (8-23); Calcium 8.9 mg/dL (8.5-10.5); Carbon Dioxide 26 mmol/L (22-29); Chloride 102 mmol/L (98-107); Globulin 2.4 g/dL (1.3-4.6); Glucose 92 mg/dL (65-115); Osmolality Calculated 287 mOsm/kg (285-295); Sodium 139 mmol/L (136-145); Total Bilirubin 0.4 mg/dL (0.15-1.2); Total Protein 6.3 g/dL (6.6-8.7)
[2022-08-06] LABS: Alanine Aminotransferase 13 U/L (0-33); Aspartate Amino Transferase 19 U/L (0-32)
[2022-08-06 01:19] LABS: Add Urine Microscopic? NO; Charge for UA Resulting for Rev
[2022-08-06 01:30] LABS: Bilirubin Urine Neg (Negative); Blood Urine Neg (Negative); Glucose Urine UA 4+ (Normal); Ketones Urine Negative (Negative); Leukocyte Esterase Urine Negative (Negative); Nitrate Urine Negative (Negative); Protein Urine Neg (Negative); Urine Appearance Clear (CLEAR); Urine Color Yellow (Yellow); Urobilinogen Urine Neg (Negative); pH Urine 7 (5-7)
--- NOTE | 2022-08-06 02:50 | PC.NURSE ---
Pt instructed to ambulate. Pt tolerated ambulation well with a walker and was able to transition from and to bed. SpO2 saturation 94% after ambulation, pt denied SOB, dizziness. Pt resting in bed.
[2022-08-06 03:35] VITALS: O2SAT 89
[2022-08-06 03:40] VITALS: BP 160/75; O2SAT 91
[2022-08-06] MEDS: ketorolac 30 mg/mL INJ 15 MG IVP (03:42)
[2022-08-06 03:45] VITALS: BP 160/75; O2SAT 93
[2022-08-06 03:50] VITALS: BP 160/75; O2SAT 96
[2022-08-06 03:55] VITALS: BP 160/75; O2SAT 90
[2022-08-06 04:00] VITALS: BP 160/75; O2SAT 92
== END 2022-08-06 04:25 | disposition home or self-care (01) ==
PROVIDERS: Emergency Provider Emergency Medicine; PCP Family Medicine
DX: R20.2 Paresthesia of skin (principal); M79.602 Pain in left arm; Z79.4 Long term (current) use of insulin; Z87.891 Personal history of nicotine dependence; E11.9 Type 2 diabetes mellitus without complications; I11.0 Hypertensive heart disease with heart failure; I50.30 Unspecified diastolic (congestive) heart failure; Z86.73 Personal history of transient ischemic attack (TIA), and cerebral infarction without residual deficits
CPT/HCPCS: 36416; 70450; 80053; 81003; 82962; 85025; 85610; 85730; 93005; 96374; 99285; J1885; J7040

== ENCOUNTER → 2022-08-15 08:27 | Outpatient (BNVA) | payer MEDICARE, OTHER, SELFPAY | PROVIDERS: PCP Family Medicine; Visit Provider Internal Medicine Pulmonary Disease | DX: J44.9 Chronic obstructive pulmonary disease, unspecified (principal); M25.641 Stiffness of right hand, not elsewhere classified; M25.642 Stiffness of left hand, not elsewhere classified; R09.02 Hypoxemia; Z87.891 Personal history of nicotine dependence; I50.30 Unspecified diastolic (congestive) heart failure; R76.8 Other specified abnormal immunological findings in serum | CPT/HCPCS: 99214 ==

== ENCOUNTER → 2022-11-21 10:22 | Outpatient (BNVA) | payer MEDICARE, OTHER, SELFPAY | PROVIDERS: PCP Family Medicine; Visit Provider Internal Medicine Rheumatology | DX: M19.90 Unspecified osteoarthritis, unspecified site (principal); M81.0 Age-related osteoporosis without current pathological fracture; Z79.899 Other long term (current) drug therapy; M19.041 Primary osteoarthritis, right hand; M19.042 Primary osteoarthritis, left hand | CPT/HCPCS: 73130; 73630; 99204 ==

== ENCOUNTER 2022-11-30 12:27 | Outpatient (CLI) | payer MEDICARE, OTHER, SELFPAY ==
--- NOTE | 2022-11-30 14:00 | XR_ITS ---
WS: [id number] SCREENING DEXA SCAN DS [employer] CLINICAL INFORMATION: M81.0 - Age-related osteoporosis without current patholog... COMPARISON: None. FINDINGS: The L1-L4 bone mineral density measures 1.011 g/cm2. This corresponds to a T score score of -1.4 and Z score of -0.1. Left femoral neck bone mineral density measures 0.737 g/cm2. This corresponds to a T score of -2.1 an d Z score of -0.5. Right femoral neck bone mineral density measures 0.743 g/cm2. This corresponds to a T score -2.1of an d Z score of -0.4. Mean femoral neck bone mineral density measures 0.740 g/cm2. This corresponds to a T score of -2.1 an d Z score of -0.5. XR/XR DEXA axial skeleton* [id number] IMPRESSION: Osteopenia lumbar spine. Osteopenia femoral necks. Patient's FRAX calculated 10 year probability for major osteoporotic fracture i s 33.3 % and osteoporotic hip fracture is 12.9%.
== END 2022-11-30 12:28 | disposition home or self-care (01) ==
LOC: RAD 12:30
PROVIDERS: PCP Family Medicine; Visit Provider Internal Medicine Rheumatology
DX: M81.0 Age-related osteoporosis without current pathological fracture (principal); M85.88 Other specified disorders of bone density and structure, other site; M19.072 Primary osteoarthritis, left ankle and foot; M19.071 Primary osteoarthritis, right ankle and foot; M20.42 Other hammer toe(s) (acquired), left foot; M19.042 Primary osteoarthritis, left hand; M19.041 Primary osteoarthritis, right hand
CPT/HCPCS: 73130; 73630; 77080; 99204

== ENCOUNTER → 2023-01-21 13:31 | Outpatient (BNVA) | payer MEDICARE, OTHER, SELFPAY | PROVIDERS: PCP Family Medicine; Visit Provider Internal Medicine Rheumatology | DX: Z79.899 Other long term (current) drug therapy (principal); M19.90 Unspecified osteoarthritis, unspecified site; M19.041 Primary osteoarthritis, right hand; M19.042 Primary osteoarthritis, left hand; M06.041 Rheumatoid arthritis without rheumatoid factor, right hand; M06.042 Rheumatoid arthritis without rheumatoid factor, left hand | CPT/HCPCS: 99214 ==

== ENCOUNTER → 2023-04-15 13:09 | Outpatient (BNVA) | payer MEDICARE, OTHER, SELFPAY | PROVIDERS: PCP Family Medicine; Visit Provider Internal Medicine Cardiovascular Disease | DX: R06.09 Other forms of dyspnea (principal); Z86.73 Personal history of transient ischemic attack (TIA), and cerebral infarction without residual deficits; I11.0 Hypertensive heart disease with heart failure; I50.30 Unspecified diastolic (congestive) heart failure; E03.9 Hypothyroidism, unspecified; J44.9 Chronic obstructive pulmonary disease, unspecified; Z87.891 Personal history of nicotine dependence; Z79.01 Long term (current) use of anticoagulants | CPT/HCPCS: 99214 ==

== ENCOUNTER → 2023-10-07 12:46 | Outpatient (BNVA) | payer MEDICARE, OTHER, SELFPAY | PROVIDERS: PCP Family Medicine; Visit Provider Internal Medicine Cardiovascular Disease | DX: I11.0 Hypertensive heart disease with heart failure (principal); I50.30 Unspecified diastolic (congestive) heart failure; I48.91 Unspecified atrial fibrillation; R06.00 Dyspnea, unspecified; E03.9 Hypothyroidism, unspecified; J44.9 Chronic obstructive pulmonary disease, unspecified; Z86.73 Personal history of transient ischemic attack (TIA), and cerebral infarction without residual deficits; Z87.891 Personal history of nicotine dependence; Z79.01 Long term (current) use of anticoagulants | CPT/HCPCS: 99214 ==

== ENCOUNTER 2023-10-14 09:36 | Outpatient (CLI) | payer MEDICARE, OTHER, SELFPAY ==
--- NOTE | 2023-10-14 09:42 | XRR_ITS ---
PROCEDURE INFORMATION: Exam: XR Cervical Spine Exam date and time: 10/14/2023 9:48 AM Age: 83 years old Clinical indication: Neck pain; Additional info: Neck pain/pain in L shoulder TECHNIQUE: Imaging protocol: Radiologic exam of the cervical spine. Views: 4 or 5 views. COMPARISON: CT angio headneck* [id number] 08/13/2021 3:22 PM FINDINGS: Bones/joints: Moderate disc space narrowing and spurring C4 through C7. Anatomic alignment. The prevertebral soft tissues are normal. No lytic or sclerotic bone lesion. Spondylitic hypertrophy and foraminal narrowing C4 through C7.. No acute fracture. Normal alignment. Soft tissues: Unremarkable. XR/XR cervical spine 4-5V [id number] IMPRESSION: Degenerative changes.
--- NOTE | 2023-10-14 09:49 | XRR_ITS ---
PROCEDURE INFORMATION: Exam: XR Left Shoulder Exam date and time: 10/14/2023 1:26 PM Age: 83 years old Clinical indication: Pain; Shoulder; Left; Additional info: Pain in left shoulder TECHNIQUE: Imaging protocol: Radiologic exam of the left shoulder. Views: 2 or more views. COMPARISON: CR XR cervical spine 4-5V [id number] 10/14/2023 9:48 AM FINDINGS: Bones/joints: Mild acromioclavicular and glenohumeral spurring. No fracture or dislocation. No acute osseous or joint abnormality.. Soft tissues: Normal. XR/XR shoulder LT min 2V* [id number] IMPRESSION: Mild degenerative changes.
== END 2023-10-14 09:37 | disposition home or self-care (01) ==
LOC: RAD 09:37
PROVIDERS: PCP Family Medicine; Visit Provider Family Medicine
DX: M25.512 Pain in left shoulder (principal); M50.30 Other cervical disc degeneration, unspecified cervical region; M19.012 Primary osteoarthritis, left shoulder
CPT/HCPCS: 72050; 73030

== ENCOUNTER → 2023-10-29 13:56 | Outpatient (BNVA) | payer MEDICARE, OTHER, SELFPAY | PROVIDERS: PCP Family Medicine; Referring Provider Family Medicine; Visit Provider Orthopaedic Surgery | DX: M54.2 Cervicalgia (principal) | CPT/HCPCS: 72050; 99204 ==

== ENCOUNTER → 2023-12-12 07:59 | Outpatient (BNVA) | payer MEDICARE, OTHER, SELFPAY | PROVIDERS: PCP Family Medicine; Visit Provider Orthopaedic Surgery | DX: M54.2 Cervicalgia (principal) | CPT/HCPCS: 99213 ==

== ENCOUNTER → 2023-12-13 13:06 | Outpatient (BNVA) | payer MEDICARE, OTHER, SELFPAY | PROVIDERS: PCP Family Medicine; Referring Provider Family Medicine; Visit Provider Student in an Organized Health Care Education/Training Program | DX: M75.42 Impingement syndrome of left shoulder (principal); M25.512 Pain in left shoulder | CPT/HCPCS: 20610; 99204; J3301 ==

== ENCOUNTER 2024-06-09 11:16 | Outpatient (CLI) | payer MEDICARE, OTHER, SELFPAY ==
--- NOTE | 2024-06-09 11:26 | USCV_ITS ---
Shena Moreno Age: 83 Gender: F : 1940 Exam Date: 06/09/2024 12:19 Ordering Phys: Nuris Moran DO Technologist: [place] [facility] [place]: BP: 118 / 60 HR: 71 Rhythm: Sinus Technical Quality: Adequate MEASUREMENTS (Male / Female) Normal Values 2D ECHO LVOT Diameter 2.0 cm LV Ejection Fraction MOD 4C 60.5 % LV Ejection Fraction MOD 2C 63.3 % LV Ejection Fraction 2C AL 65.8 % LA Diameter 4.6 cm RA Systolic Volume 4C AL 31.6 ml RA Systolic Volume 4C MOD 31.6 ml LA Sys Volume AL 76.9 cm cubed LA Sys Volume Index AL 39.8 cm cubed/m squared Aorta at Sinotubular Diameter 2.7 cm IVC Diameter 1.9 cm M-MODE LA Ao Ratio MM 1.4 AV Cusp Separation MM 1.8 cm DOPPLER AV Peak Velocity 226.0 cm/s LVOT Peak Velocity 83.0 cm/s AV Area Cont Eq vti 1.4 cm squared AV Area Cont Eq pk 1.1 cm squared MV Peak Velocity 344.0 cm/s MV Area PHT 3.1 cm squared Mitral E to A Ratio 1.1 TR Peak Velocity 338.0 cm/s TR Peak Gradient 45.7 mmHg TV Peak E Velocity 53.0 cm/s PV Peak Velocity 95.0 cm/s FINDINGS Left Ventricle Normal left ventricular size and systolic function, EF 64%. Moderate concentric left trickle hypertrophy.Grade II/IV diastolic dysfunction, moderately elevated filling pressures. Right Ventricle The right ventricle is normal in size and function. Right Atrium The right atrium is normal in size. Left Atrium Moderately increased left atrial size. Mitral Valve Moderate mitral annular calcification. Mild mitral valve regurgitation. Aortic Valve Thickened aortic valve. Moderate aortic valve calcification. Trace aortic valve regurgitation. Aortic valve sclerosis. Tricuspid Valve Trace tricuspid valve regurgitation. Estimated pulmonary artery peak systolic pressure 49 mmHg Pulmonic Valve No gross abnormalities noted Pericardium Normal pericardium without effusion. Aorta Normal ascending aorta dimension. IVC The inferior vena cava appears normal. CONCLUSIONS Normal left ventricular size and systolic function, EF 64%. Moderate concentric left trickle hypertrophy.Grade II/IV diastolic dysfunction, moderately elevated filling pressures. Moderately increased left atrial size. Moderate mitral annular calcification. .Moderate aortic valve calcification. Trace aortic valve regurgitation. Features of aortic valve sclerosis Trace tricuspid valve regurgitation. Estimated pulmonary artery peak systolic pressure 49 mmHg There is no pericardial effusion. There are no intracardiac masses. Compared to the study from 08/14/2021, there is worsening of the aortic valve sclerosis Dr Dean Rodriguez MD [facility] (Electronically Signed) Final Date: 09 June 2024 23:21 S
== END 2024-06-09 11:17 | disposition home or self-care (01) ==
LOC: RAD 11:19
PROVIDERS: PCP Family Medicine; Visit Provider Family Medicine
DX: I50.30 Unspecified diastolic (congestive) heart failure (principal); I51.7 Cardiomegaly; I34.81 Nonrheumatic mitral (valve) annulus calcification; I70.0 Atherosclerosis of aorta; I35.0 Nonrheumatic aortic (valve) stenosis
CPT/HCPCS: 93306

== ENCOUNTER → 2024-06-26 09:25 | Outpatient (BNVA) | payer MEDICARE, OTHER, SELFPAY | PROVIDERS: PCP Family Medicine; Visit Provider Nurse Practitioner Family | DX: I11.0 Hypertensive heart disease with heart failure (principal); I50.32 Chronic diastolic (congestive) heart failure; I48.0 Paroxysmal atrial fibrillation; E11.9 Type 2 diabetes mellitus without complications; Z86.73 Personal history of transient ischemic attack (TIA), and cerebral infarction without residual deficits; Z87.891 Personal history of nicotine dependence; Z79.85 Long-term (current) use of injectable non-insulin antidiabetic drugs; Z79.4 Long term (current) use of insulin | CPT/HCPCS: 99214 ==

== ENCOUNTER 2024-08-10 09:06 | Outpatient (CLI) | payer MEDICARE, OTHER, SELFPAY ==
--- NOTE | 2024-08-10 09:19 | XR_ITS ---
WS: [id number] Exam: XR chest 2V* [id number] Date/Time of Exam: 08/10/2024 9:19 AM Reason For Exam: COUGH Comparison 10/19/2021. Chronic interstitial changes in the bilateral lung zones. No consolidating infiltrate identified. The lungs are fully inflated. No pleural effusions. Heart size top limits normal. The mediastinum is normal in contour. Bony structures are intact. XR/XR chest 2V* [id number] IMPRESSION: 1. Chronic interstitial changes in the lower lung zones. No acute process ident ified.
== END 2024-08-10 09:07 | disposition home or self-care (01) ==
PROVIDERS: PCP Family Medicine; Visit Provider Family Medicine
DX: R05.8 Other specified cough (principal); R91.8 Other nonspecific abnormal finding of lung field
CPT/HCPCS: 71046

== ENCOUNTER 2024-09-27 17:56 | Emergency (ER) | payer MEDICARE, OTHER, SELFPAY ==
[2024-09-27 18:02] VITALS: BP 172/90; PULSE 79; RESP 16; TEMP 37.1; O2SAT 93; BMI 30.9
--- NOTE | 2024-09-27 18:33 | W.ED.WOUNDLC ---
HPI - Wound/Laceration General: Chief Complaint: Wound/Laceration Stated Complaint: right hand injury Time Seen by Provider: 09/27/24 18:04 Source: patient Mode of arrival: ambulatory Limitations: no limitations History of Present Illness: 84yo female presents for evaluation of a skin tear to the top of the right hand that occurred when her dogs were fighting. Patient and family believe it may have been the dog nail, but are not for certain. Patient does take blood thinners. She reports her tetanus was within the past couple of years. She is able to move her hand with no difficulty. Denies any other injury or concern at this time. Associated symptoms: Denies chills or fever(s) Related Data Home Medications ?Medication ?Instructions ?Recorded ?Confirmed albuterol sulfate 90 mcg/actuation 2 puff inhalation Q4H PRN 07/10/19 06/26/24 aerosol inhaler (Proventil HFA) Shortness Of Breath blood sugar diagnostic (OneTouch #10 ea 07/10/19 06/26/24 Ultra Blue Test Strip) cholecalciferol (vitamin D3) 125 5,000 unit PO .COMPLEX 07/10/19 06/26/24 mcg (5,000 unit) capsule dapagliflozin propanediol 10 mg 10 mg PO QAM 07/10/19 06/26/24 tablet (Farxiga) losartan 25 mg tablet (Cozaar) 25 mg PO DAILY 07/10/19 06/26/24 pantoprazole 20 mg tablet,delayed 20 mg PO DAILY 07/10/19 06/26/24 release pen needle, diabetic 31 gauge x #30 ea 07/10/19 06/26/2411/06 (Comfort EZ Pen [place]) duloxetine 30 mg capsule,delayed 30 mg PO BEDTIME 08/13/21 06/26/24 release semaglutide 0.25 mg or 0.5 mg (2 0.5 mg SUBCUT Q7D 08/13/21 06/26/24 mg/1.5 mL) subcutaneous pen injector (Ozempic) acetaminophen 325 mg tablet 325 mg PO QID PRN 10/12/21 06/26/24 (Tylenol) hydroxyzine HCl 25 mg tablet 25 mg PO DAILY PRN anxiety 10/12/21 06/26/24 insulin glargine U-300 conc 300 36 unit SUBCUT QDAY 10/12/21 06/26/24 unit/mL (3 mL) subcutaneous pen (Toujeo Max U-300 SoloStar) levothyroxine 75 mcg tablet 75 mcg PO DAILY 06/22/22 06/26/24 clopidogrel 75 mg tablet 75 mg PO DAILY 08/15/22 06/26/24 semaglutide 1 mg/dose (4 mg/3 mL) mg SUBCUT 10/29/23 06/26/24 subcutaneous pen injector (Ozempic) Previous Rx's ?Medication ?Instructions ?Recorded atorvastatin 40 mg tablet 40 mg PO DAILY #90 tabs 08/14/21 fluticasone 250 mcg-salmeterol 50 1 puff inhalation BID.RESPIRATORY 08/14/21 mcg/dose blistr powdr for #60 ea inhalation (Advair Diskus) potassium chloride 10 mEq 10 meq PO Q48H #30 caps 08/14/21 capsule,extended release rivaroxaban 20 mg tablet (Xarelto) 20 mg PO DAILY #90 tabs 12/04/21 syringe with needle 1 mL 25 gauge #50 ea 02/07/23 x 5/8 (Monoject TB Safety Syringe) prednisone 20 mg tablet 20 mg PO DAILY Neck Pain #15 tabs 10/29/23 amoxicillin 875 mg-potassium 1 tab PO BID #10 tabs 09/27/24 clavulanate 125 mg tablet Allergies Allergy/AdvReac Type Severity Reaction Status Date / Time CLEMENTE Inhibitors Allergy ADR-Cough Verified 06/26/24 10:04 aspirin Allergy ADR-Nausea Verified 06/26/24 10:04 codeine Allergy ALGY-Swell Verified 06/26/24 10:04 Lip/Tongue/Throat metformin Allergy ADR-Diarrhe Verified 06/26/24 10:04 a nitrofurantoin (From Allergy ALGY-Rash Verified 06/26/24 10:04 Macrobid) Review of Systems Const: Denies: fever(s), chills or body aches Musc: Reports: other (Skin tear right hand); Denies: extremity pain or limited range of motion 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, bilateral High risk medication use Inflammatory arthritis Diastolic heart failure Embolic stroke Diabetes mellitus type 2 in obese DJD (degenerative joint disease) Insulin long-term use Bile reflux esophagitis Myalgia Hypertension, benign Hypothyroidism Anxiety Diabetes mellitus Family History Father Heart disease Diabetes Brother Heart disease Diabetes Mother Heart disease Social History Smoking and tobacco/nicotine status: former use of tobacco/nicotine Quit status (tobacco/nicotine): has quit using Year quit tobacco: 62 years ago Former quit date comment: 1ppd x 3 years Second hand smoke exposure: Yes (parents and spouse ) Physical Exam Const: COMMON NORMALS: no acute distress, patient oriented x3, healthy appearing and alert GENERAL APPEARANCE: cooperative OTHER: Patient is laying reclined on the stretcher no acute distress. She is able to give history with no difficulty. She is interactive with exam appropriately. Family at bedside HENMT: COMMON NORMALS: normocephalic HEAD & SCALP: normocephalic Chest: CHEST: Yes Symmetrical chest wall rise Resp: COMMON NORMALS: normal respiratory effort, No use of accessory muscles and clear to auscultation bilaterally EFFORT & INSPECTION: Yes able to speak in complete sentences and Yes symmetric chest movement AUSCULTATION: clear to auscultation bilaterally Extremity: RIGHT UPPER EXTREMITY: Yes hand & digits (FROM with no difficulty) Neuro: COMMON NORMALS: patient oriented x3 SENSORIUM/ORIENTATION: Yes alert Skin: TRAUMA: other (Skin tear, right hand. 4cm) Course Vital Signs: Vital signs: Vital Signs Temperature 98.7 F 09/27/24 18:02 Pulse Rate 79 09/27/24 18:02 Respiratory Rate 16 09/27/24 18:02 Blood Pressure 172/90 09/27/24 18:02 Pulse Oximetry 93 09/27/24 18:02 Oxygen Delivery Me thod Room Air 09/27/24 18:02 MDM - Wound/Laceration Medical Decision Making 84yo female presents for evaluation of a skin tear to the top of the right hand that occurred when her dogs were fighting. Patient and family believe it may have been the dog nail, but are not for certain. Patient does take blood thinners. She reports her tetanus was within the past couple of years. She is able to move her hand with no difficulty. Denies any other injury or concern at this time. Patient is nontoxic in appearance. Vital signs are stable. Given that the skin tear was from an injury with a dog, wound is loosely approximated due to concern for contamination. Wound was copiously irrigated with saline as well as cleansed with Betadine. Steri-Strips were placed. Augmentin prescribed, first dose provided while in the emergency department. Discussed wound care. Recommend follow-up with primary care for wound recheck. Return precautions provided. Patient states understanding and has no further questions or concerns at this time. No radiology studies performed this visit Discharge Plan Discharge Patient Disposition: Home Clinical Impression: Dog scratch, Skin tear of hand without complication Condition: Stable Prescriptions: New amoxicillin-pot clavulanate 875-125 mg tablet 1 tab PO BID Qty: 10 0RF No Action (DME) OneTouch Ultra Blue Test Strip Strip See Rx Instructions .ROUTE .MEDSUPPLY Qty: 10 Rx Instructions: As directed (DME) pen needle, diabetic [Comfort EZ Pen [place]] 31 gauge x 5/16 needle See Rx Instructions .ROUTE .MEDSUPPLY Qty: 30 Rx Instructions: As directed pantoprazole 20 mg tablet,delayed release (DR/EC) 20 mg PO DAILY albuterol sulfate [Proventil HFA] 90 mcg/actuation HFA aerosol inhaler 2 puff INHALATION Q4H PRN (Reason: Shortness Of Breath) Farxiga 10 mg tablet 10 mg PO QAM cholecalciferol (vitamin D3) 5,000 unit capsule 5,000 unit PO .COMPLEX Rx Instructions: 5,000 units PO 1 cap on the 1st and 16th of each month; losartan [Cozaar] 25 mg tablet 25 mg PO DAILY hydroxyzine HCl 25 mg tablet 25 mg PO DAILY PRN (Reason: anxiety) Toujeo Max U-300 SoloStar 300 unit/mL (3 mL) insulin pen 36 unit SUBCUT QDAY acetaminophen [Tylenol] 325 mg tablet 325 mg PO QID PRN Xarelto 20 mg tablet 20 mg PO DAILY Qty: 90 1RF Rx Instructions: must administer with evening meal at 340 be levothyroxine 75 mcg tablet 75 mcg PO DAILY Ozempic 1 mg/dose (4 mg/3 mL) pen injector SUBCUT prednisone 20 mg tablet 20 mg PO DAILY Qty: 15 0RF Rx Instructions: 60MG for 3 days, 40MG for 2 days, 20MG for 2 days clopidogrel 75 mg tablet 75 mg PO DAILY (DME) Monoject TB Safety Syringe 1 mL 25 gauge x 5/8 syringe See Rx Instructions .ROUTE .MEDSUPPLY Qty: 50 1RF Rx Instructions: As directed duloxetine 30 mg capsule,delayed release(DR/EC) 30 mg PO BEDTIME Ozempic 0.25 mg or 0.5 mg(2 mg/1.5 mL) Pen Injector 0.5 mg SUBCUT Q7D Rx Instructions: ON SUNDAYS atorvastatin 40 mg tablet 40 mg PO DAILY Qty: 90 0RF Advair Diskus 250-50 mcg/dose Blister With Device 1 puff inhalation BID.RESPIRATORY Qty: 60 0RF potassium chloride 10 mEq capsule, extended release 10 meq PO Q48H Qty: 30 0RF Rx Instructions: On the days of lasix Discharge Orders: Discharge ED (Routine); Ordered 09/27/24 Ordered By: Stuart Carlisle Referrals: Nuris Moran DO [Primary Care Provider] - Discharge Diet: Usual diet Discharge Activity: Resume usual activity Patient Instructions: Skin Tear (ED) Activity Restrictions/Additional Instructions: Steri-Strips were applied to the wound to bring the edges closer together, but not close it completely due to concern of dog saliva contaminating the wound. The Steri-Strips should fall off on their own within a week Gently wash the area with soap and water. Do not apply antibiotic ointment to the Steri-Strip area as it can dissolve the glue Augmentin has been sent to your pharmacy to help prevent infection. 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
[2024-09-27] MEDS: amoxicillin-clav 875-125 mg Tablet 1 TAB PO (18:47)
[2024-09-27 18:52] VITALS: BP 131/97; PULSE 77; RESP 18; O2SAT 93
== END 2024-09-27 18:51 | disposition home or self-care (01) ==
PROVIDERS: Emergency Provider Nurse Practitioner; PCP Family Medicine
DX: S61.411A Laceration without foreign body of right hand, initial encounter (principal); W54.8XXA Other contact with dog, initial encounter; Z79.02 Long term (current) use of antithrombotics/antiplatelets; Z87.891 Personal history of nicotine dependence; E11.9 Type 2 diabetes mellitus without complications; I11.0 Hypertensive heart disease with heart failure; I50.30 Unspecified diastolic (congestive) heart failure
CPT/HCPCS: 99283; A6446; J9999

== ENCOUNTER → 2024-10-06 10:06 | Outpatient (BNVA) | payer MEDICARE, OTHER, SELFPAY | PROVIDERS: PCP Family Medicine; Visit Provider Physician Assistant | DX: M75.42 Impingement syndrome of left shoulder (principal) | CPT/HCPCS: 20610; 73030; 99213; J3301; J9999 ==

== ENCOUNTER 2024-10-06 14:54 | Emergency (ER) | payer MEDICARE, OTHER, SELFPAY ==
[2024-10-06 15:09] VITALS: BP 122/70; PULSE 79; RESP 18; TEMP 36.7; O2SAT 94
--- NOTE | 2024-10-06 15:31 | XRR_ITS ---
PROCEDURE INFORMATION: Exam: XR Left Shoulder Exam date and time: 10/06/2024 3:38 PM Age: 84 years old Clinical indication: Injury or trauma; Fall; Blunt trauma (contusions or hematomas); Shoulder; Left TECHNIQUE: Imaging protocol: Radiologic exam of the left shoulder. Views: 2 or more views. COMPARISON: CR XR shoulder LT min 2V* [id number] 10/06/2024 10:08 AM FINDINGS: Limitations: Internal rotation of the humerus limits evaluation of the humeral neck. Lack of Grashey or axillary views limits assessment of the glenohumeral joint. Bones/joints: Glenohumeral and acromioclavicular alignment are grossly normal. Glenohumeral joint space is poorly visualize due to projection. There is mild AC joint arthritis. No acute fracture. Soft tissues: Visible soft tissues are unremarkable. XR/XR shoulder LT min 2V* [id number] IMPRESSION: 1. No acute findings. 2. Limited evaluation of the proximal humerus and glenohumeral joint as above.
--- NOTE | 2024-10-06 15:31 | XRR_ITS ---
PROCEDURE INFORMATION: Exam: XR Left Knee Exam date and time: 10/06/2024 3:40 PM Age: 84 years old Clinical indication: Injury or trauma; Fall; Blunt trauma; Knee; Left TECHNIQUE: Imaging protocol: Radiologic exam of the left knee. Views: 3 views. COMPARISON: CR XR knee LT 1-2V [id number] 08/30/2020 3:00 PM FINDINGS: Bones/joints: Alignment is normal. No acute fracture. No joint effusion. Soft tissues: Visible soft tissues are unremarkable. Vasculature: Vascular calcification is present. XR/XR knee LT 3V* [id number] IMPRESSION: No acute findings.
--- NOTE | 2024-10-06 15:31 | XRR_ITS ---
PROCEDURE INFORMATION: Exam: XR Left Hip Exam date and time: 10/06/2024 3:42 PM Age: 84 years old Clinical indication: Injury or trauma; Fall; Blunt trauma (contusions or hematomas); Left; Hip TECHNIQUE: Imaging protocol: Radiologic exam of the left hip. Views: 2 or 3 views hip with pelvis when performed. COMPARISON: No relevant prior studies available. FINDINGS: Bones/joints: Alignment is normal. Joint spaces are preserved. No acute fracture. Soft tissues: Visible soft tissues are unremarkable. Vasculature: Vascular calcification is present. XR/XR hip LT 2-3V wo/w pel* [id number] IMPRESSION: No acute findings.
--- NOTE | 2024-10-06 16:09 | XRR_ITS ---
PROCEDURE INFORMATION: Exam: XR Left Humerus Exam date and time: 10/06/2024 4:17 PM Age: 84 years old Clinical indication: Injury or trauma; Fall; Blunt trauma (contusions or hematomas); Arm, upper; Left TECHNIQUE: Imaging protocol: Radiologic exam of the left humerus. Views: 2 or more views. COMPARISON: CR XR shoulder LT min 2V* [id number] 10/06/2024 3:38 PM FINDINGS: Bones/joints: Shoulder and elbow alignment are grossly normal. No visible fracture. Lungs: Nonspecific chronic reticular opacity in the lower left lung is similar to 08/10/2024. Soft tissues: Visible soft tissues are unremarkable. XR/[place] [id number] IMPRESSION: No acute findings.
--- NOTE | 2024-10-06 16:09 | W.ED.FALL ---
HPI - Fall General: Chief Complaint: Fall Stated Complaint: fall Time Seen by Provider: 10/06/24 15:31 History of Present Illness: 84-year-old female who presents to the emergency room after a fall. She was using a walker stumbled and caught on a rock and she fell to her left side she got her arm up to protect her head she fell is complaining of pain in her left shoulder her left hip and her left knee she denies striking her head there is no loss conscious she has no neck pain. Associated symptoms-after fall: Denies abdominal pain, chest pain or neck pain Related Data Home Medications ?Medication ?Instructions ?Recorded ?Confirmed albuterol sulfate 90 mcg/actuation 2 puff inhalation Q4H PRN 07/10/19 10/06/24 aerosol inhaler (Proventil HFA) Shortness Of Breath blood sugar diagnostic (OneTouch #10 ea 07/10/19 10/06/24 Ultra Blue Test Strip) cholecalciferol (vitamin D3) 125 5,000 unit PO .COMPLEX 07/10/19 10/06/24 mcg (5,000 unit) capsule dapagliflozin propanediol 10 mg 10 mg PO QAM 07/10/19 10/06/24 tablet (Farxiga) losartan 25 mg tablet (Cozaar) 25 mg PO DAILY 07/10/19 10/06/24 pantoprazole 20 mg tablet,delayed 20 mg PO DAILY 07/10/19 10/06/24 release pen needle, diabetic 31 gauge x #30 ea 07/10/19 10/06/2411/06 (Comfort EZ Pen [place]) duloxetine 30 mg capsule,delayed 30 mg PO BEDTIME 08/13/21 10/06/24 release semaglutide 0.25 mg or 0.5 mg (2 0.5 mg SUBCUT Q7D 08/13/21 10/06/24 mg/1.5 mL) subcutaneous pen injector (Ozempic) acetaminophen 325 mg tablet 325 mg PO QID PRN 10/12/21 10/06/24 (Tylenol) hydroxyzine HCl 25 mg tablet 25 mg PO DAILY PRN anxiety 10/12/21 10/06/24 insulin glargine U-300 conc 300 36 unit SUBCUT QDAY 10/12/21 10/06/24 unit/mL (3 mL) subcutaneous pen (Toujeo Max U-300 SoloStar) levothyroxine 75 mcg tablet 75 mcg PO DAILY 06/22/22 10/06/24 clopidogrel 75 mg tablet 75 mg PO DAILY 08/15/22 10/06/24 semaglutide 1 mg/dose (4 mg/3 mL) mg SUBCUT 10/29/23 10/06/24 subcutaneous pen injector (Ozempic) Previous Rx's ?Medication ?Instructions ?Recorded atorvastatin 40 mg tablet 40 mg PO DAILY #90 tabs 08/14/21 fluticasone 250 mcg-salmeterol 50 1 puff inhalation BID.RESPIRATORY 08/14/21 mcg/dose blistr powdr for #60 ea inhalation (Advair Diskus) potassium chloride 10 mEq 10 meq PO Q48H #30 caps 08/14/21 capsule,extended release rivaroxaban 20 mg tablet (Xarelto) 20 mg PO DAILY #90 tabs 12/04/21 syringe with needle 1 mL 25 gauge #50 ea 02/07/23 x 5/8 (Monoject TB Safety Syringe) prednisone 20 mg tablet 20 mg PO DAILY Neck Pain #15 tabs 10/29/23 amoxicillin 875 mg-potassium 1 tab PO BID #10 tabs 09/27/24 clavulanate 125 mg tablet diclofenac sodium 75 mg 75 mg PO Q12H PRN pain #20 tabs 10/06/24 tablet,delayed release Allergies Allergy/AdvReac Type Severity Reaction Status Date / Time CLEMENTE Inhibitors Allergy ADR-Cough Verified 10/06/24 15:14 aspirin Allergy ADR-Nausea Verified 10/06/24 15:14 codeine Allergy ALGY-Swell Verified 10/06/24 15:14 Lip/Tongue/Throat metformin Allergy ADR-Diarrhe Verified 10/06/24 15:14 a nitrofurantoin (From Allergy ALGY-Rash Verified 10/06/24 15:14 Macrobid) Review of Systems Const: Denies: fever(s) or chills Card: Denies: chest pain Resp: Denies: dyspnea GI: Denies: abdominal pain : Denies: dysuria, urinary frequency or urinary urgency Musc: Denies: neck pain or back pain Skin/Breast: Denies: rash 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, bilateral High risk medication use Inflammatory arthritis Diastolic heart failure Embolic stroke Diabetes mellitus type 2 in obese DJD (degenerative joint disease) Insulin long-term use Bile reflux esophagitis Myalgia Hypertension, benign Hypothyroidism Anxiety Diabetes mellitus Family History Father Heart disease Diabetes Brother Heart disease Diabetes Mother Heart disease Social History Smoking and tobacco/nicotine status: former use of tobacco/nicotine Quit status (tobacco/nicotine): has quit using Year quit tobacco: 62 years ago Former quit date comment: 1ppd x 3 years Second hand smoke exposure: Yes (parents and spouse ) Physical Exam Const: COMMON NORMALS: no acute distress GENERAL APPEARANCE: cooperative and comfortable ORIENTATION/CONSCIOUSNESS: Yes awake, Yes oriented to person, Yes oriented to place and Yes oriented to time HENMT: COMMON NORMALS: normocephalic, atraumatic and hearing grossly normal bilaterally HEAD & SCALP: normocephalic and atraumatic Resp: COMMON NORMALS: normal respiratory effort, No retractions, No use of accessory muscles and clear to auscultation bilaterally AUSCULTATION: clear to auscultation bilaterally Cardio: COMMON NORMALS: regular rate, regular rhythm and No murmurs present (Cardio) RATE: regular rate RHYTHM: regular rhythm GI: COMMON NORMALS: Soft to palpation and No hepatosplenomegaly present AUSCULTATION: Yes normoactive bowel sounds PALPATION: Yes Soft to palpation, No Tenderness to palpation present (GI), No Guarding due to palpation present (GI) and Yes No hepatosplenomegaly present Extremity: COMMON NORMALS: normal to inspection, capillary refill normal, no clubbing, cyanosis or edema, no calf tenderness and no pedal edema Neuro: SENSORIUM/ORIENTATION: Yes oriented to person, Yes oriented to place and Yes oriented to time Skin: COMMON NORMALS: no rashes or lesions noted GENERAL SKIN EXAM: no rashes or lesions noted Course Vital Signs: Vital signs: Vital Signs Temperature 98.1 F 10/06/24 15:09 Pulse Rate 79 10/06/24 17:01 Respiratory Rate 18 10/06/24 15:09 Blood Pressure 120/66 10/06/24 17:01 Pulse Oximetry 95 10/06/24 17:01 MDM - Fall Medical Decision Making X-rays show no acute fractures. Patient has full range of motion but some tenderness particular in the left shoulder. Neurologically intact discharged home diclofenac as needed Medical Records I reviewed the patient's medical records. Lab Data I reviewed the patient's lab results. Radiology Impressions Hip/Pelvis X-Ray 10/06/24 15:31 IMPRESSION: No acute findings. Knee X-Ray 10/06/24 15:31 IMPRESSION: No acute findings. Shoulder X-Ray 10/06/24 15:31 IMPRESSION: 1. No acute findings. 2. Limited evaluation of the proximal humerus and glenohumeral joint as above. Humerus X-Ray 10/06/24 16:09 IMPRESSION: No acute findings. All radiology interpretation(s) finalized by discharge Discharge Plan Discharge Patient Disposition: Home Clinical Impression: Fall Condition: Stable Prescriptions: New diclofenac sodium 75 mg tablet,delayed release (DR/EC) 75 mg PO Q12H PRN (Reason: pain) Qty: 20 0RF No Action (DME) OneTouch Ultra Blue Test Strip Strip See Rx Instructions .ROUTE .MEDSUPPLY Qty: 10 Rx Instructions: As directed (DME) pen needle, diabetic [Comfort EZ Pen [place]] 31 gauge x 5/16 needle See Rx Instructions .ROUTE .MEDSUPPLY Qty: 30 Rx Instructions: As directed pantoprazole 20 mg tablet,delayed release (DR/EC) 20 mg PO DAILY albuterol sulfate [Proventil HFA] 90 mcg/actuation HFA aerosol inhaler 2 puff INHALATION Q4H PRN (Reason: Shortness Of Breath) Farxiga 10 mg tablet 10 mg PO QAM cholecalciferol (vitamin D3) 5,000 unit capsule 5,000 unit PO .COMPLEX Rx Instructions: 5,000 units PO 1 cap on the 1st and 16th of each month; losartan [Cozaar] 25 mg tablet 25 mg PO DAILY hydroxyzine HCl 25 mg tablet 25 mg PO DAILY PRN (Reason: anxiety) Toujeo Max U-300 SoloStar 300 unit/mL (3 mL) insulin pen 36 unit SUBCUT QDAY acetaminophen [Tylenol] 325 mg tablet 325 mg PO QID PRN Xarelto 20 mg tablet 20 mg PO DAILY Qty: 90 1RF Rx Instructions: must administer with evening meal at 340 be levothyroxine 75 mcg tablet 75 mcg PO DAILY Ozempic 1 mg/dose (4 mg/3 mL) pen injector SUBCUT prednisone 20 mg tablet 20 mg PO DAILY Qty: 15 0RF Rx Instructions: 60MG for 3 days, 40MG for 2 days, 20MG for 2 days clopidogrel 75 mg tablet 75 mg PO DAILY (DME) Monoject TB Safety Syringe 1 mL 25 gauge x 5/8 syringe See Rx Instructions .ROUTE .MEDSUPPLY Qty: 50 1RF Rx Instructions: As directed duloxetine 30 mg capsule,delayed release(DR/EC) 30 mg PO BEDTIME Ozempic 0.25 mg or 0.5 mg(2 mg/1.5 mL) Pen Injector 0.5 mg SUBCUT Q7D Rx Instructions: ON SUNDAYS atorvastatin 40 mg tablet 40 mg PO DAILY Qty: 90 0RF Advair Diskus 250-50 mcg/dose Blister With Device 1 puff inhalation BID.RESPIRATORY Qty: 60 0RF potassium chloride 10 mEq capsule, extended release 10 meq PO Q48H Qty: 30 0RF Rx Instructions: On the days of lasix amoxicillin-pot clavulanate 875-125 mg tablet 1 tab PO BID Qty: 10 0RF Discharge Orders: Discharge ED (Routine); Ordered 10/06/24 Ordered By: Higinio Real Referrals: Nuris Moran DO [Primary Care Provider] - Discharge Diet: Usual diet Discharge Activity: Increase activity as tolerated Patient Instructions: Opioid Safety, Pain Management Activity Restrictions/Additional Instructions: Thank you for choosing [facility] for your healthcare needs today. It is very important that you follow up as instructed or that you return to the Emergency Department should you have concerns or if your condition changes or worsens in any way. You were seen in the emergency room after fall x-rays of your shoulder upper arm hip and knee on the left side were all negative for acute fractures. Likely will be very sore over the next few days you can use diclofenac as needed. 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
[2024-10-06 17:01] VITALS: BP 120/66; PULSE 79; O2SAT 95
== END 2024-10-06 17:02 | disposition home or self-care (01) ==
PROVIDERS: Emergency Provider Family Medicine; PCP Family Medicine
DX: M25.512 Pain in left shoulder (principal); M25.552 Pain in left hip; M25.562 Pain in left knee; W19.XXXA Unspecified fall, initial encounter; E11.9 Type 2 diabetes mellitus without complications; I11.0 Hypertensive heart disease with heart failure; I50.30 Unspecified diastolic (congestive) heart failure; Z87.891 Personal history of nicotine dependence
CPT/HCPCS: 73030; 73060; 73502; 73562; 99284

== ENCOUNTER 2024-10-16 10:43 | Emergency (ER) | payer MEDICARE, OTHER, SELFPAY ==
[2024-10-16 11:01] VITALS: BP 131/71; PULSE 77; RESP 18; TEMP 36.7; O2SAT 92; BMI 33.0
--- NOTE | 2024-10-16 11:26 | W.ED.GENADLT ---
HPI - General Adult General: Chief complaint: General Medical Stated complaint: muscle cramping, lt knee inj Time Seen by Provider: 10/16/24 11:11 History of Present Illness: 84-year-old female with history of arthritis, diastolic congestive heart failure, diabetes, hypertension, hypothyroidism and anxiety who presents the emergency room with leg cramping and knee pain. She had a fall about 2 weeks ago and had x-rays done that were negative. She continues to have some pain in that knee but she is able to walk on it. She is also developed cramping in her legs bilaterally. She takes potassium at home and is worried that her electrolytes might be low. Related Data Home Medications ?Medication ?Instructions ?Recorded ?Confirmed dapagliflozin propanediol 10 mg 10 mg PO QAM 07/10/19 10/16/24 tablet (Farxiga) losartan 25 mg tablet (Cozaar) 25 mg PO DAILY 07/10/19 10/16/24 pantoprazole 20 mg tablet,delayed 20 mg PO DAILY 07/10/19 10/16/24 release semaglutide 0.25 mg or 0.5 mg (2 0.5 mg SUBCUT Q7D 08/13/21 10/16/24 mg/1.5 mL) subcutaneous pen injector (Ozempic) acetaminophen 325 mg tablet 325 mg PO QID PRN Pain 10/12/21 10/16/24 (Tylenol) hydroxyzine HCl 25 mg tablet 25 mg PO DAILY PRN anxiety 10/12/21 10/16/24 insulin glargine U-300 conc 300 28 unit SUBCUT QDAY 10/12/21 10/16/24 unit/mL (3 mL) subcutaneous pen (Toujeo Max U-300 SoloStar) clopidogrel 75 mg tablet 75 mg PO DAILY 08/15/22 10/16/24 alendronate 70 mg tablet 70 mg PO Q7D 10/16/24 10/16/24 duloxetine 20 mg capsule,delayed 20 mg PO BID 10/16/24 10/16/24 release sprinkle furosemide 20 mg tablet 20 mg PO DAILY 10/16/24 10/16/24 levothyroxine 88 mcg tablet 88 mcg PO DAILY 10/16/24 10/16/24 loratadine 10 mg tablet 10 mg PO QPM 10/16/24 10/16/24 omeprazole 40 mg capsule,delayed 40 mg PO DAILY 10/16/24 10/16/24 release potassium chloride 20 mEq 20 meq PO DAILY 10/16/24 10/16/24 tablet,extended release(part/cryst) Previous Rx's ?Medication ?Instructions ?Recorded atorvastatin 40 mg tablet 40 mg PO DAILY #90 tabs 08/14/21 rivaroxaban 20 mg tablet (Xarelto) 20 mg PO DAILY #90 tabs 12/04/21 diclofenac sodium 75 mg 75 mg PO Q12H PRN pain #20 tabs 10/06/24 tablet,delayed release Allergies Allergy/AdvReac Type Severity Reaction Status Date / Time CLEMENTE Inhibitors Allergy ADR-Cough Verified 10/06/24 15:14 aspirin Allergy ADR-Nausea Verified 10/06/24 15:14 codeine Allergy ALGY-Swell Verified 10/06/24 15:14 Lip/Tongue/Throat metformin Allergy ADR-Diarrhe Verified 10/06/24 15:14 a nitrofurantoin (From Allergy ALGY-Rash Verified 10/06/24 15:14 Macrobid) Review of Systems Narrative: Constitutional symptoms: Negative except as documented in HPI. Skin symptoms: Negative except as documented in HPI. Eye symptoms: Negative except as documented in HPI. ENMT symptoms: Negative except as documented in HPI. Respiratory symptoms: Negative except as documented in HPI. Cardiovascular symptoms: Negative except as documented in HPI. Gastrointestinal symptoms: Negative except as documented in HPI. Genitourinary symptoms: Negative except as documented in HPI. Musculoskeletal symptoms: Negative except as documented in HPI. Neurologic symptoms: Negative except as documented in HPI. Psychiatric symptoms: Negative except as documented in HPI. Endocrine symptoms: Negative except as documented in HPI. 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, bilateral High risk medication use Inflammatory arthritis Diastolic heart failure Embolic stroke Diabetes mellitus type 2 in obese DJD (degenerative joint disease) Insulin long-term use Bile reflux esophagitis Myalgia Hypertension, benign Hypothyroidism Anxiety Diabetes mellitus Family History Father Heart disease Diabetes Brother Heart disease Diabetes Mother Heart disease Social History Smoking and tobacco/nicotine status: former use of tobacco/nicotine Quit status (tobacco/nicotine): has quit using Year quit tobacco: 62 years ago Former quit date comment: 1ppd x 3 years Second hand smoke exposure: Yes (parents and spouse ) Physical Exam Narrative: EXAM NARRATIVE: General: Alert, no acute distress. Skin: Warm, dry. Head: Normocephalic, atraumatic. Neck: Supple, trachea midline. Eye: Extraocular movements are intact. Ears, nose, mouth and throat: mucosa moist. Cardiovascular: Regular, Normal peripheral perfusion. Respiratory: Lungs are clear to auscultation, respirations are non-labored, breath sounds are equal, Symmetrical chest wall expansion. Gastrointestinal: Soft, Nontender, Non distended Musculoskeletal: Normal ROM, no deformity. Neurological: Alert and oriented, No focal neurological deficit observed. Psychiatric: Cooperative, appropriate mood & affect. Course Vital Signs: Vital signs: Vital Signs Temperature 98.1 F 10/16/24 11:01 Pulse Rate 77 10/16/24 11:01 Respiratory Rate 18 10/16/24 11:01 Blood Pressure 131/71 10/16/24 11:01 Pulse Oximetry 92 10/16/24 11:01 Oxygen Delivery Me thod Room Air 10/16/24 11:01 MDM - General Adult Medical Decision Making Medical decision making: Differential diagnosis including but not limited to and based on the above HPI, review of systems and physical exam: Some concern for electrolyte abnormalities. She is already had an x-ray that showed no fractures and she is able to walk on it so I think her next step for her knee issues is orthopedics or her family doctor. Orders placed to evaluate differential diagnosis based on the above differential, HPI and physical exam Lab Review: Laboratory results were reviewed and interpreted by myself the emergency room physician. No leukocytosis. No anemia. Sodium is 135. Potassium is normal at 4.6. Magnesium is within normal limits. However BUN is a bit elevated at 27 which would indicate some dehydration. I reviewed the patient's medical record. Reexamination: Patient remained stable. No increased work of breathing. No altered mental status. No focal motor deficits. Assessment and plan: Dehydration Muscle cramps Knee injury ? Normal saline bolus in the emergency room - Discharged home - Discussed plan with patient. Answered any questions. - Evaluation and treatment of this problem were appropriate in the emergency setting. Lab Data 10/16/24 11:40 10/16/24 11:40 Laboratory Results WBC 11.19 10^3/uL (3.29-11.43) 10/16/24 11:40 RBC 4.96 10^6/uL (3.85-5.65) 10/16/24 11:40 Hgb 13.90 g/dL (11.27-16.99) 10/16/24 11:40 Hct 42.1 % (36-47) 10/16/24 11:40 MCV 84.9 fl (85-98) L 10/16/24 11:40 MCH 28.0 pg (27-33) 10/16/24 11:40 MCHC 33.0 g/dL (30-55) 10/16/24 11:40 RDW 14.4 % (12.1-15.1) 10/16/24 11:40 Plt Count 281 10^3/cmm (157-399) 10/16/24 11:40 MPV 10.3 fL (7.4-10.4) 10/16/24 11:40 Neut % (Auto) 65.8 % 10/16/24 11:40 Lymph % (Auto) 21.7 % 10/16/24 11:40 Phelps % (Auto) 9.0 % 10/16/24 11:40 Eos % (Auto) 2.5 % 10/16/24 11:40 Baso % (Auto) 0.6 % 10/16/24 11:40 Neut # (Auto) 7.36 10^3/uL (1.8-7.7) 10/16/24 11:40 Lymph # (Auto) 2.4 10^3/uL (0.8-4.8) 10/16/24 11:40 Phelps # (Auto) 1.0 10^3/uL (0.2-0.9) H 10/16/24 11:40 Eos # (Auto) 0.3 10^3/uL (0.0-0.8) 10/16/24 11:40 Baso # (Auto) 0.1 10^3/uL (0.0-0.1) 10/16/24 11:40 Nucleated RBC % (auto) 0 % 10/16/24 11:40 Nucleated RBCs # 0.0 /100WBC 10/16/24 11:40 Sodium 135 mmol/L (136-145) L 10/16/24 11:40 Potassium 4.6 mmol/L (3.5-5.1) 10/16/24 11:40 Chloride 99 mmol/L (98-107) 10/16/24 11:40 Carbon Dioxide 24 mmol/L (22-29) 10/16/24 11:40 Anion Gap 16.6 (5-19) 10/16/24 11:40 BUN 27 mg/dL (8-23) H 10/16/24 11:40 Creatinine 0.7 mg/dL (0.5-0.9) 10/16/24 11:40 GFR Calculation Not Reportable 10/16/24 11:40 Glucose 291 mg/dL (65-115) H 10/16/24 11:40 Calculated Osmolality 296 mOsm/kg (285-295) H 10/16/24 11:40 Calcium 9.2 mg/dL (8.5-10.5) 10/16/24 11:40 Magnesium 1.8 mg/dL (1.7-2.3) 10/16/24 11:40 Total Bilirubin 0.4 mg/dL (0.15-1.2) 10/16/24 11:40 AST 14 U/L (0-32) 10/16/24 11:40 ALT 20 U/L (0-33) 10/16/24 11:40 Alkaline Phosphatase 80 U/L (35-105) 10/16/24 11:40 Total Protein 6.5 g/dL (6.6-8.7) L 10/16/24 11:40 Albumin 3.9 g/dL (3.5-5.2) 10/16/24 11:40 Globulin 2.6 g/dL (1.3-4.6) 10/16/24 11:40 No radiology studies performed this visit Discharge Plan Discharge Patient Disposition: Home Clinical Impression: Dehydration, Muscle cramping, Knee injury Condition: Stable Prescriptions: No Action pantoprazole 20 mg tablet,delayed release (DR/EC) 20 mg PO DAILY Farxiga 10 mg tablet 10 mg PO QAM losartan [Cozaar] 25 mg tablet 25 mg PO DAILY hydroxyzine HCl 25 mg tablet 25 mg PO DAILY PRN (Reason: anxiety) Toujeo Max U-300 SoloStar 300 unit/mL (3 mL) insulin pen 28 unit SUBCUT QDAY acetaminophen [Tylenol] 325 mg tablet 325 mg PO QID PRN (Reason: Pain) Xarelto 20 mg tablet 20 mg PO DAILY Qty: 90 1RF Rx Instructions: must administer with evening meal at 340 be clopidogrel 75 mg tablet 75 mg PO DAILY Ozempic 0.25 mg or 0.5 mg(2 mg/1.5 mL) Pen Injector 0.5 mg SUBCUT Q7D Rx Instructions: ON SUNDAYS atorvastatin 40 mg tablet 40 mg PO DAILY Qty: 90 0RF diclofenac sodium 75 mg tablet,delayed release (DR/EC) 75 mg PO Q12H PRN (Reason: pain) Qty: 20 0RF alendronate 70 mg tablet 70 mg PO Q7D omeprazole 40 mg capsule,delayed release(DR/EC) 40 mg PO DAILY levothyroxine 88 mcg tablet 88 mcg PO DAILY potassium chloride 20 mEq tablet,ER particles/crystals 20 meq PO DAILY furosemide 20 mg tablet 20 mg PO DAILY loratadine 10 mg tablet 10 mg PO QPM duloxetine 20 mg Capsule, Delayed Rel Sprinkle 20 mg PO BID Discharge Orders: Discharge ED (Routine); Ordered 10/16/24 Ordered By: Sanjuanita Sen Referrals: Nuris Moran DO [Primary Care Provider] - Discharge Diet: Usual diet Discharge Activity: Increase activity as tolerated Patient Instructions: Opioid Safety, Pain Management Activity Restrictions/Additional Instructions: Thank you for choosing [facility] for your healthcare needs today. You have been screened and evaluated and felt safe for discharge. Health conditions do change or evolve sometimes and as such it is important that you follow up with your Primary Doctor to be re checked, 3-5 days is a general good time frame for follow up. You are always welcome to return to the ED for re assessment if your symptoms are worsening or you have new concerns Print Language: [place] Coding Level of Care Code ED Candy Roller for Barb Gore
[2024-10-16 11:45] LABS: Basophils # 0.1 10^3/uL (0.0-0.1); Basophils % 0.6 %; Eosinophils # 0.3 10^3/uL (0.0-0.8); Eosinophils % 2.5 %; Hematocrit 42.1 % (36-47); Lymphocytes # 2.4 10^3/uL (0.8-4.8); Lymphocytes % 21.7 %; Mean Corpuscular Volume 84.9 fl (85-98); Mean Platelet Volume 10.3 fL (7.4-10.4); Neutrophils # 7.36 10^3/uL (1.8-7.7); Neutrophils % 65.8 %; Nucleated Red Blood Cells % 0 %; Platelet Count 281 10^3/cmm (157-399); Red Blood Count 4.96 10^6/uL (3.85-5.65); Red Cell Distribution Width 14.4 % (12.1-15.1); White Blood Count 11.19 10^3/uL (3.29-11.43)
[2024-10-16 12:07] LABS: Alanine Aminotransferase 20 U/L (0-33); Albumin Level 3.9 g/dL (3.5-5.2); Alkaline Phosphatase 80 U/L (35-105); Anion Gap 16.6 (5-19); Aspartate Amino Transferase 14 U/L (0-32); Blood Urea Nitrogen 27 mg/dL (8-23); Calcium 9.2 mg/dL (8.5-10.5); Carbon Dioxide 24 mmol/L (22-29); Chloride 99 mmol/L (98-107); Creatinine Clr Calc Pharmacy 51.7236; Globulin 2.6 g/dL (1.3-4.6); Glucose 291 mg/dL (65-115); Magnesium 1.8 mg/dL (1.7-2.3); Osmolality Calculated 296 mOsm/kg (285-295); Potassium 4.6 mmol/L (3.5-5.1); Sodium 135 mmol/L (136-145); Total Bilirubin 0.4 mg/dL (0.15-1.2); Total Protein 6.5 g/dL (6.6-8.7)
--- NOTE | 2024-10-16 12:36 | USCV_ITS ---
Shena Moreno Age: 84 Gender: F : 1940 Exam Date: 10/16/2024 13:07 Ordering Phys: Sanjuanita Sen MD Technologist: [employer] [place] [facility] [place]: pain HISTORY: Lower extremity pain. PROCEDURES: Venous duplex imaging was performed in only the left lower extremity. The following venous structures were evaluated: common femoral vein, profunda vein, proximal portion of the greater saphenous vein, superficial femoral vein, and the popliteal vein. In addition, the posterior tibial and peroneal trunk were evaluated. FINDINGS: No evidence of DVT seen in any vessel visualized at this time. CONCLUSIONS No evidence of left lower extremity DVT. Juvenal Montenegro MD (Electronically Signed) Final Date: 16 October 2024 15:55 S
[2024-10-16] MEDS: sodium chloride 0.9% 1,000 ML 999 ML IV (13:43)
[2024-10-16 14:33] VITALS: BP 146/73; PULSE 76; O2SAT 93
[2024-10-16 14:36] VITALS: BP 146/73; PULSE 76; O2SAT 93
== END 2024-10-16 14:38 | disposition home or self-care (01) ==
PROVIDERS: Emergency Provider Emergency Medicine; PCP Family Medicine
DX: E86.0 Dehydration (principal); R25.2 Cramp and spasm; S89.92XA Unspecified injury of left lower leg, initial encounter; Z79.02 Long term (current) use of antithrombotics/antiplatelets; Z87.891 Personal history of nicotine dependence; E11.9 Type 2 diabetes mellitus without complications; I10 Essential (primary) hypertension; I11.0 Hypertensive heart disease with heart failure; I50.30 Unspecified diastolic (congestive) heart failure; W19.XXXA Unspecified fall, initial encounter
CPT/HCPCS: 80053; 83735; 85025; 93971; 96360; 99284; J7030

== ENCOUNTER 2024-11-24 10:32 | Outpatient (CLI) | payer MEDICARE, OTHER, SELFPAY ==
--- NOTE | 2024-11-24 10:40 | XR_ITS ---
WS: [id number] XR knee RT 3V* [id number] REASON FOR EXAM: PAIN IN R KNEE FINDINGS: No fracture or focal bone lesion. Minimal narrowing of the medial and lateral joint space with mild subchondral sclerosis in the medial knee joint compartment. There may be mild narrowing of the patellofemoral joint space. There is mild subchondral sclerosis and osteophytosis of the patella. XR/XR knee RT 3V* [id number] IMPRESSION: Mild osteoarthritis for age.
--- NOTE | 2024-11-24 10:40 | XR_ITS ---
WS: [id number] XR hip RT 2-3V wo/w pel* [id number] REASON FOR EXAM: R HIP JOINT PAIN FINDINGS: No fracture or focal bone lesion. Moderate narrowing of the posterior inferior joint space with mild subchondral sclerosis and osteophytosis of the acetabulum. Mild to moderate narrowing of the anterior superior joint space with mild to moderate subchondral sclerosis and moderate osteophytosis of the acetabulum. Mild osteophytosis of the femoral head. XR/XR hip RT 2-3V wo/w pel* [id number] IMPRESSION: No acute abnormality. Moderate to significant osteoarthritis of the right hip as above.
== END 2024-11-24 10:33 | disposition home or self-care (01) ==
PROVIDERS: PCP Family Medicine; Visit Provider Family Medicine
DX: M16.11 Unilateral primary osteoarthritis, right hip (principal); M25.751 Osteophyte, right hip; M17.11 Unilateral primary osteoarthritis, right knee; R93.6 Abnormal findings on diagnostic imaging of limbs; M25.761 Osteophyte, right knee
CPT/HCPCS: 73502; 73562

== ENCOUNTER → 2024-12-15 14:20 | Outpatient (BNVA) | payer MEDICARE, OTHER, SELFPAY | PROVIDERS: PCP Family Medicine; Visit Provider Physician Assistant | DX: M75.42 Impingement syndrome of left shoulder (principal); S49.92XA Unspecified injury of left shoulder and upper arm, initial encounter; W19.XXXA Unspecified fall, initial encounter | CPT/HCPCS: 73030; 99213 ==

== ENCOUNTER 2024-12-17 07:44 | Outpatient (CLI) | payer MEDICARE, OTHER, SELFPAY | END 2024-12-17 07:45 | disposition home or self-care (01) | LOC: SPT 07:45 | PROVIDERS: PCP Family Medicine; Visit Provider Physician Assistant | DX: Z46.89 Encounter for fitting and adjustment of other specified devices (principal); S49.92XD Unspecified injury of left shoulder and upper arm, subsequent encounter; X58.XXXD Exposure to other specified factors, subsequent encounter | CPT/HCPCS: A4565 ==

== ENCOUNTER → 2025-01-06 09:53 | Outpatient (BNVA) | payer MEDICARE, OTHER, SELFPAY | PROVIDERS: PCP Family Medicine; Visit Provider Physician Assistant | DX: S49.92XA Unspecified injury of left shoulder and upper arm, initial encounter (principal); W19.XXXA Unspecified fall, initial encounter; M75.42 Impingement syndrome of left shoulder | CPT/HCPCS: 73030; 99213 ==

== ENCOUNTER 2025-01-14 16:56 | Emergency (ER) | payer MEDICARE, OTHER, SELFPAY ==
--- OUTSIDE RECORDS SUMMARY | 2014-07-21 01:45 | XMS_ITS | Continuity of Care Document ---
Author Organization [facility] Address [address] [facility] [address] [place] [address] Phone Care Team Providers Care Greige Goods Marker Name Role Phone Petr TENA, Sage Unavailable [...] ASSESS POSTOP FOLLOW-UP VISIT Not medically necessary [facility] OFFICE/OUTPATIENT VISIT, EST Not medically necessary [facility] POSTOP FOLLOW-UP VISIT CATARACT SURG W/IOL, 1 [...] Copied on Encounter [facility], [address] [place] [address], [place], [place], [id number], [place] tel:[phone] [facility] No Information 5 Petr Cazares. [address], [place], [place], [address] , [place]. tel: [phone] Referring Provider: Sage Nieves, [address], [place], [address]. tel:[phone] [facility], [address] [place] [address], [id number], [place] tel:[phone] [facility] [place] No Information 4 Petr Cazares. [address], [place], [place], [address] , [place]. tel:[phone] [facility], [address] [place] [address], [place], [place], [address], [place] tel:[phone] [facility] No Information 4 Petr Cazares. [address], [place], [place], [address] , [place]. tel:[phone] Referring Provider: Sage Nieves, [address], [place], [address]. tel:[phone] OFFICE/OUTPA TIENT VISIT, EST [facility], [address] [place] [address], [place], [place], [address], [place] tel:[phone] [facility] No Information 4 Petr Cazares. [address], [place], [place], [address] , [place]. tel:[phone] Referring Provider: Sage Nieves, [address], [place], [address]. tel:[phone] [facility], [address] [place] [address], [place], [place], [address], [place] tel:[phone] [facility] No Information 2 Petr Cazares. [address], [place], [place], [address] , [place]. tel:[phone] Referring Provider: Damaso Langford OD, [address], [place], [address]. tel:[phone] [facility], [address] [place] [address], [place], [place], [address], [place] tel:[phone] [facility] No Information 2 Petr Cazares. [address], [place], [place], [address] , [place]. tel:[phone] Referring Provider: Sage Nieves, [address], [place], [address]. tel:[phone] OFFICE/OUTPA TIENT VISIT, [facility], [address] [place] [address], [place], [place], [address], [place] tel:[phone] [facility] No Information 2 Petr Cazares. [address], [place], [place], [address] , [place]. tel:[phone] Referring Provider: Sage Nieves, [address], [place], [address]. tel:[phone] [facility], [address] [place] [address], [place], [place], [address], [place] tel:[phone] [facility] No Information 2 Petr Cazares. [address], [place], [place], [address] , [place]. tel:[phone] Referring Provider: Sage Nieves, [address], [place], [address]. tel:[phone] [facility], [address] [place] [address], [id number], tel:[phone] [facility] No Information 2 Petr Cazares. [address], [place], [place], [address] , [place]. tel:[phone] Referring Provider: Sage Nieves, [address], [place], [address]. tel:[phone] [facility], [address] [place] [address], [id number], tel:[phone] [facility] No Information 2 Petr Cazares. [address], [place], [place], [address] , [place]. tel:[phone] Referring Provider: Sage Nieves, [address], [place], [address]. tel:[phone] [facility], [address] [place] [address], [id number], [place] tel:[phone] [facility] No Information 2 Petr Cazares. [address], [place], [place], [address] , [place]. tel:[phone] Referring Provider: Sage Nieves, [address], [place], [address]. tel:[phone] [facility], [address] [place] [address], [id number], [place] tel:[phone] [facility] No Information 2 Petr Cazares. [address], [place], [place], [address] , [place]. tel:[phone] Referring Provider: Damaso Langford OD, [address] [place], [address]. tel:[phone] OFFICE/OUTPA TIENT VISIT, [facility], [address], [id number], tel:[phone] [facility] No Information 2 Petr Cazares. [address] [facility], [address], [address] , [place]. tel:[phone] Referring Provider: Liss Brady OD, [address] [place], [address]. tel:[phone] [facility], [address], [id number], tel:[phone] [facility] No Information 2 Petr Cazares. [address] [facility], [address], [place], [place], [address] , [place]. tel:[phone] Referring Provider: Liss Brady OD, [address] [place], [address]. tel:[phone] Family History Family Member Type Diagnosis Age At Onset No Information Payers Payer name Insurance type Covered alliance party ID Authoriza tion(s) [place] [id number] [facility] CI [id number] Social History Type Description Quantity Date Captured [...]
[2025-01-14] VITALS (19 sets, daily range): BP systolic 136–182; BP diastolic 59–115; PULSE 75–82; RESP 14–23; TEMP 36.7; O2SAT 89–98; BMI 33.6
--- NOTE | 2025-01-14 16:59 | XRR_ITS ---
PROCEDURE INFORMATION: Exam: XR Chest Exam date and time: 01/14/2025 5:13 PM Age: 84 years old Clinical indication: Injury or trauma; Fall; Blunt trauma (contusions or hematomas) TECHNIQUE: Imaging protocol: Radiologic exam of the chest. Views: 1 view. COMPARISON: CR XR chest 2V* [id number] 08/10/2024 9:23 AM FINDINGS: Lungs: Unremarkable. No consolidation. Pleural spaces: Unremarkable. No pleural effusion. No pneumothorax. Heart/Mediastinum: Cardiomegaly. Bones/joints: Unremarkable. XR/XR chest 1V portable [id number] IMPRESSION: No acute cardiopulmonary findings.
--- NOTE | 2025-01-14 16:59 | XRR_ITS ---
PROCEDURE INFORMATION: Exam: XR Left Hip Exam date and time: 01/14/2025 5:14 PM Age: 84 years old Clinical indication: Injury or trauma; Fall; Blunt trauma (contusions or hematomas); Left; Hip TECHNIQUE: Imaging protocol: Radiologic exam of the left hip. Views: 2 or 3 views hip with pelvis when performed. COMPARISON: CR XR hip LT 2-3V wo/w pel* [id number] 10/06/2024 3:42 PM FINDINGS: Bones/joints: Unremarkable. No acute fracture. Soft tissues: Unremarkable. XR/XR hip LT 2-3V wo/w pel* [id number] IMPRESSION: No acute findings.
--- NOTE | 2025-01-14 16:59 | XRR_ITS ---
PROCEDURE INFORMATION: Exam: XR Left Femur Exam date and time: 01/14/2025 5:19 PM Age: 84 years old Clinical indication: Injury or trauma; Fall; Blunt trauma; Thigh or upper leg; Left TECHNIQUE: Imaging protocol: Radiologic exam of the left femur. Views: 2 views. COMPARISON: CR (PELVIS, ) 01/14/2025 5:14 PM FINDINGS: Bones/joints: Minimally displaced patellar fracture. Soft tissues: Prepatellar soft tissue swelling. XR/XR femur LT min 2V* [id number] IMPRESSION: 1. Minimally displaced patellar fracture. 2. Prepatellar soft tissue swelling.
--- NOTE | 2025-01-14 16:59 | XRR_ITS ---
PROCEDURE INFORMATION: Exam: XR Left Knee Exam date and time: 01/14/2025 5:19 PM Age: 84 years old Clinical indication: Injury or trauma; Fall; Blunt trauma; Knee; Left; Additional info: Fall, deformity TECHNIQUE: Imaging protocol: Radiologic exam of the left knee. Views: 3 views. COMPARISON: CR XR knee LT 3V* [id number] 10/06/2024 3:40 PM FINDINGS: Bones/joints: Displaced patellar fracture. Large joint effusion. Soft tissues: Prepatellar and infrapatellar soft tissue swelling. Vasculature: Atherosclerotic disease. XR/XR knee LT 3V* [id number] IMPRESSION: 1. Displaced patellar fracture. 2. Large joint effusion. 3. Prepatellar and infrapatellar soft tissue swelling.
--- NOTE | 2025-01-14 17:07 | ECG_ITS ---
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
--- NOTE | 2025-01-14 17:10 | W.ED.EXTPRO ---
HPI - Extremity Problem General: Chief complaint: Extremity Injury, Lower Stated complaint: fall , possible fx left knee Time Seen by Provider: 01/14/25 16:57 History of Present Illness: 84-year-old female with a history of arthritis, diastolic heart failure, embolic stroke, diabetes, morbid obesity, hypertension, hypothyroidism and diabetes who presents to the emergency room after she fell. She presents by ambulance. No head injury. No loss of consciousness. She says she tripped and fell. She is having a little pain in her left collarbone area. She says she is fractured that before. She is having severe pain in her left knee. Is very swollen with some bruising and abrasions. She does not want to straighten that leg. Related Data Home Medications ?Medication ?Instructions ?Recorded ?Confirmed dapagliflozin propanediol 10 mg 10 mg PO QAM 07/10/19 01/06/25 tablet (Farxiga) losartan 25 mg tablet (Cozaar) 25 mg PO DAILY 07/10/19 01/06/25 pantoprazole 20 mg tablet,delayed 20 mg PO DAILY 07/10/19 01/06/25 release semaglutide 0.25 mg or 0.5 mg (2 0.5 mg SUBCUT Q7D 08/13/21 01/06/25 mg/1.5 mL) subcutaneous pen injector (Ozempic) acetaminophen 325 mg tablet 325 mg PO QID PRN Pain 10/12/21 01/06/25 (Tylenol) hydroxyzine HCl 25 mg tablet 25 mg PO DAILY PRN anxiety 10/12/21 01/06/25 insulin glargine U-300 conc 300 28 unit SUBCUT QDAY 10/12/21 01/06/25 unit/mL (3 mL) subcutaneous pen (Toujeo Max U-300 SoloStar) clopidogrel 75 mg tablet 75 mg PO DAILY 08/15/22 01/06/25 alendronate 70 mg tablet 70 mg PO Q7D 10/16/24 01/06/25 duloxetine 20 mg capsule,delayed 20 mg PO BID 10/16/24 01/06/25 release sprinkle furosemide 20 mg tablet 20 mg PO DAILY 10/16/24 01/06/25 levothyroxine 88 mcg tablet 88 mcg PO DAILY 10/16/24 01/06/25 loratadine 10 mg tablet 10 mg PO QPM 10/16/24 01/06/25 omeprazole 40 mg capsule,delayed 40 mg PO DAILY 10/16/24 01/06/25 release potassium chloride 20 mEq 20 meq PO DAILY 10/16/24 01/06/25 tablet,extended release(part/cryst) Previous Rx's ?Medication ?Instructions ?Recorded atorvastatin 40 mg tablet 40 mg PO DAILY #90 tabs 08/14/21 rivaroxaban 20 mg tablet (Xarelto) 20 mg PO DAILY #90 tabs 12/04/21 diclofenac sodium 75 mg 75 mg PO Q12H PRN pain #20 tabs 10/06/24 tablet,delayed release sling #1 ea 12/15/24 hydrocodone 5 mg-acetaminophen 325 1 tab PO Q6H PRN pain 5 days #20 01/06/25 mg tablet tabs methocarbamol 500 mg tablet 500 mg PO TID PRN muscle spasm 7 01/06/25 days #21 tabs hydrocodone 5 mg-acetaminophen 325 1 tab PO Q6H PRN pain #20 tabs 01/14/25 mg tablet polyethylene glycol 3350 17 17 g PO DAILY #510 grams 01/14/25 gram/dose oral powder (Miralax) Allergies Allergy/AdvReac Type Severity Reaction Status Date / Time CLEMENTE Inhibitors Allergy ADR-Cough Verified 01/06/25 09:57 aspirin Allergy ADR-Nausea Verified 01/06/25 09:57 codeine Allergy ALGY-Swell Verified 01/06/25 09:57 Lip/Tongue/Throat metformin Allergy ADR-Diarrhe Verified 01/06/25 09:57 a nitrofurantoin (From Allergy ALGY-Rash Verified 01/06/25 09:57 Macrobid) Review of Systems Narrative: Constitutional symptoms: Negative except as documented in HPI. Skin symptoms: Negative except as documented in HPI. Eye symptoms: Negative except as documented in HPI. ENMT symptoms: Negative except as documented in HPI. Respiratory symptoms: Negative except as documented in HPI. Cardiovascular symptoms: Negative except as documented in HPI. Gastrointestinal symptoms: Negative except as documented in HPI. Genitourinary symptoms: Negative except as documented in HPI. Musculoskeletal symptoms: Negative except as documented in HPI. Neurologic symptoms: Negative except as documented in HPI. Psychiatric symptoms: Negative except as documented in HPI. Endocrine symptoms: Negative except as documented in HPI. 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, bilateral High risk medication use Inflammatory arthritis Diastolic heart failure Embolic stroke Diabetes mellitus type 2 in obese DJD (degenerative joint disease) Insulin long-term use Bile reflux esophagitis Myalgia Hypertension, benign Hypothyroidism Anxiety Diabetes mellitus Family History Father Heart disease Diabetes Brother Heart disease Diabetes Mother Heart disease Social History Smoking and tobacco/nicotine status: never used tobacco/nicotine Quit status (tobacco/nicotine): has quit using Year quit tobacco: 62 years ago Former quit date comment: 1ppd x 3 years Second hand smoke exposure: Yes (parents and spouse ) Physical Exam Narrative: EXAM NARRATIVE: General: Alert, no acute distress. Skin: Warm, dry. Head: Normocephalic, atraumatic. Neck: Supple, trachea midline. Eye: Extraocular movements are intact. Ears, nose, mouth and throat: mucosa moist. Cardiovascular: Regular, Normal peripheral perfusion. Respiratory: Lungs are clear to auscultation, respirations are non-labored, breath sounds are equal, Symmetrical chest wall expansion. Gastrointestinal: Soft, Nontender, Non distended Musculoskeletal: Left knee is very swollen with bruising and abrasions. She is very tender to palpation particular over patella. No obvious deformity. Neurological: Alert and oriented, No focal neurological deficit observed. Psychiatric: Cooperative, appropriate mood & affect. Course Vital Signs: Vital signs: Vital Signs Temperature 98.1 F 01/14/25 17:02 Pulse Rate 76 01/14/25 18:30 Respiratory Rate 14 01/14/25 18:30 Blood Pressure 142/73 01/14/25 18:35 Pulse Oximetry 98 01/14/25 18:30 Oxygen Delivery Me thod Room Air 01/14/25 18:30 Oxygen Flow Rate 3 01/14/25 17:25 MDM - Extremity (Nontraumatic) Medical Decision Making Medical decision making: Differential diagnosis including but not limited to and based on the above HPI, review of systems and physical exam: In this patient with a musculoskeletal extremity traumatic injury and x-ray is being ordered to rule out fractures and dislocations. Orders placed to evaluate differential diagnosis based on the above differential, HPI and physical exam. Was unclear whether she might need to be admitted for pain control and possible surgery while admitted so a presurgical workup has been done. EKG: Time 1707. Rate 77. Normal sinus rhythm, No ST-T changes, no ectopy, first degree AV Block, EP Interpretation. This was reviewed and interpreted by myself the ER physician at 1711 Chest x-ray: No acute process. No infiltrate. No pneumothorax. This was reviewed and interpreted by myself the emergency room physician. I also reviewed the radiology report. X-ray of the left knee: Displaced patellar fracture. This was reviewed and interpreted by myself the emergency room physician. I also reviewed the radiology report. X-ray of the pelvis and left hip: No obvious fractures. No dislocation. This was reviewed and interpreted by myself the emergency room physician. I also reviewed the radiology report. X-ray of the left femur: No other fractures other than the already described patellar fracture. This was reviewed and interpreted by myself the emergency room physician. I also reviewed the radiology report. Lab review: I reviewed and interpreted all lab work personally. No leukocytosis. No anemia. No renal failure. I reviewed the patient's medical record. Reexamination: Patient's pain is now controlled after Dilaudid and then p.o. Ettrick. Called in some Ettrick for home. No increased work of breathing no altered mental status. We discussed coming in versus going home and she wants to go home. Consultation: I spoke with Dr. Russo who follows the patient in orthopedic clinic already who recommends knee immobilizer, pain control and the patient go home and follow-up in clinic. She may require surgery. Assessment and plan: Patellar fracture ?IV Dilaudid and p.o. Ettrick in the emergency room. - Discharged home - Discussed plan with patient. Answered any questions. - Evaluation and treatment of this problem were appropriate in the emergency setting. Lab Data 01/14/25 18:12 01/14/25 18:12 Radiology Impressions Chest X-Ray 01/14/25 16:59 IMPRESSION: No acute cardiopulmonary findings. Femur X-Ray 01/14/25 16:59 IMPRESSION: 1. Minimally displaced patellar fracture. 2. Prepatellar soft tissue swelling. Hip/Pelvis X-Ray 01/14/25 16:59 IMPRESSION: No acute findings. Knee X-Ray 01/14/25 16:59 IMPRESSION: 1. Displaced patellar fracture. 2. Large joint effusion. 3. Prepatellar and infrapatellar soft tissue swelling. Laboratory Results WBC 9.27 10^3/uL (3.29-11.43) 01/14/25 18:12 RBC 4.31 10^6/uL (3.85-5.65) 01/14/25 18:12 Hgb 12.40 g/dL (11.27-16.99) 01/14/25 18:12 Hct 39.8 % (36-47) 01/14/25 18:12 MCV 92.3 fl (85-98) 01/14/25 18:12 MCH 28.8 pg (27-33) 01/14/25 18:12 MCHC 31.2 g/dL (30-55) 01/14/25 18:12 RDW 14.6 % (12.1-15.1) 01/14/25 18:12 Plt Count 270 10^3/cmm (157-399) 01/14/25 18:12 MPV 9.8 fL (7.4-10.4) 01/14/25 18:12 Neut % (Auto) 65.8 % 01/14/25 18:12 Lymph % (Auto) 20.5 % 01/14/25 18:12 Clare % (Auto) 9.1 % 01/14/25 18:12 Eos % (Auto) 3.3 % 01/14/25 18:12 Baso % (Auto) 0.9 % 01/14/25 18:12 Neut # (Auto) 6.10 10^3/uL (1.8-7.7) 01/14/25 18:12 Lymph # (Auto) 1.9 10^3/uL (0.8-4.8) 01/14/25 18:12 Clare # (Auto) 0.8 10^3/uL (0.2-0.9) 01/14/25 18:12 Eos # (Auto) 0.3 10^3/uL (0.0-0.8) 01/14/25 18:12 Baso # (Auto) 0.1 10^3/uL (0.0-0.1) 01/14/25 18:12 Nucleated RBC % (auto) 0 % 01/14/25 18:12 Nucleated RBCs # 0.0 /100WBC 01/14/25 18:12 PT 14.10 SECONDS (12.1-14.9) 01/14/25 18:12 INR 1.02 (0.8-1.2) 01/14/25 18:12 APTT 28.4 SECONDS (23.9-36.7) 01/14/25 18:12 Sodium 138 mmol/L (136-145) 01/14/25 18:12 Potassium 4.3 mmol/L (3.5-5.1) 01/14/25 18:12 Chloride 101 mmol/L (98-107) 01/14/25 18:12 Carbon Dioxide 24 mmol/L (22-29) 01/14/25 18:12 Anion Gap 17.3 (5-19) 01/14/25 18:12 BUN 14 mg/dL (8-23) 01/14/25 18:12 Creatinine 0.6 mg/dL (0.5-0.9) 01/14/25 18:12 GFR Calculation Not Reportable 01/14/25 18:12 Glucose 169 mg/dL (65-115) H 01/14/25 18:12 Calculated Osmolality 290 mOsm/kg (285-295) 01/14/25 18:12 Lactic Acid 1.1 mmol/L (0.5-2.2) 01/14/25 18:12 Calcium 8.6 mg/dL (8.5-10.5) 01/14/25 18:12 Total Bilirubin 0.2 mg/dL (0.15-1.2) 01/14/25 18:12 AST 18 U/L (0-32) 01/14/25 18:12 ALT 12 U/L (0-33) 01/14/25 18:12 Alkaline Phosphatase 61 U/L (35-105) 01/14/25 18:12 Total Protein 5.9 g/dL (6.6-8.7) L 01/14/25 18:12 Albumin 3.9 g/dL (3.5-5.2) 01/14/25 18:12 Globulin 2.0 g/dL (1.3-4.6) 01/14/25 18:12 All radiology interpretation(s) finalized by discharge Discharge Plan Discharge Patient Disposition: Home Clinical Impression: Patellar fracture Condition: Stable Prescriptions: New hydrocodone-acetaminophen 5-325 mg tablet 1 tab PO Q6H PRN (Reason: pain) Qty: 20 0RF polyethylene glycol 3350 [Miralax] 17 gram/dose powder 17 g PO DAILY Qty: 510 0RF Rx Instructions: Take 1 scoop daily while taking pain medications. No Action pantoprazole 20 mg tablet,delayed release (DR/EC) 20 mg PO DAILY Farxiga 10 mg tablet 10 mg PO QAM losartan [Cozaar] 25 mg tablet 25 mg PO DAILY hydroxyzine HCl 25 mg tablet 25 mg PO DAILY PRN (Reason: anxiety) Toujeo Max U-300 SoloStar 300 unit/mL (3 mL) insulin pen 28 unit SUBCUT QDAY acetaminophen [Tylenol] 325 mg tablet 325 mg PO QID PRN (Reason: Pain) Xarelto 20 mg tablet 20 mg PO DAILY Qty: 90 1RF Rx Instructions: must administer with evening meal at 340 be methocarbamol 500 mg tablet 500 mg PO TID PRN (Reason: muscle spasm) 7 Days Qty: 21 1RF hydrocodone-acetaminophen 5-325 mg tablet 1 tab PO Q6H PRN (Reason: pain) 5 Days Qty: 20 0RF clopidogrel 75 mg tablet 75 mg PO DAILY (DME) sling See Rx Instructions .Route .MEDSUPPLY Qty: 1 0RF Rx Instructions: As directed Ozempic 0.25 mg or 0.5 mg(2 mg/1.5 mL) Pen Injector 0.5 mg SUBCUT Q7D Rx Instructions: ON SUNDAYS atorvastatin 40 mg tablet 40 mg PO DAILY Qty: 90 0RF diclofenac sodium 75 mg tablet,delayed release (DR/EC) 75 mg PO Q12H PRN (Reason: pain) Qty: 20 0RF alendronate 70 mg tablet 70 mg PO Q7D omeprazole 40 mg capsule,delayed release(DR/EC) 40 mg PO DAILY levothyroxine 88 mcg tablet 88 mcg PO DAILY potassium chloride 20 mEq tablet,ER particles/crystals 20 meq PO DAILY furosemide 20 mg tablet 20 mg PO DAILY loratadine 10 mg tablet 10 mg PO QPM duloxetine 20 mg Capsule, Delayed Rel Sprinkle 20 mg PO BID Discharge Orders: Discharge ED (Routine); Ordered 01/14/25 Ordered By: Sanjuanita Sen Referrals: Nuris Moran DO [Primary Care Provider, SOFTWARE SUPPORT ANALYST] Brant Russo DO [Physician, Orthopedics] - 4-7 days Referral Note: Please call for follow-up appointment. Wear knee immobilizer at all times Discharge Diet: Usual diet Discharge Activity: Limit activity as instructed Patient Instructions: Knee Immobilizer (ED), Opioid Safety, Pain Management, Patient Portal & Barrett Instructions Activity Restrictions/Additional Instructions: Thank you for choosing [facility] for your healthcare needs today. You have been screened and evaluated and felt safe for discharge. Health conditions do change or evolve sometimes and as such it is important that you follow up with your Primary Doctor to be re checked, 3-5 days is a general good time frame for follow up. You are always welcome to return to the ED for re assessment if your symptoms are worsening or you have new concerns Print Language: Swedish Coding Level of Care Code ED Family Development Extension Specialist for Barb Gore
[2025-01-14] MEDS: HYDROmorphone 0.5 MG/0.5 ML INJ 1 MG IVP (17:15)
[2025-01-14] MEDS: HYDROcodone-acetaminophen 10-325 mg Tablet 1 TAB PO (18:32)
[2025-01-14 18:36] LABS: Hematocrit 39.8 % (36-47); Hemoglobin 12.40 g/dL (11.27-16.99); Mean Corpuscular HGB Conc 31.2 g/dL (30-55); Mean Corpuscular Hemoglobin 28.8 pg (27-33); Mean Corpuscular Volume 92.3 fl (85-98); Nucleated Red Blood Cells % 0 %; Platelet Count 270 10^3/cmm (157-399); Red Blood Count 4.31 10^6/uL (3.85-5.65); White Blood Count 9.27 10^3/uL (3.29-11.43)
[2025-01-14 19:02] LABS: INR 1.02 (0.8-1.2); Prothrombin Time 14.10 SECONDS (12.1-14.9)
[2025-01-14 19:03] LABS: Partial Thromboplastin Time 28.4 SECONDS (23.9-36.7)
[2025-01-14 19:10] LABS: Alanine Aminotransferase 12 U/L (0-33); Albumin Level 3.9 g/dL (3.5-5.2); Alkaline Phosphatase 61 U/L (35-105); Anion Gap 17.3 (5-19); Aspartate Amino Transferase 18 U/L (0-32); Blood Urea Nitrogen 14 mg/dL (8-23); Calcium 8.6 mg/dL (8.5-10.5); Carbon Dioxide 24 mmol/L (22-29); Chloride 101 mmol/L (98-107); Creatinine Clr Calc Pharmacy 52.1892; Globulin 2.0 g/dL (1.3-4.6); Glucose 169 mg/dL (65-115); Osmolality Calculated 290 mOsm/kg (285-295); Potassium 4.3 mmol/L (3.5-5.1); Sodium 138 mmol/L (136-145); Total Protein 5.9 g/dL (6.6-8.7)
[2025-01-14 19:13] LABS: Lactic Sepsis W/Reflex 1.1 mmol/L (0.5-2.2)
== END 2025-01-14 20:01 | disposition home or self-care (01) ==
PROVIDERS: Emergency Provider Emergency Medicine; PCP Family Medicine
DX: S82.002A Unspecified fracture of left patella, initial encounter for closed fracture (principal); Z87.891 Personal history of nicotine dependence; W19.XXXA Unspecified fall, initial encounter; E11.9 Type 2 diabetes mellitus without complications; I11.0 Hypertensive heart disease with heart failure; I50.30 Unspecified diastolic (congestive) heart failure
CPT/HCPCS: 36415; 71045; 73502; 73552; 73562; 80053; 83605; 85025; 85610; 85730; 93005; 96374; 99285; J1171; J9999

== ENCOUNTER → 2025-01-19 10:04 | Outpatient (BNVA) | payer MEDICARE, OTHER, SELFPAY | PROVIDERS: PCP Family Medicine; Visit Provider Student in an Organized Health Care Education/Training Program | DX: S82.002A Unspecified fracture of left patella, initial encounter for closed fracture (principal); W19.XXXA Unspecified fall, initial encounter | CPT/HCPCS: 73562; 99214 ==

== ENCOUNTER 2025-02-01 10:21 | Day surgery (SDC) | payer MEDICARE, OTHER, SELFPAY ==
--- NOTE | 2025-01-28 13:42 | PC.NURSE ---
Called patient for telephone pre op, pt states that she has been off both of her blood thinner since she seen Dr. Russo on 01/19/2025, pt states that she was canceled last week because she took her ozempic, she has held that as well this week for her upcoming surgery on 02/01/2025, per pt no one from the clinic has called her regarding her blood thinners or an appointment to see cardiology. Clinic was notified and looking into this situation.
[2025-02-01] VITALS (14 sets, daily range): BP systolic 122–195; BP diastolic 67–104; PULSE 83–88; RESP 13–25; TEMP 36.2–37.3; O2SAT 90–97; BMI 33.6
[2025-02-01] MEDS: acetaminophen 1,000 MG/100 ML PIGGYBACK 400 MG IV (12:06)
--- NOTE | 2025-02-01 12:16 | ANES.PREANE2 ---
Pre-Anesthetic Assessment Height/Weight: Height 5 ft 1 in Weight 178 lb O2 Del Method Room Air 02/01/25 11:18 Operation Date: 02/01/25 12:50 Proposed Procedures p ORIF Patella(Left) - Brant Russo DO Last intake: Intake Last Liquid Time 18:00 Last Solid Date 01/31/25 Last Solid Time 15:35 Anesthetic Plan ASA status: 4 Anesthesia: General Other: No prior issues with anesthesia NPO since yesterday evening History of IDDM on Ozempic. Last taken 8 days ago Hypertension on losartan CVA history A-fib, on Plavix and Xarelto. Last taken 8 days ago GERD, controlled with Protonix Labs reviewed and acceptable for procedure Echo 2023 showing preserved EF with elevated filling pressures. Moderate pulmonary hypertension noted Plan for general anesthesia Medications/Allergies Home Medications ?Medication ?Instructions ?Recorded ?Confirmed ?Last Taken ?Type dapagliflozin propanediol 10 mg 10 mg PO QAM 07/10/19 02/01/25 01/31/25 07:00 History tablet (Farxiga) losartan 25 mg tablet (Cozaar) 25 mg PO DAILY 07/10/19 02/01/25 01/31/25 History pantoprazole 20 mg tablet,delayed 20 mg PO DAILY 07/10/19 02/01/25 01/31/25 History release semaglutide 0.25 mg or 0.5 mg (2 0.5 mg SUBCUT Q7D 08/13/21 02/01/25 01/24/25 History mg/1.5 mL) subcutaneous pen injector (Ozempic) acetaminophen 325 mg tablet 325 mg PO QID PRN Pain 10/12/21 02/01/25 01/31/25 History (Tylenol) hydroxyzine HCl 25 mg tablet 25 mg PO DAILY PRN anxiety 10/12/21 02/01/25 01/31/25 History insulin glargine U-300 conc 300 28 unit SUBCUT QDAY 10/12/21 02/01/25 01/31/25 07:00 History unit/mL (3 mL) subcutaneous pen (Toujeo Max U-300 SoloStar) rivaroxaban 20 mg tablet (Xarelto) 20 mg PO DAILY #90 tabs 12/04/21 02/01/25 01/24/25 Rx Held on 01/19/25. Instructions: surgery clopidogrel 75 mg tablet 75 mg PO DAILY 08/15/22 02/01/25 01/24/25 History diclofenac sodium 75 mg 75 mg PO Q12H PRN pain #20 tabs 10/06/24 02/01/25 01/31/25 Rx tablet,delayed release alendronate 70 mg tablet 70 mg PO Q7D 10/16/24 02/01/25 01/31/25 History duloxetine 20 mg capsule,delayed 20 mg PO BID 10/16/24 02/01/25 10/16/24 History release sprinkle furosemide 20 mg tablet 20 mg PO DAILY 10/16/24 02/01/25 01/31/25 History levothyroxine 88 mcg tablet 88 mcg PO DAILY 10/16/24 02/01/25 01/31/25 07:00 History loratadine 10 mg tablet 10 mg PO QPM 10/16/24 02/01/25 01/31/25 History omeprazole 40 mg capsule,delayed 40 mg PO DAILY 10/16/24 02/01/25 01/31/25 History release potassium chloride 20 mEq 20 meq PO DAILY 10/16/24 02/01/25 01/31/25 History tablet,extended release(part/cryst) sling #1 ea 12/15/24 01/19/25 Unknown Rx hydrocodone 5 mg-acetaminophen 325 1 tab PO Q6H PRN pain 5 days #20 01/06/25 02/01/25 01/19/25 Rx mg tablet tabs methocarbamol 500 mg tablet 500 mg PO TID PRN muscle spasm 7 01/06/25 02/01/25 01/31/25 07:00 Rx days #21 tabs hydrocodone 5 mg-acetaminophen 325 1 tab PO Q6H PRN pain #20 tabs 01/14/25 01/19/25 Unknown Rx mg tablet polyethylene glycol 3350 17 17 g PO DAILY #510 grams 01/14/25 02/01/25 01/25/25 Rx gram/dose oral powder (Miralax) enoxaparin 80 mg/0.8 mL 80 mg (0.8 mL) SUBCUT Q12H #1.6 mL 01/19/25 02/01/25 01/24/25 Rx subcutaneous syringe Allergies Allergy/AdvReac Type Severity Reaction Status Date / Time CLEMENTE Inhibitors Allergy ADR-Cough Verified 01/19/25 10:06 aspirin Allergy ADR-Nausea Verified 01/19/25 10:06 codeine Allergy ALGY-Swell Verified 01/19/25 10:06 Lip/Tongue/Throat metformin Allergy ADR-Diarrhe Verified 01/19/25 10:06 a nitrofurantoin (From Allergy ALGY-Rash Verified 01/19/25 10:06 Macrobid) Current Medications Generic Name Dose Route Start Last Admin Trade Name Freq PRN Reason Stop Dose Admin Sodium Chloride 1,000 mls @ 30 mls/hr 02/01/25 12:00 02/01/25 12:15 Sodium Chloride 0.9% IV 02/02/25 11:59 30 mls/hr .Q24H FERMIN Administration PFSH Anesthesia Medical History (Updated 01/22/25 @ 00:00 by URBANO Flores) 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, bilateral High risk medication use Inflammatory arthritis Diastolic heart failure Embolic stroke Diabetes mellitus type 2 in obese DJD (degenerative joint disease) Insulin long-term use Bile reflux esophagitis Myalgia Hypertension, benign Hypothyroidism Anxiety Diabetes mellitus Family History Father Heart disease Diabetes Brother Heart disease Diabetes Mother Heart disease Social History Smoking and tobacco/nicotine status: never used tobacco/nicotine Quit status (tobacco/nicotine): has quit using Year quit tobacco: 62 years ago Former quit date comment: 1ppd x 3 years Second hand smoke exposure: Yes (parents and spouse ) Data Anesthesia Cardiac Studies: Echocardiogram 06/09/24 Cardiac Event Monitor 08/23/21
--- NOTE | 2025-02-01 13:30 | W.PM.OPSUD ---
Surgery/Procedure H&P Update DATE OF PROCEDURE: February 01, 2025 DATE H&P PERFORMED: 01/19/25 H&P UPDATE INFORMATION: I have reviewed H&P completed within last 30 days, I have examined patient prior to procedure and No changes to prior documentation CHANGES TO PREVIOUS DOCUMENTATION: Patient's appropriately stopped her anticoagulant medications and her Ozempic prior to surgery confirmed with her cardiology. At this point time she is ready to proceed with surgical intervention all questions answered at this time. Proceed to the OR today for left patella ORIF. All questions answered at this time. Once again understands the ins and outs procedure risk benefits complication alternatives of surgery and agrees to proceed with surgical invention today. PREOP DIAGNOSIS: Displaced left patella fracture PRIMARY INDICATION FOR PROCEDURE: Displaced left patella fracture PLANNED PROCEDURE: Operation Date: 02/01/25 12:50 Proposed Procedures p ORIF Patella(Left) - Brant Russo DO
[2025-02-01] MEDS: ceFAZolin 2,000 MG in sodium chloride 0.9% (plus) 50 ML 100 MG IV (13:31)
[2025-02-01] MEDS: ROPivacaine 0.5% SDV 30 mL 150 MG INJECTION (14:16)
--- NOTE | 2025-02-01 15:39 | PM.OP ---
Operative Report Date of procedure: February 01, 2025 Pre-op diagnosis: Displaced left patella fracture Post-op diagnosis: Same Post-op findings: See operative report narrative Procedure done: Left patella fracture open reduction internal fixation Implants: Arthrex 4.0 mm cannulated screws x 3 (26 mm, 28 mm, 32 mm) Arthrex cerclage tape Arthrex suture tape Surgeon: Brant Russo DO Displayer Merchandise: Brenden uRsso PA-C: PA was necessary for assistance in this case with leg positioning retraction and protection of neurovascular structures as well as assistance with fracture reduction and fixation with implantation wound closure and dressing application. Anesthesia: General Estimated blood loss: 25mL 60min IV fluids: 900mL Urine output: None Complications: None Findings: See operative report narrative Condition: stable Disposition: same day Brief History: Patient is a pleasant 84-year-old female who sustained a fall onto her left knee and has a displaced left patella fracture with a loss extensor mechanism seen eval in the emergency department sent to the outpatient follow-up with orthopedics was seen evaluated discussed her treatment options through shared decision making she elects proceed with surgical invention for left patella ORIF given she is active and significant pain would like to have this fixed this will allow for obvious fracture reduction and will begin mobilization with patient utilizing knee immobilizer. We talked about her options in detail and through shared decision making she elects proceed with surgical intervention all questions answered at this time. She is appropriately stopped her anticoagulant medications per recommendations by cardiology and cleared to proceed with surgical invention by anesthesia. Patient consent signed in the preoperative holding area. All questions answered at this time. Procedure: Patient seen eval in the preoperative holding area. Consent was reviewed and signed with patient correct extremities and subsequently marked. At this point in time patient was then seen evaluated by anesthesia was cleared for surgery patient was taken back to the operative suite patient was transported onto the OR table all bony prominences well-padded patient appropriate care to bed. Then patient subsequent underwent anesthesia per the anesthesia department once appropriate anesthetized a nonsterile tourniquet was applied to the left thigh. The left lower extremity is then prepped and draped in standard orthopedic fashion. Final timeout performed. Patient received appropriate preoperative biotics. Esmarch tourniquet was used exsanguinate the left lower extremity tourniquet was insufflated to 250 mmHg. I started with a standard midline approach to the anterior aspect of the knee this was centering over the patella fracture. Sharp scalpel excision was made through skin and subcutaneous tissue I then subsequently performed full-thickness skin flaps came down directly over the extensor mechanism. At this point in time I encountered small amount of fracture hematoma communicating at the mid substance at the fracture site of the patella I then incised the periosteum longitudinally at the fracture site and then subperiosteally elevated around the fracture site to get appropriate cortical reads. At this point in time I encountered the fracture hematoma and immature callus that was starting to form. I utilized a curette rongeur and sharp scalpel excision to debride all interposed soft tissue to have appropriate satisfactory reduction. This point time thorough irrigation performed I then utilized a tenaculum clip and under fluoroscopic guidance confirmed to being satisfactory on my reduction in the AP and lateral views. Once I was satisfied with the reduction I then subsequently advanced to K wires in parallel fashion for cannulated screw fixation once this was done I did notice that I still had room for a third screw laterally and to have better spread and screw fixation across the entire fracture site I placed an additional third K wire in parallel fashion these were advanced in parallel fashion transversing across the fracture site care being extra-articular and subsequently this was confirmed to being under fluoroscopic imaging these were advanced just up to the tip of the bone on the more proximal cortices and I subsequently had satisfactory measurements of these I then subsequently drilled the near cortex with the cannulated drill bit on all 3 of these and then subsequently advanced 3 cannulated screws across the fracture site would have excellent fixation these were for 4.0 mm Arthrex and blunted tip patella cannulated screws the screws measured 26 mm, 28 mm and 32 mm. Once these were advanced I then subsequently advanced out the K wires proximally which utilized by my real estate assistant and then subsequently utilizing a fiber loop suture loaded Arthrex suture tape and weaved this through the medial screw in the lateral screw in a [id number] fashion and then subsequently tied this on the superior lateral aspect with excellent fracture reduction and fixation this was tied and then confirming of being satisfactory and then excess suture was then cut. At this point in time to augment my fixation I subsequently performed a standard Arthrex suture tape cerclage with third cerclage tape mechanism. This was then passed circumferentially around the retinaculum and soft tissue from the superior medial circumferentially around patella and then was subsequently utilizing the cerclage system tied this on the superior medial which had once again back up fixation circumferentially around the patella to continue to aid in its fixation and stability. This was then tied and excess sutures were then cut. The knee was then gently taken through range of motion and confirmed being satisfactory reduction on both multiple orthogonal images. Once this was completed thoroughly irrigation performed vancomycin powder was placed in wound bed hemostasis was satisfactory after tourniquet was deflated. I then closed in layered fashion of 0 Vicryl 2-0 Vicryl and kaiser for skin this was then dressed with Xeroform 4 x 4's ABD Curlex soft roll Jeff wrap and then a new knee immobilizer was placed. Patient was then awakened from anesthesia transported onto the hospital bed and taken back to the PACU in stable condition. Disposition: Patient taken to the PACU in stable condition recovering well will discharge home receive appropriate discharge directions as well as pain medication postoperatively instructed on resumption of her anticoagulant medications tomorrow and plan for follow-up in 2 weeks. Patient understands any issues questions or concerns she can contact the office. Patient understands she can weight-bear as tolerated while in the immobilizer strict no knee range of motion at this time. Patient family understand agree with current plan. Questions answered.
--- NOTE | 2025-02-01 15:43 | W.PM.BPON ---
Date of Procedure: [February 01, 2025] Surgeon: [Dr. Russo DO] Industrial X Ray Operator(s): [Brenden Russo PA-C] Procedure(s) performed: [Left knee patella open reduction and internal fixation] Findings of the procedure(s): [Left knee displaced patella fracture. Procedure went well and as planned] Estimated blood loss: [25 mL] Specimen(s) removed: [N/A] Post-operative diagnosis: [Left knee displaced patella fracture]
--- NOTE | 2025-02-01 15:46 | PM.PACU ---
PACU note Narrative: Patient is an 84-year-old female who just underwent a left knee patella ORIF. Pt transferred to PACU in stable condition. Dressing is dry. pt is awake and alert. Knee immobilizer on. Pt can wiggle toes and plantarflex and dorsiflex foot. Distal pulses are palpable toes are warm and well-perfused. Cap refill is normal and under 2 seconds. Sensation to foot is intact. Pain is controlled. Exam: awake Disposition: discharged
[2025-02-01] MEDS: hyDRALAzine 20 mg/mL INJ 1 mL 10 MG IVP (16:18)
--- NOTE | 2025-02-01 16:24 | XR_ITS ---
WS: [id number] C-ARM RADIOGRAPHS LEFT KNEE; 4 IMAGES HISTORY: OR PICS COMPARISON: 01/19/2025 Intraoperative imaging during fixation of patella fracture. Normal alignment with no displacement of the fracture lines. 3 screws transfix a fracture. XR/XR knee LT 3V* [id number] IMPRESSION: ORIF LEFT patellar fracture in good position and alignment.
[2025-02-01] MEDS: HYDROcodone-acetaminophen 5-325 mg Tablet 1 TAB PO (17:08)
--- NOTE | 2025-02-01 18:00 | ANE.PACU2 ---
Inpatient post-anesthesia follow up: Airway intact: Yes Vital signs: Temperature 97.8 F Pulse Rate 86 Respiratory Rate 18 Blood Pressure 159/70 Pulse Oximetry 93 Oxygen Delivery Me thod Room Air Oxygen Flow Rate 2 Fraction of Inspir ed Oxygen Hydration adequate: Yes Nausea and vomiting: No Pain level: 2 Mental status: Baseline
== END 2025-02-01 18:00 | disposition home or self-care (01) ==
PROVIDERS: PCP Family Medicine; Visit Provider Student in an Organized Health Care Education/Training Program
PROC: (CPT 27524; principal; 2025-02-01 12:50)
DX: S82.002A Unspecified fracture of left patella, initial encounter for closed fracture (principal); W18.39XA Other fall on same level, initial encounter; I10 Essential (primary) hypertension; E11.9 Type 2 diabetes mellitus without complications; Z86.73 Personal history of transient ischemic attack (TIA), and cerebral infarction without residual deficits; I48.91 Unspecified atrial fibrillation; K21.9 Gastro-esophageal reflux disease without esophagitis; Z79.4 Long term (current) use of insulin; F41.9 Anxiety disorder, unspecified; Z87.891 Personal history of nicotine dependence
CPT/HCPCS: 27524; 36416; 73562; 76000; 82962; C1713; J0131; J0360; J0690; J1171; J1885; J2704; J2795; J3010; J3373; J7030; J9999

== ENCOUNTER → 2025-02-16 13:18 | Outpatient (BNVA) | payer MEDICARE, OTHER, SELFPAY | PROVIDERS: PCP Family Medicine; Visit Provider Physician Assistant | DX: M79.672 Pain in left foot (principal); Z98.890 Other specified postprocedural states; S92.912D Unspecified fracture of left toe(s), subsequent encounter for fracture with routine healing; X58.XXXD Exposure to other specified factors, subsequent encounter | CPT/HCPCS: 73562; 73630 ==

== ENCOUNTER 2025-02-16 14:35 | Emergency (ER) | payer MEDICARE, OTHER, SELFPAY ==
--- OUTSIDE RECORDS SUMMARY | 2014-07-21 01:45 | XMS_ITS | Continuity of Care Document ---
Author Organization [facility] Address [address] [place] [address] Phone Care Team Providers Care Electronic Data Interchange Specialist Name Role Phone Petr TENA, Sage Unavailable Unavailable Medications Medication Instructions Dosage Effective Dates (start - stop) Status Comments Combigan 0.2 %-0.5 % eye drops instill 1 drop by ophthalmic route every 12 hours into affected eye(s) 1.00 drop - Active Procedures Procedure Date YAG PC AFTER CATARACT LASER SURGERY AFTER CATARACT LASER SURGERY OFFICE/OUTPATIENT VISIT, EST VISUAL FUNCT STATUS ASSESS POSTOP FOLLOW-UP VISIT Not medically necessary [facility] OFFICE/OUTPATIENT VISIT, EST Not medically necessary [facility] POSTOP FOLLOW-UP VISIT CATARACT SURG W/IOL, 1 STAGE DILATED FUNDUS EVAL DONE PRE-SURG EYE MEASURES DOC'D CATARACT SURG W/IOL, 1 STAGE DILATED FUNDUS EVAL DONE PRE-SURG EYE MEASURES DOC'D Pt Not Seen P Encounter # Created Pt Not Seen P Encounter # Created OFFICE/OUTPATIENT VISIT, NEW OPHTHALMIC BIOMETRY OPHTHALMIC BIOMETRY PRE-SURG EYE MEASURES DOC'D DILATED FUNDUS EVAL DONE Pt Not Seen P Encounter # Created Advance Directives Directive Yes / No Effective Date File Name No Information Encounters Encounter Description Practice Location Reason(s) For Visit Diagnoses Date Provider Providers Copied on Encounter [facility], [address] [place] [address], [place], [place], [id number], [place] tel:[phone] [facility] No Information 5 Petr Cazares. [address], [place], [place], [address] , [place]. tel: [phone] Referring Provider: Sage Nieves, [address], [place], [address]. tel:[phone] [facility], [address] [place] [address], [id number], [place] tel:[phone] [facility] [place] No Information 4 Petr Cazares. [address], [place], [place], [address] , [place]. tel:[phone] [facility], [address] [place] [address], [place], [place], [id number], [place] tel:[phone] [facility] No Information 4 Petr Cazares. [address], [address], [place], [place], [address] , [place]. tel:[phone] Referring Provider: Sage Nieves, [address], [place], [address]. tel:[phone] OFFICE/OUTPA TIENT VISIT, EST [facility], [address] [place] [address], [place], [place], [id number], [place] tel:[phone] [facility] No Information 4 Petr Cazares. [address], [place], [place], [address] , [place]. tel:[phone] Referring Provider: Sage Nieves, [address], [place], [address]. tel:[phone] [facility], [address] [place] [address], [place], [place], [id number], [place] tel:[phone] [facility] No Information 2 Petr Cazares. [address], [place], [place], [address] , [place]. tel:[phone] Referring Provider: Damaso Langford OD, [address], [place], [address]. tel:[phone] [facility], [address] [place] [address], [place], [place], [address], [place] tel:[phone] [facility] No Information 2 Petr Cazares. [address], [place], [place], [address] , [place]. tel:[phone] Referring Provider: Sage Nieves, [address], [place], [address]. tel:[phone] OFFICE/OUTPA TIENT VISIT, [facility], [address] [place] [address], [place], [place], [address], [place] tel:[phone] [facility] No Information 2 Petr Cazares. [address], [place], [place], [address] , [place]. tel:[phone] Referring Provider: Sage Nieves, [address], [place], [address]. tel:[phone] [facility], [address] [place] [address], [place], [place], [address], [place] tel:[phone] [facility] No Information 2 Petr Cazares. [address], [address], [place], [place], [address] , [place]. tel:[phone] Referring Provider: Sage Nieves, [address], [place], [address]. tel:[phone] [facility], [address] [place] [address], [id number], tel:[phone] [facility] No Information 2 Petr Cazares. [address], [address], [place], [place], [address] , [place]. tel:[phone] Referring Provider: Sage Nieves, [address], [place], [address]. tel:[phone] [facility], [address] [place] [address], [id number], tel:[phone] [facility] No Information 2 Petr Cazares. [address], [address], [place], [place], [address] , [place]. tel:[phone] Referring Provider: Sage Nieves, [address], [place], [address]. tel:[phone] [facility], [address] [place] [address], [id number], [place] tel:[phone] [facility] No Information 2 Petr Cazares. [address], [place], [place], [address] , [place]. tel:[phone] Referring Provider: Sage Nieves, [address], [place], [address]. tel:[phone] [facility], [address] [place] [address], [id number], [place] tel:[phone] [facility] No Information 2 Petr Cazares. [address], [place], [place], [address] , [place]. tel:[phone] Referring Provider: Damaso Langford OD, [address] [place], [address]. tel:[phone] OFFICE/OUTPA TIENT VISIT, [facility], [address], [id number], tel:[phone] [facility] No Information 2 Petr Cazares. [address] [facility], [address] [place], [place], [address] , [place]. tel:[phone] Referring Provider: Liss Brady OD, [address] [place], [address]. tel:[phone] [facility], [address], [id number], tel:[phone] [facility] No Information 2 Petr Cazares. [address] [facility], [address], [place], [place], [address] , [place]. tel:[phone] Referring Provider: Liss Brady OD, [address] [place], [address]. tel:[phone] Family History Family Member Type Diagnosis Age At Onset No Information Payers Payer name Insurance type Covered libertarian ID Authoriza tion(s) [place] MB [id number] [facility] CI [id number] Social History Type Description Quantity Date Captured Comments Sex Female Smoking Status No Information Chief Complaint And Reason For Visit No Information Reason For Referral Reason For Referral No Information History Of Present Illness Encounter Date Complaint History Of Prese nt Illness No Information Functional Status Date Functional Assessmen t No Information Instructions Date Instruction Additional Infor mation No Information Assessments Type Assessment Date No Information Patient Care Teams Name Effective Dates (start - stop) Status Members No Information
--- NOTE | 2025-02-16 14:38 | USCV_ITS ---
Shena Moreno Age: 84 Gender: F : 1940 Exam Date: 02/16/2025 15:20 Ordering Phys: Sanjuanita Sen MD Technologist: VIOLA [place]am Location[place] [facility] [place]: LE Pain HISTORY: Lower extremity pain. PROCEDURES: Venous duplex imaging was performed in only the left lower extremity. The following venous structures were evaluated: common femoral vein, profunda vein, proximal portion of the greater saphenous vein, superficial femoral vein, and the popliteal vein. In addition, the posterior tibial veins were evaluated. In addition, the posterior tibial and peroneal trunk were evaluated. Serial compression, augmentation maneuvers, and spectral Doppler flow evaluation were performed. FINDINGS: No evidence of DVT seen in any vessel visualized at this time. CONCLUSIONS No evidence of left lower extremity DVT. Juvenal Montenegro MD (Electronically Signed) Final Date: 16 February 2025 15:46 S
[2025-02-16 14:50] VITALS: BP 94/63; PULSE 80; RESP 19; TEMP 36.5; O2SAT 97
--- NOTE | 2025-02-16 14:59 | W.ED.EXTPRO ---
HPI - Extremity Problem General: Chief complaint: Extremity Injury, Lower Stated complaint: Roxanne Russo sent, poss blood clot in L leg Time Seen by Provider: 02/16/25 14:40 History of Present Illness: 84-year-old female presents emergency room for evaluation of possible DVT she recently had a knee surgery evidently she is complaining some pain and swelling in her left calf when she has orthopedics today. She is on Xarelto 20 mg daily. She denies any chest pain or shortness of breath. She is 2 weeks postop from a open reduction internal fixation of the left patella. She is still wearing immobilizer. In addition to Xarelto she is on Plavix Associated symptoms: Deny chest pain, fever(s) or rash Related Data Home Medications ?Medication ?Instructions ?Recorded ?Confirmed dapagliflozin propanediol 10 mg 10 mg PO QAM 07/10/19 02/16/25 tablet (Farxiga) losartan 25 mg tablet (Cozaar) 25 mg PO DAILY 07/10/19 02/16/25 pantoprazole 20 mg tablet,delayed 20 mg PO DAILY 07/10/19 02/16/25 release semaglutide 0.25 mg or 0.5 mg (2 0.5 mg SUBCUT Q7D 08/13/21 02/16/25 mg/1.5 mL) subcutaneous pen injector (Ozempic) acetaminophen 325 mg tablet 325 mg PO QID PRN Pain 10/12/21 02/16/25 (Tylenol) hydroxyzine HCl 25 mg tablet 25 mg PO DAILY PRN anxiety 10/12/21 02/16/25 insulin glargine U-300 conc 300 28 unit SUBCUT QDAY 10/12/21 02/16/25 unit/mL (3 mL) subcutaneous pen (Toujeo Max U-300 SoloStar) clopidogrel 75 mg tablet 75 mg PO DAILY 08/15/22 02/16/25 alendronate 70 mg tablet 70 mg PO Q7D 10/16/24 02/16/25 duloxetine 20 mg capsule,delayed 20 mg PO BID 10/16/24 02/16/25 release sprinkle furosemide 20 mg tablet 20 mg PO DAILY 10/16/24 02/16/25 levothyroxine 88 mcg tablet 88 mcg PO DAILY 10/16/24 02/16/25 loratadine 10 mg tablet 10 mg PO QPM 10/16/24 02/16/25 omeprazole 40 mg capsule,delayed 40 mg PO DAILY 10/16/24 02/16/25 release potassium chloride 20 mEq 20 meq PO DAILY 10/16/24 02/16/25 tablet,extended release(part/cryst) Previous Rx's ?Medication ?Instructions ?Recorded rivaroxaban 20 mg tablet (Xarelto) 20 mg PO DAILY #90 tabs 12/04/21 diclofenac sodium 75 mg 75 mg PO Q12H PRN pain #20 tabs 10/06/24 tablet,delayed release sling #1 ea 12/15/24 methocarbamol 500 mg tablet 500 mg PO TID PRN muscle spasm 7 01/06/25 days #21 tabs polyethylene glycol 3350 17 17 g PO DAILY #510 grams 01/14/25 gram/dose oral powder (Miralax) enoxaparin 80 mg/0.8 mL 80 mg (0.8 mL) SUBCUT Q12H #1.6 mL 01/19/25 subcutaneous syringe left stiff sole insert #1 ea 02/16/25 Allergies Allergy/AdvReac Type Severity Reaction Status Date / Time CLEMENTE Inhibitors Allergy ADR-Cough Verified 02/16/25 14:53 aspirin Allergy ADR-Nausea Verified 02/16/25 14:53 codeine Allergy ALGY-Swell Verified 02/16/25 14:53 Lip/Tongue/Throat metformin Allergy ADR-Diarrhe Verified 02/16/25 14:53 a nitrofurantoin (From Allergy ALGY-Rash Verified 02/16/25 14:53 Macrobid) Review of Systems Const: Denies: fever(s) or chills Card: Denies: chest pain Resp: Denies: dyspnea GI: Denies: abdominal pain : Denies: dysuria, urinary frequency or urinary urgency Musc: Denies: neck pain or back pain Skin/Breast: Denies: rash 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, bilateral High risk medication use Inflammatory arthritis Diastolic heart failure Embolic stroke Diabetes mellitus type 2 in obese DJD (degenerative joint disease) Insulin long-term use Bile reflux esophagitis Myalgia Hypertension, benign Hypothyroidism Anxiety Diabetes mellitus Family History Father Heart disease Diabetes Brother Heart disease Diabetes Mother Heart disease Social History Smoking and tobacco/nicotine status: never used tobacco/nicotine Quit status (tobacco/nicotine): has quit using Year quit tobacco: 62 years ago Former quit date comment: 1ppd x 3 years Second hand smoke exposure: Yes (parents and spouse ) Physical Exam Const: COMMON NORMALS: no acute distress GENERAL APPEARANCE: cooperative and comfortable ORIENTATION/CONSCIOUSNESS: Yes awake, Yes oriented to person, Yes oriented to place and Yes oriented to time HENMT: COMMON NORMALS: normocephalic, atraumatic and hearing grossly normal bilaterally HEAD & SCALP: normocephalic and atraumatic Resp: COMMON NORMALS: normal respiratory effort, No retractions, No use of accessory muscles and clear to auscultation bilaterally AUSCULTATION: clear to auscultation bilaterally Cardio: COMMON NORMALS: regular rate, regular rhythm and No murmurs present (Cardio) RATE: regular rate RHYTHM: regular rhythm Extremity: COMMON NORMALS: normal to inspection, capillary refill normal, no clubbing, cyanosis or edema and no pedal edema OTHER: Mild left calf tenderness Neuro: SENSORIUM/ORIENTATION: Yes oriented to person, Yes oriented to place and Yes oriented to time Skin: COMMON NORMALS: no rashes or lesions noted GENERAL SKIN EXAM: no rashes or lesions noted Course Vital Signs: Vital signs: Vital Signs Temperature 97.7 F 02/16/25 14:50 Pulse Rate 80 02/16/25 14:50 Respiratory Rate 19 H 02/16/25 14:50 Blood Pressure 94/63 02/16/25 14:50 Pulse Oximetry 97 02/16/25 14:50 Oxygen Delivery Me thod Room Air 02/16/25 14:50 MDM - Extremity (Nontraumatic) Medical Decision Making Venous duplex left lower leg normal. Reapplied her leg immobilizer continue Xarelto follow-up with orthopedics as previously planned Medical Records I reviewed the patient's medical records. Lab Data I reviewed the patient's lab results. All radiology interpretation(s) finalized by discharge Discharge Plan Discharge Patient Disposition: Home Clinical Impression: Acute pain of left lower extremity, Status post open reduction and internal fixation (ORIF) of fracture of left patella Condition: Stable Prescriptions: No Action pantoprazole 20 mg tablet,delayed release (DR/EC) 20 mg PO DAILY Farxiga 10 mg tablet 10 mg PO QAM losartan [Cozaar] 25 mg tablet 25 mg PO DAILY hydroxyzine HCl 25 mg tablet 25 mg PO DAILY PRN (Reason: anxiety) Toujeo Max U-300 SoloStar 300 unit/mL (3 mL) insulin pen 28 unit SUBCUT QDAY acetaminophen [Tylenol] 325 mg tablet 325 mg PO QID PRN (Reason: Pain) Xarelto 20 mg tablet 20 mg PO DAILY Qty: 90 1RF Rx Instructions: must administer with evening meal at 340 be methocarbamol 500 mg tablet 500 mg PO TID PRN (Reason: muscle spasm) 7 Days Qty: 21 1RF (DME) left stiff sole insert See Rx Instructions .Route .MEDSUPPLY Qty: 1 0RF Rx Instructions: As directed clopidogrel 75 mg tablet 75 mg PO DAILY (DME) sling See Rx Instructions .Route .MEDSUPPLY Qty: 1 0RF Rx Instructions: As directed enoxaparin 80 mg/0.8 mL syringe 80 mg SUBCUT Q12H Qty: 1.6 0RF Rx Instructions: Take 80mg SQ the morning of 01/20 and evening 01/20 Ozempic 0.25 mg or 0.5 mg(2 mg/1.5 mL) Pen Injector 0.5 mg SUBCUT Q7D Rx Instructions: ON SUNDAYS diclofenac sodium 75 mg tablet,delayed release (DR/EC) 75 mg PO Q12H PRN (Reason: pain) Qty: 20 0RF alendronate 70 mg tablet 70 mg PO Q7D omeprazole 40 mg capsule,delayed release(DR/EC) 40 mg PO DAILY levothyroxine 88 mcg tablet 88 mcg PO DAILY potassium chloride 20 mEq tablet,ER particles/crystals 20 meq PO DAILY furosemide 20 mg tablet 20 mg PO DAILY loratadine 10 mg tablet 10 mg PO QPM duloxetine 20 mg Capsule, Delayed Rel Sprinkle 20 mg PO BID polyethylene glycol 3350 [Miralax] 17 gram/dose powder 17 g PO DAILY Qty: 510 0RF Rx Instructions: Take 1 scoop daily while taking pain medications. Discharge Orders: Discharge ED (Routine); Ordered 02/16/25 Ordered By: Higinio Real Referrals: Nuris Moran DO [Primary Care Provider, WINDOWS DESKTOP ENGINEER] Discharge Diet: Usual diet Discharge Activity: Resume usual activity Patient Instructions: Opioid Safety, Pain Management, Patient Portal & Barrett Instructions Activity Restrictions/Additional Instructions: Thank you for choosing [facility] for your healthcare needs today. It is very important that you follow up as instructed or that you return to the Emergency Department should you have concerns or if your condition changes or worsens in any way. You are seen emergency room the concern over possible blood clot in the left lower leg there is no clot on ultrasound. Continue taking Xarelto continue to follow-up with Ortho as previously scheduled Print Language: [place] Coding Level of Care Code ED Environmental Remediation Consultant for Barb Gore
[2025-02-16 16:56] VITALS: BP 115/67; PULSE 80; O2SAT 93
== END 2025-02-16 16:57 | disposition home or self-care (01) ==
PROVIDERS: Emergency Provider Family Medicine; PCP Family Medicine
DX: M79.662 Pain in left lower leg (principal); Z98.890 Other specified postprocedural states
CPT/HCPCS: 93971; 99024; 99284

== ENCOUNTER 2025-02-16 15:29 | Outpatient (CLI) | payer MEDICARE, OTHER, SELFPAY | END 2025-02-16 15:30 | disposition home or self-care (01) | LOC: SPT 15:30 | PROVIDERS: PCP Family Medicine; Visit Provider Physician Assistant | DX: Z46.89 Encounter for fitting and adjustment of other specified devices (principal); S92.912D Unspecified fracture of left toe(s), subsequent encounter for fracture with routine healing; X58.XXXD Exposure to other specified factors, subsequent encounter | CPT/HCPCS: L3031 ==

== ENCOUNTER → 2025-02-25 09:10 | Outpatient (BNVA) | payer MEDICARE, OTHER, SELFPAY | PROVIDERS: PCP Family Medicine; Visit Provider Podiatrist Foot & Ankle Surgery | DX: E11.42 Type 2 diabetes mellitus with diabetic polyneuropathy (principal); L60.3 Nail dystrophy; M79.672 Pain in left foot; I73.9 Peripheral vascular disease, unspecified; S90.32XA Contusion of left foot, initial encounter; M21.372 Foot drop, left foot; M20.41 Other hammer toe(s) (acquired), right foot; M20.42 Other hammer toe(s) (acquired), left foot; X58.XXXA Exposure to other specified factors, initial encounter | CPT/HCPCS: 11721; 99204 ==

== ENCOUNTER → 2025-03-02 09:33 | Outpatient (BNVA) | payer MEDICARE, OTHER, SELFPAY | PROVIDERS: PCP Family Medicine; Visit Provider Physician Assistant | DX: Z98.890 Other specified postprocedural states (principal); Z87.81 Personal history of (healed) traumatic fracture | CPT/HCPCS: 73562 ==

== ENCOUNTER 2025-03-02 11:33 | Outpatient (CLI) | payer MEDICARE, OTHER, SELFPAY | END 2025-03-02 11:34 | disposition home or self-care (01) | LOC: SPT 11:35 | PROVIDERS: PCP Family Medicine; Visit Provider Physician Assistant | DX: Z47.89 Encounter for other orthopedic aftercare (principal); Z98.890 Other specified postprocedural states; Z87.81 Personal history of (healed) traumatic fracture | CPT/HCPCS: L1832 ==

== ENCOUNTER → 2025-03-16 10:09 | Outpatient (BNVA) | payer MEDICARE, OTHER, SELFPAY | PROVIDERS: PCP Family Medicine; Visit Provider Student in an Organized Health Care Education/Training Program | DX: Z98.890 Other specified postprocedural states (principal); Z87.81 Personal history of (healed) traumatic fracture | CPT/HCPCS: 73560; 73565; 99213 ==

== ENCOUNTER 2025-03-29 13:35 | Outpatient (CLI) | payer MEDICARE, OTHER, SELFPAY ==
--- NOTE | 2025-03-29 13:44 | XR_ITS ---
WS: [id number] PA and lateral chest, 03/29/2025 Clinical Data: EDEMA,PERPIPHERAL DYSPNEA COPD Comparison: Portable chest, 01/14/2025 Findings: The heart is enlarged and there are bilateral pleural effusions. The pulmonary vascularity is slightly increased. No pneumothorax is seen. The aortic arch and descending thoracic aorta show tortuosity. There are cholecystectomy clips in the right upper quadrant. XR/XR chest 2V* [id number] Impression: Cardiomegaly with bilateral effusions and pulmonary vascular congestion consist ent with congestive heart failure.
== END 2025-03-29 13:36 | disposition home or self-care (01) ==
LOC: RAD 13:39
PROVIDERS: PCP Family Medicine; Visit Provider Nurse Practitioner Family
DX: R06.00 Dyspnea, unspecified (principal); J44.9 Chronic obstructive pulmonary disease, unspecified; I51.7 Cardiomegaly; I50.9 Heart failure, unspecified; Z90.49 Acquired absence of other specified parts of digestive tract; I77.810 Thoracic aortic ectasia
CPT/HCPCS: 71046

== ENCOUNTER 2025-04-06 04:44 | Emergency (ER) | payer MEDICARE, OTHER, SELFPAY ==
[2025-04-06 04:44] VITALS: BP 159/83; PULSE 89; RESP 26; TEMP 36.7; O2SAT 97; BMI 35.9
--- NOTE | 2025-04-06 04:50 | XRR_ITS ---
PROCEDURE INFORMATION: Exam: XR Chest Exam date and time: 04/06/2025 04:51 AM Age: 84 years old Clinical indication: Shortness of breath TECHNIQUE: Imaging protocol: Radiologic exam of the chest. Views: 1 view. COMPARISON: CR XR chest 2V* [id number] 03/29/2025 01:54 PM FINDINGS: Lungs: Low lung volumes. Diffusely coarsened interstitial markings with patchy bibasilar airspace disease. Cardiac size is prominent but stable and likely exaggerated by the lower lung volumes. Pleural spaces: Possible bilateral pleural effusions. Heart/Mediastinum: See Lungs finding. Vasculature: Atherosclerotic vascular disease. Bones/joints: Degenerative changes of the spine and shoulders. Osteopenia. XR/XR chest 1V portable [id number] IMPRESSION: 1. Diffusely coarsened interstitial markings with patchy bibasilar airspace disease. 2. Possible bilateral pleural effusions.
--- NOTE | 2025-04-06 04:50 | ECG_ITS ---
[facility] Test Date: 2025-04-06 Pat Name: Shena Moreno Department: Room: Gender: Female Certified Alcohol And Drug Counselor: : 1940 Requested By: Pratibha Kelley Order Number: [id number] Monika MD: Roland Colunga M.D. Measurements Intervals Nolan Rate: 87 P: 0 OR: 0 QRS: 48 QRSD: 95 T: 61 QT: 374 QTc: 452 Interpretive Statements ATRIAL FIBRILLATION Compared to ECG 01/14/2025 17:07:58 Sinus rhythm no longer present First degree AV block no longer present ST (T wave) deviation no longer present Electronically Signed On 04-07-2025 16:56:03 CDT by Roland Colunga M.D. [email or web address]
[2025-04-06 04:58] VITALS: BP 159/83; PULSE 79; RESP 20; O2SAT 98
[2025-04-06 05:00] LABS: Hematocrit 25.8 % (36-47); Hemoglobin 8.10 g/dL (11.27-16.99); Mean Corpuscular HGB Conc 31.4 g/dL (30-55); Mean Corpuscular Hemoglobin 27.9 pg (27-33); Mean Corpuscular Volume 89.0 fl (85-98); Nucleated Red Blood Cells % 0 %; Platelet Count 325 10^3/cmm (157-399); Red Blood Count 2.90 10^6/uL (3.85-5.65); White Blood Count 9.29 10^3/uL (3.29-11.43)
--- NOTE | 2025-04-06 05:16 | W.ED.GENADLT ---
HPI - General Adult General: Chief complaint: Shortness of Breath/Dyspnea Stated complaint: SOB Time Seen by Provider: 04/06/25 04:46 History of Present Illness: Patient is an 84-year-old female presenting with a chief complaint of shortness of breath for 1 month. Patient was seen outpatient and was given several days of Lasix, last of which she took yesterday. Patient states that she has significant shortness of breath when laying down and sleeping. She has not had a fever, runny nose or sore throat. Patient does report a cough but denies hemoptysis, chest pain, painful respirations, syncope. Of note, patient has had surgery on her left lower extremity in January and has not been able to mobilize normally. She states that she has a nonportable oxygen unit at home but this is difficult for her because she has difficulty moving the unit around due to size of the unit and her injury. She has not been able to get an appointment with her wheel grinder until May. She has a pmhx of COPD, CHF, atrial fibrillation on Xarelto, HTN, GERD. She is diagnosed w/diastolic congestive heart failure.Past echocardiogram results from 06/09/24 revealed a left ventricular ejection fraction of 64%. Related Data Home Medications ?Medication ?Instructions ?Recorded ?Confirmed dapagliflozin propanediol 10 mg 10 mg PO QAM 07/10/19 03/16/25 tablet (Farxiga) losartan 25 mg tablet (Cozaar) 25 mg PO DAILY 07/10/19 03/16/25 pantoprazole 20 mg tablet,delayed 20 mg PO DAILY 07/10/19 03/16/25 release semaglutide 0.25 mg or 0.5 mg (2 0.5 mg SUBCUT Q7D 08/13/21 03/16/25 mg/1.5 mL) subcutaneous pen injector (Ozempic) acetaminophen 325 mg tablet 325 mg PO QID PRN Pain 10/12/21 03/16/25 (Tylenol) hydroxyzine HCl 25 mg tablet 25 mg PO DAILY PRN anxiety 10/12/21 03/16/25 insulin glargine U-300 conc 300 28 unit SUBCUT QDAY 10/12/21 03/16/25 unit/mL (3 mL) subcutaneous pen (Toujeo Max U-300 SoloStar) clopidogrel 75 mg tablet 75 mg PO DAILY 08/15/22 03/16/25 alendronate 70 mg tablet 70 mg PO Q7D 10/16/24 03/16/25 duloxetine 20 mg capsule,delayed 20 mg PO BID 10/16/24 03/16/25 release sprinkle furosemide 20 mg tablet 20 mg PO DAILY 10/16/24 03/16/25 levothyroxine 88 mcg tablet 88 mcg PO DAILY 10/16/24 03/16/25 loratadine 10 mg tablet 10 mg PO QPM 10/16/24 03/16/25 omeprazole 40 mg capsule,delayed 40 mg PO DAILY 10/16/24 03/16/25 release potassium chloride 20 mEq 20 meq PO DAILY 10/16/24 03/16/25 tablet,extended release(part/cryst) Previous Rx's ?Medication ?Instructions ?Recorded rivaroxaban 20 mg tablet (Xarelto) 20 mg PO DAILY #90 tabs 12/04/21 diclofenac sodium 75 mg 75 mg PO Q12H PRN pain #20 tabs 10/06/24 tablet,delayed release sling #1 ea 12/15/24 methocarbamol 500 mg tablet 500 mg PO TID PRN muscle spasm 7 01/06/25 days #21 tabs polyethylene glycol 3350 17 17 g PO DAILY #510 grams 01/14/25 gram/dose oral powder (Miralax) enoxaparin 80 mg/0.8 mL 80 mg (0.8 mL) SUBCUT Q12H #1.6 mL 01/19/25 subcutaneous syringe left stiff sole insert #1 ea 02/16/25 left blusto brace #1 ea 03/02/25 Allergies Allergy/AdvReac Type Severity Reaction Status Date / Time CLEMENTE Inhibitors Allergy ADR-Cough Verified 04/06/25 04:53 aspirin Allergy ADR-Nausea Verified 04/06/25 04:53 codeine Allergy ALGY-Swell Verified 04/06/25 04:53 Lip/Tongue/Throat metformin Allergy ADR-Diarrhe Verified 04/06/25 04:53 a nitrofurantoin (From Allergy ALGY-Rash Verified 04/06/25 04:53 Macrobid) PFS ED PFSH: Medical History (Updated 04/06/25 @ 06:11 by Pratibha Kelley MD) 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, bilateral High risk medication use Inflammatory arthritis Diastolic heart failure Embolic stroke Diabetes mellitus type 2 in obese DJD (degenerative joint disease) Insulin long-term use Bile reflux esophagitis Myalgia Hypertension, benign Hypothyroidism Anxiety Diabetes mellitus Family History Father Heart disease Diabetes Brother Heart disease Diabetes Mother Heart disease Social History Smoking and tobacco/nicotine status: never used tobacco/nicotine Quit status (tobacco/nicotine): has quit using Year quit tobacco: 62 years ago Former quit date comment: 1ppd x 3 years Second hand smoke exposure: Yes (parents and spouse ) Physical Exam Narrative: EXAM NARRATIVE: Vitals were reviewed. Patient is alert, oriented and able to provide history. She is normotensive. Patient does not tachycardic. She has mildly increased respiratory rate. She has SpO2 of 97% on room air on 2 L of nasal cannula. Patient has diminished lung sounds, crackles bilaterally and B-lines on BSUS. Patient has a soft, nondistended abdomen. Patient does not appear to have any significant lower extremity edema or asymmetry though her left lower extremity is immobilized. Course Vital Signs: Vital signs: Vital Signs Temperature 98.0 F 04/06/25 04:44 Pulse Rate 85 04/06/25 05:53 Respiratory Rate 18 04/06/25 05:45 Blood Pressure 159/83 04/06/25 04:58 Pulse Oximetry 98 04/06/25 05:45 Oxygen Delivery Me thod Nasal Cannula 04/06/25 05:45 Oxygen Flow Rate 2 04/06/25 05:45 [facility] - General Adult Medical Decision Making 84-year-old female with a past medical history of COPD, CHF, atrial fibrillation on Eliquis, recent lower extremity surgery and immobilization presents with a chief complaint of 1 month of worsening of shortness of breath. Patient states that she does not have a portable oxygen machine at home and has difficulty navigating her large machine with her injury. Differential diagnosis includes but is not limited to, viral upper respiratory infection, pneumonia, bronchitis, pulmonary edema, decompensation of CHF, ACS, pericardial effusion, PE, other. Patient was treated with a DuoNeb. She was evaluate CBC, CMP, troponin, BNP, COVID and flu screen, EKG, chest x-ray and CT PE to rule out a pulmonary embolus given worsening shortness of breath and recent surgery/immobilization. Patient has a normal white blood cell count. Patient is anemic but I suspect that this is due to previous surgery in January. Patient has mild hypokalemia, will be replaced orally. She has adequate kidney function and a normal anion gap. Troponin is minimally elevated but I suspect this is chronic for patient. BNP is elevated and combined w/B lines on BSUS, this is most consistent w/mild CHF exacerbation. She will be given dose of lasix. She is negative for COVID and flu. I did consider PE but patient already takes xarelto, has not had hemoptysis, chest pain, pain w/respiration, syncope and is doing well on baseline 2L of NC (she has O2 at home). She reports strict compliance w/her medications. Patient's daughter also states patient is compliant with her mediations. Clinically, her presentation is more consistent w/CHF and through shared decision making, we deferred CT at this time. Patient is comfortable going home. She has an appointment with her doctor this afternoon. Patient was counseled on return precautions, advised to follow-up this afternoon with her regular doctor. Lab Data 04/06/25 04:53 04/06/25 04:53 Laboratory Results WBC 9.29 10^3/uL (3.29-11.43) 04/06/25 04:53 RBC 2.90 10^6/uL (3.85-5.65) L 04/06/25 04:53 Hgb 8.10 g/dL (11.27-16.99) L 04/06/25 04:53 Hct 25.8 % (36-47) L 04/06/25 04:53 MCV 89.0 fl (85-98) 04/06/25 04:53 MCH 27.9 pg (27-33) 04/06/25 04:53 MCHC 31.4 g/dL (30-55) 04/06/25 04:53 RDW 15.1 % (12.1-15.1) 04/06/25 04:53 Plt Count 325 10^3/cmm (157-399) 04/06/25 04:53 MPV 9.3 fL (7.4-10.4) 04/06/25 04:53 Neut % (Auto) 67.5 % 04/06/25 04:53 Lymph % (Auto) 17.8 % 04/06/25 04:53 [place] % (Auto) 7.9 % 04/06/25 04:53 Eos % (Auto) 5.5 % 04/06/25 04:53 Baso % (Auto) 0.8 % 04/06/25 04:53 Neut # (Auto) 6.28 10^3/uL (1.8-7.7) 04/06/25 04:53 Lymph # (Auto) 1.7 10^3/uL (0.8-4.8) 04/06/25 04:53 [place] # (Auto) 0.7 10^3/uL (0.2-0.9) 04/06/25 04:53 Eos # (Auto) 0.5 10^3/uL (0.0-0.8) 04/06/25 04:53 Baso # (Auto) 0.1 10^3/uL (0.0-0.1) 04/06/25 04:53 Nucleated RBC % (auto) 0 % 04/06/25 04:53 Nucleated RBCs # 0.0 /100WBC 04/06/25 04:53 Sodium 138 mmol/L (136-145) 04/06/25 04:53 Potassium 3.3 mmol/L (3.5-5.1) L 04/06/25 04:53 Chloride 99 mmol/L (98-107) 04/06/25 04:53 Carbon Dioxide 30 mmol/L (22-29) H 04/06/25 04:53 Anion Gap 12.3 (5-19) 04/06/25 04:53 BUN 20 mg/dL (8-23) 04/06/25 04:53 Creatinine 0.4 mg/dL (0.5-0.9) L 04/06/25 04:53 GFR Calculation Not Reportable 04/06/25 04:53 Glucose 132 mg/dL (65-115) H 04/06/25 04:53 Calculated Osmolality 290 mOsm/kg (285-295) 04/06/25 04:53 Calcium 8.6 mg/dL (8.5-10.5) 04/06/25 04:53 Total Bilirubin 0.3 mg/dL (0.15-1.2) 04/06/25 04:53 AST 14 U/L (0-32) 04/06/25 04:53 ALT 8 U/L (0-33) 04/06/25 04:53 Alkaline Phosphatase 78 U/L (35-105) 04/06/25 04:53 Troponin T Baseline 21 ng/L (0-10) H 04/06/25 04:53 NT-Pro-B Natriuret Pep 916 pg/mL (0-450) H 04/06/25 04:53 Total Protein 6.3 g/dL (6.6-8.7) L 04/06/25 04:53 Albumin 3.9 g/dL (3.5-5.2) 04/06/25 04:53 Globulin 2.4 g/dL (1.3-4.6) 04/06/25 04:53 Influenza A (PCR) Negative (Negative) 04/06/25 04:55 Influenza Type B (PCR) Negative (Negative) 04/06/25 04:55 RSV (PCR) Negative (Negative) 04/06/25 04:55 SARS-CoV-2 (PCR) Negative (Negative) 04/06/25 04:55 XR interpretation done by ED provider, pending radiology final review EKG Data EKG 1: Interpretation: Atrial fibrillation with a heart rate of 87, normal axis, normal QT/QTc, narrow complex, no evidence of ST segment elevation. Discharge Plan Discharge Patient Disposition: Home Clinical Impression: Acute exacerbation of congestive heart failure Condition: Stable Prescriptions: No Action pantoprazole 20 mg tablet,delayed release (DR/EC) 20 mg PO DAILY Farxiga 10 mg tablet 10 mg PO QAM losartan [Cozaar] 25 mg tablet 25 mg PO DAILY hydroxyzine HCl 25 mg tablet 25 mg PO DAILY PRN (Reason: anxiety) Toujeo Max U-300 SoloStar 300 unit/mL (3 mL) insulin pen 28 unit SUBCUT QDAY acetaminophen [Tylenol] 325 mg tablet 325 mg PO QID PRN (Reason: Pain) Xarelto 20 mg tablet 20 mg PO DAILY Qty: 90 1RF Rx Instructions: must administer with evening meal at 340 be methocarbamol 500 mg tablet 500 mg PO TID PRN (Reason: muscle spasm) 7 Days Qty: 21 1RF (DME) left stiff sole insert See Rx Instructions .Route .MEDSUPPLY Qty: 1 0RF Rx Instructions: As directed clopidogrel 75 mg tablet 75 mg PO DAILY (DME) sling See Rx Instructions .Route .MEDSUPPLY Qty: 1 0RF Rx Instructions: As directed (DME) left blusto brace See Rx Instructions .Route .MEDSUPPLY Qty: 1 0RF Rx Instructions: As directed enoxaparin 80 mg/0.8 mL syringe 80 mg SUBCUT Q12H Qty: 1.6 0RF Rx Instructions: Take 80mg SQ the morning of 01/20 and evening 01/20 Ozempic 0.25 mg or 0.5 mg(2 mg/1.5 mL) Pen Injector 0.5 mg SUBCUT Q7D Rx Instructions: ON SUNDAYS diclofenac sodium 75 mg tablet,delayed release (DR/EC) 75 mg PO Q12H PRN (Reason: pain) Qty: 20 0RF alendronate 70 mg tablet 70 mg PO Q7D omeprazole 40 mg capsule,delayed release(DR/EC) 40 mg PO DAILY levothyroxine 88 mcg tablet 88 mcg PO DAILY potassium chloride 20 mEq tablet,ER particles/crystals 20 meq PO DAILY furosemide 20 mg tablet 20 mg PO DAILY loratadine 10 mg tablet 10 mg PO QPM duloxetine 20 mg Capsule, Delayed Rel Sprinkle 20 mg PO BID polyethylene glycol 3350 [Miralax] 17 gram/dose powder 17 g PO DAILY Qty: 510 0RF Rx Instructions: Take 1 scoop daily while taking pain medications. Discharge Orders: Discharge ED (Routine); Ordered 04/06/25 Ordered By: Pratibha Kelley Referrals: Nuris Moran DO [Primary Care Provider, [employer]] Patient Instructions: Opioid Safety, Pain Management, Patient Portal & Barrett Instructions, Heart Failure (DC) Activity Restrictions/Additional Instructions: Please continue to monitor your condition very closely at home. Please understand that your condition is most consistent with mild decompensation of known heart failure. However, it can rarely happen that you can get a blood clot in your lungs despite the fact that you are on anticoagulation. Please continue to monitor very closely for chest pain, sharp chest pain with breathing, coughing up blood, fainting spell, worsening shortness of breath despite additional medication in the emergency department. If your condition worsens or new concerns arise before you are able to see your doctor, please return immediately to the emergency department. Please see your doctor this afternoon. Discussed outpatient CT scan of your chest with your primary care physician. Print Language: Yakut Coding Level of Care Code ED Title I Director for Barb Gore
[2025-04-06 05:24] LABS: Troponin(5th) Baseline 21 ng/L (0-10)
[2025-04-06 05:33] LABS: Alanine Aminotransferase 8 U/L (0-33); Albumin Level 3.9 g/dL (3.5-5.2); Alkaline Phosphatase 78 U/L (35-105); Anion Gap 12.3 (5-19); Aspartate Amino Transferase 14 U/L (0-32); Blood Urea Nitrogen 20 mg/dL (8-23); Calcium 8.6 mg/dL (8.5-10.5); Carbon Dioxide 30 mmol/L (22-29); Chloride 99 mmol/L (98-107); Creatinine Clr Calc Pharmacy 54.0530; Globulin 2.4 g/dL (1.3-4.6); Glucose 132 mg/dL (65-115); NT Pro B Type Natriuretic Pept 916 pg/mL (0-450); Osmolality Calculated 290 mOsm/kg (285-295); Potassium 3.3 mmol/L (3.5-5.1); Sodium 138 mmol/L (136-145); Total Protein 6.3 g/dL (6.6-8.7)
[2025-04-06 05:40] LABS: Respiratory Syncytial Virus Ce NEGATIVE (Negative); SARS-CoV-2 PCR NEGATIVE (Negative)
[2025-04-06 05:45] VITALS: PULSE 90; RESP 18; O2SAT 98
[2025-04-06 05:53] VITALS: PULSE 85
[2025-04-06] MEDS: FUROsemide 10 mg/mL SDV 4mL 40 MG IVP (06:30)
[2025-04-06 06:39] VITALS: BP 146/70; PULSE 86; RESP 18; O2SAT 97
== END 2025-04-06 07:19 | disposition home or self-care (01) ==
PROVIDERS: Emergency Provider Emergency Medicine; PCP Family Medicine
DX: I11.0 Hypertensive heart disease with heart failure (principal); I50.30 Unspecified diastolic (congestive) heart failure; E11.9 Type 2 diabetes mellitus without complications; Z87.891 Personal history of nicotine dependence; Z11.52 Encounter for screening for COVID-19; Z79.02 Long term (current) use of antithrombotics/antiplatelets
CPT/HCPCS: 36415; 71045; 80053; 83880; 84484; 85025; 87637; 93005; 94640; 96374; 99284; J1938; J9999

== ENCOUNTER 2025-04-08 10:28 | Outpatient (CLI) | payer MEDICARE, OTHER, SELFPAY ==
--- NOTE | 2025-04-08 11:13 | USCV_ITS ---
Shena Moreno Age: 84 Gender: F : 1940 Exam Date: 04/08/2025 11:16 Ordering Phys: Nuris Moran DO Technologist: [place] [facility] [place]: [place] HISTORY: Swelling. PROCEDURES: Venous duplex imaging was performed in only the left lower extremity. Serial compression, augmentation maneuvers, and spectral Doppler flow evaluation were performed. Comparison:. FINDINGS: Normal 2-D Doppler and augmentation and compressibility throughout the lower extremity venous structures. Additional imaging through the proximal calf veins also reveals no thrombus. Limited evaluation of the greater saphenous vein is patent with no thrombus. CONCLUSIONS No DVT left lower extremity. Dr. Jinny Richardson DO (Electronically Signed) Final Date: 08 April 2025 14:36 S
== END 2025-04-08 10:29 | disposition home or self-care (01) ==
LOC: RAD 10:29
PROVIDERS: PCP Family Medicine; Visit Provider Family Medicine
DX: M79.89 Other specified soft tissue disorders (principal)
CPT/HCPCS: 93971

== ENCOUNTER 2025-04-24 05:00 | Outpatient (RCR) | payer MEDICARE, OTHER, SELFPAY | END 2025-05-23 23:59 | disposition home or self-care (01) | LOC: SPT 05:00 | PROVIDERS: Visit Provider Student in an Organized Health Care Education/Training Program | DX: Z98.890 Other specified postprocedural states (principal) | CPT/HCPCS: 97161 ==

== ENCOUNTER → 2025-04-27 10:50 | Outpatient (BNVA) | payer MEDICARE, OTHER, SELFPAY | PROVIDERS: PCP Family Medicine; Visit Provider Student in an Organized Health Care Education/Training Program | DX: Z98.890 Other specified postprocedural states (principal); Z87.81 Personal history of (healed) traumatic fracture | CPT/HCPCS: 73562 ==

== ENCOUNTER 2025-04-27 15:02 | Outpatient (CLI) | payer MEDICARE, OTHER, SELFPAY | END 2025-04-27 15:03 | disposition home or self-care (01) | LOC: SPT 15:03 | PROVIDERS: PCP Family Medicine; Visit Provider Student in an Organized Health Care Education/Training Program | DX: Z47.89 Encounter for other orthopedic aftercare (principal); Z98.890 Other specified postprocedural states; Z87.81 Personal history of (healed) traumatic fracture | CPT/HCPCS: L1812 ==

== ENCOUNTER → 2025-05-28 10:05 | Outpatient (BNVA) | payer MEDICARE, OTHER, SELFPAY | PROVIDERS: PCP Family Medicine; Visit Provider Internal Medicine Cardiovascular Disease | DX: I48.91 Unspecified atrial fibrillation (principal); I11.0 Hypertensive heart disease with heart failure; I50.30 Unspecified diastolic (congestive) heart failure; G25.81 Restless legs syndrome; Z79.01 Long term (current) use of anticoagulants | CPT/HCPCS: 99214 ==